=== PATIENT | male | born 1945 | race Caucasian/White ===

== ENCOUNTER 2021-06-04 03:54 | Inpatient (IN) | payer OTHER, MEDICARE, SELFPAY ==
[2021-06-04] VITALS (36 sets, daily range): BP systolic 98–167; BP diastolic 48–91; PULSE 72–100; RESP 12–38; TEMP 36.1–37.7; O2SAT 77–96; BMI 30.1
--- NOTE | 2021-06-04 04:02 | HP.PCM.HOS_ITS ---
HPI - General General Date of Admission: 06/04/21 HPI Narrative YOANDY VELÁZQUEZ, is a 76 M with a significant history of hypertension; pacemaker (reports that when he sleeps he has a flat line and required a pacemaker) and prediabetes who presented to outside hospital ED ([facility]) with shortness of breath that started about 7 days prior to presentation. Associated with his symptoms is pinkish productive cough. Also, patient reports rhinorrhea with a pinkish nasal secretions. He reports dysgeusia and decreased smell sensation. He has not been vaccinated against COVID-19 virus. Reportedly a lady friend from [place] while talking to him over the phone realized that patient was having difficulty breathing so she called 911 and patient was transferred to the hospital. Even then patient had a home covid screen that was positive before the EMS visit. At the Emergency Department at [facility] patient oxygen saturation was 92 to 94% on 50% Venturi mask. His troponin was marginally elevated. [facility] Medical History Cholecystectomy planned Pacemaker Stomach ulcer Home Medications Ultram 50 mg PO/SL QHS 06/04/21 [History Last Taken Unknown] Vitamin C 06/04/21 [History Last Taken Unknown] Vitamin D (with calcium) 06/04/21 [History Last Taken Unknown] ascorbic acid (vitamin C) 500 mg PO DAILY 06/04/21 [History Last Taken Unknown] bilberry 150 mg PO DAILY 06/04/21 [History Last Taken Unknown] cholecalciferol (vitamin D3) 06/04/21 [History Last Taken Unknown] cinnamon bark [Cinnamon] 500 mg PO DAILY 06/04/21 [History Last Taken Unknown] coenzyme Q10 [Co Q-10] 200 mg PO DAILY 06/04/21 [History Last Taken Unknown] dabigatran etexilate [Pradaxa] 150 mg PO BID 06/04/21 [History Last Taken Unknown] ginkgo biloba [Ginkgo] 60 mg PO BID 06/04/21 [History Last Taken Unknown] lisinopril 06/04/21 [History Last Taken Unknown] metoprolol succinate 50 mg PO/SL BID 06/04/21 [History Last Taken Unknown] simvastatin 80 mg PO/SL DAILY 06/04/21 [History Last Taken Unknown] zinc 50 mg PO DAILY 06/04/21 [History Last Taken Unknown] Allergy/AdvReac Type Severity Reaction Status Date / Time codeine Allergy Rash Verified 06/04/21 03:44 Family History Other Cancer Surgical History H/O prostatectomy Social History Smoking Status: Former smoker ROS ROS Narrative Constitutional: Reports fever, and chills. Denies anorexia Eyes: Denies blurry vision, change in eye color, change in vision, discharge from eye(s), double vision, erythema, eye pain, loss of vision or other HEENT: Reports pinkish nasal secretions. Denies abnormal hearing, dysphagia, ear pain, headache(s), hearing loss, sinus pressure, sore throat or other Cardiovascular: Denies chest pain or palpitations. Respiratory/Chest: Shortness of breath. Reports a productive cough. Gastrointestinal: Denies abdominal pain, coffee ground emesis, constipation, diarrhea, dyspepsia, hematemesis, hematochezia, loose stools, melena, nausea, vomiting or other Genitourinary: Denies burning urination, difficulty urinating, dysuria, hematuria, nocturia, urinary frequency, urinary hesitancy, urinary incontinence, urinary urgency or other Musculoskeletal: Denies arthralgias, back pain, joint pain, joint stiffness, joint swelling, myalgias, neck pain or other Neurologic: Denies abnormal gait, abnormal speech, confusion, disequilibrium, dizziness, focal weakness, headache(s), numbness, paresthesias, seizure-like activity, seizures, syncope, tingling, tremor(s) or other Psychiatric: Denies anxiety, depression, homicidal ideation, suicidal ideation or other Endocrinology: Denies cold intolerance, excessive sweating, heat intolerance, polydipsia, polyuria or other Hematologic/Lymphatic: Denies anemia, easy bruising, lymphadenopathy or other Integumentary: Denies rashes Allergic/Immunologic: Denies rhinitis, hives, eczema, asthma or other Vital Signs Vital Signs Vital Signs: Weight Weight: 89.811 kg Body Mass Index (BMI) 30.1 Physical Exam Narrative Physical exam: General: Well-nourished, well-developed. Head: Normocephalic, atraumatic, no tenderness Eyes: PERRLA, EOMI ENT, no trauma, moist mucous membranes, no rhinorrhea Neck: Nontender, full range of motion, no spinal tenderness, deformities, step- off CVS: Regular rate and rhythm. S1-S2 present. No murmur, gallop or rub. Respiratory : Tachypnea, chest wall nontender, rales Abdomen: Soft, nontender, nondistended, normal bowel sounds, no masses : Deferred Back: Nontender, no CVA tenderness, no midline spinal tenderness, deformities, step-offs Extremities: Nontender full range of motion, no trauma Skin: Normal color, no trauma, abrasions Neuro: Alert, oriented, cranial nerves II through XII grossly intact. Psychiatry: Normal mood. Normal affect. Not depressed. Not anxious. Results Lab / Micro Data Result Diagrams: 06/04/21 04:57 06/04/21 04:57 Assessment & Plan Assessment/Plan (1) Acute respiratory failure with hypoxemia: (2) Pneumonia due to 2019 novel coronavirus: (3) Prediabetes: PLAN: Acute hypoxemic respiratory failure secondary to SARS- COV 2 Patient with rapid Covid test at outside hospital. Impression of chest x-ray by radiology at outside hospital was multifocal pneumonia. Patient required Venturi mask 50% to maintain oxygen saturation of 90 to 25% outside hospital. He was brought to our hospital high flow oxygen at 15 L and his oxygen saturation was about 88 percent. Continue oxygen supplementation. Decadron at outside hospital ED. Decadron continued. Creatinine clearance is more than 30. We will start patient on remdesivir. Will trend CMP and CBC. Sputum and pinkish rhinorrhea that could be blood we will rule out PE with chest CTA. Of note patient is on Pradaxa that will be continued. Patient is unclear of why he is on Pradaxa. He reported that previously was on fish oil and the fish oil was switched to Pradaxa. Will admit to intensive care unit and will consult environmental remediation engineer. Tylenol for fever Mucinex ordered Procalcitonin ordered. Prediabetes Review of ED labs showed showed glucose of 166 on BMP. With steroid anticipate blood glucose requirements. Accu-Chek QA CHS with correction scale insulin ordered. DAVID on CKD stage IIIa DAVID likely secondary to COVID-19 virus. CKD likely secondary to prediabetes and hypertensive nephrosclerosis. Creatinine at outside hospital was 1.49. Per ED doctor at outside hospital creatinine baseline is around 1.2. Creatinine on presentation to the hospital is 1.89. Trend BMP. Will avoid fluids at this time. Elevated troponin. Troponin at outside Hospital ED was elevated at 0.064 (normal 0.000 to 0.056). Likely secondary to kidney disease. Will trend troponin at this time. History of HTN Blood pressures are soft. Parameters placed on metoprolol. Trend Blood pressures. DVT Prophylaxis: Home Pradaxa continued. Charges/Coding Visit Charges Inpatient E&M: 42132 Init Hosp L3
[2021-06-04 05:13] LABS: Absolute Lymphocyte Count 0.34 X10^3/uL (0.83-4.51); Absolute Neutrophil Count 8.4 X10^3/uL (2.0-7.7); Basophil# 0.02 X10^3/uL; Basophil% 0.2 % (0-1); Hematocrit 47.2 % (40-54); Hemoglobin 15.6 g/dL (13.0-16.5); Lymphocyte # 0.34 X10^3/ul (0.83-4.51); Lymphocyte % 3.8 % (19-41); Mean Corp Hgb Conc 33.1 g/dL (32-36); Mean Corpuscular Hgb 29.3 pg (27.0-32.0); Mean Corpuscular Volume 88.7 fL (80-94); Mean Platelet Vol. 9.3 fl (6.2-12.0); Monocyte% 2.2 % (0-10); NRBC Flagged by Analyzer 0 % (0-5); Neutrophil # 8.39 X10^3/uL (2.7-7.7); Neutrophil % 93.4 % (47-70); POSITIVE DIFFERENTIAL YES; Platelet Count 296 K/mm3 (150-450); RBC Distribution Width SD 45.1 fl (35.1-43.9); Red Blood Count 5.32 M/mm3 (4.6-6.2)
[2021-06-04 05:14] LABS: Differential Indicated SCAN CRITERIA MET
[2021-06-04 05:27] LABS: Differential Comment SCANNED
[2021-06-04 05:31] LABS: ALB/GLOB Ratio 0.6 RATIO (0.9-2.4); AST(SGOT) 89 U/L (15-37); Alanine Aminotransfer ALT/SGPT 38 U/L (16-61); Albumin, Serum 3.4 g/dL (3.2-5.0); Alkaline Phosphatase 105 U/L (45-117); Anion Gap 10 (5-15); BUN 33 mg/dL (7-18); BUN/Creat Ratio 17.5 RATIO (10-20); Calcium,Total 9.8 mg/dL (8.5-10.1); Chloride 99 mmol/L (98-107); Creatinine, Serum 1.89 mg/dL (0.70-1.30); EST Glomerular Filtration Rate 37 mL/min (>60); Est Glom Filt Rate - Afr Amer 45 mL/min (>60); Estimated Creatinine Clearance 32.17 ml/min; Globulin 5.8 g/dL (2.2-4.2); Glucose 178 mg/dL (74-106); Potassium 3.3 mmol/L (3.5-5.1); Protein, Total 9.2 g/dL (6.4-8.2); Sodium Level 135 mmol/L (136-145)
[2021-06-04 05:38] LABS: Procalcitonin 16.84 ng/mL (0.00-0.09)
--- NOTE | 2021-06-04 05:46 | PCS.PANDOC ---
PANDEMIC DOCUMENTATION INITIATED: Date: 03/21/2021 Time: 190
[2021-06-04] MEDS: guaiFENesin 1,200 MG Tablet 1200 MG PO ×2 (06:04→22:05)
--- NOTE | 2021-06-04 07:14 | EX.PCM.CONCC ---
Assessment & Plan Assessment/Plan (1) Acute respiratory failure with hypoxemia: (2) Pneumonia due to 2019 novel coronavirus: PLAN: RECOMMENDATIONS: 1. Continue patient on heated high flow and wean FiO2 for saturations greater than 90%. 2. If the patient continues to decompensate from a respiratory perspective, BiPAP can be initiated. 3. Continue remdesivir and Decadron as ordered. Monitor liver and renal function accordingly. 4. Obtain infectious diseases consultation. Check CRP as well. 5. Check D-dimer level. CTA chest order has been discontinued. 6. Clarify need for Pradaxa. IMPRESSIONS: 1. Acute hypoxemic respiratory failure secondary to COVID-19 pneumonia The patient presented to the hospital with progressive symptoms within 10 days of onset. He is unvaccinated at baseline. The patient has been initiated on remdesivir and Decadron. Given worsening oxygen status, the patient would likely be a candidate for baricitinib. Recommend infectious diseases consultation. The patient continues to decompensate further, empiric antimicrobials will be initiated. Need to clarify the reason that the patient is on Pradaxa at baseline. Although CTA was initially ordered, I do not feel that it is imperative that a CTA be obtained, especially in light of the patient's renal insufficiency. We will check D-dimer level though. 2. Acute on chronic kidney disease Likely prerenal in etiology and related to acute presentation. Hold on CTA chest given underlying renal insufficiency. Continue to monitor urine output for now. No current indication for renal replacement therapy. Avoid nephrotoxic medications. 3. Obesity/hypertension/hyperlipidemia Complicates care, management, recovery and prognosis. Continue home medications as indicated. CODE status: Discussed CODE status at length including difference between FULL code, DNR-CCA and DNR-CC status. Following discussions about the differences in these status, patient requested full CODE STATUS. Advanced Care Planning Face to Face Time: 12 minutes This note was generated with Pushpayation software. It may contain incorrect words, spelling, and punctuation that were not noted in checking the note before signing. HPI Consult Data Date of Consult: 06/04/21 HPI Narrative Reason for Consultation: Acute hypoxemic respiratory failure secondary to COVID-19 pneumonia HPI Narrative: The patient is a 76-year-old male, with a history as outlined below, who presented to the ICU as a transfer of care from an outside hospital with progressive dyspnea, productive cough and rhinorrhea. The patient is unvaccinated against coronavirus. Although the patient is currently on Pradaxa, he is unable to tell me why he is prescribed the medication. On presentation to the ICU, the patient was noted to be afebrile and hemodynamically stable. He was hypoxemic, requiring the initiation of heated high flow O2 to maintain saturations. Laboratory evaluation revealed a potassium of 3.3 and creatinine of 1.89. Total bili was increased to 1.2 with an AST of 89. Procalcitonin was elevated at 16.8. Outside hospital laboratory records were reviewed: BNP was elevated at 1807. Creatinine there was noted to be 1.49. Coronavirus PCR was positive on June 03. The patient was initiated on Decadron and remdesivir. [facility] Medical History Cholecystectomy planned Pacemaker Stomach ulcer Home Medications Ultram 50 mg PO/SL QHS 06/04/21 [History Last Taken Unknown] Vitamin C 06/04/21 [History Last Taken Unknown] Vitamin D (with calcium) 06/04/21 [History Last Taken Unknown] ascorbic acid (vitamin C) 500 mg PO DAILY 06/04/21 [History Last Taken Unknown] bilberry 150 mg PO DAILY 06/04/21 [History Last Taken Unknown] cholecalciferol (vitamin D3) 06/04/21 [History Last Taken Unknown] cinnamon bark [Cinnamon] 500 mg PO DAILY 06/04/21 [History Last Taken Unknown] coenzyme Q10 [Co Q-10] 200 mg PO DAILY 06/04/21 [History Last Taken Unknown] dabigatran etexilate [Pradaxa] 150 mg PO BID 06/04/21 [History Last Taken Unknown] ginkgo biloba [Ginkgo] 60 mg PO BID 06/04/21 [History Last Taken Unknown] lisinopril 06/04/21 [History Last Taken Unknown] metoprolol succinate 50 mg PO/SL BID 06/04/21 [History Last Taken Unknown] simvastatin 80 mg PO/SL DAILY 06/04/21 [History Last Taken Unknown] zinc 50 mg PO DAILY 06/04/21 [History Last Taken Unknown] Allergy/AdvReac Type Severity Reaction Status Date / Time codeine Allergy Rash Verified 06/04/21 03:44 Family History Other Cancer Surgical History H/O prostatectomy Social History Smoking Status: Former smoker ROS Constitutional Constitutional: Reports fatigue and headache(s) Eyes Eyes: Denies blurry vision or change in vision ENT HEENT: Reports loss taste/smell, nasal congestion and nasal discharge Cardiovascular Cardiovascular: Reports dyspnea; Denies chest pain Respiratory/Chest Respiratory/Chest: Reports cough and dyspnea Gastrointestinal Gastrointestinal: Denies abdominal pain, diarrhea, nausea or vomiting Genitourinary Genitourinary: Denies difficulty urinating Musculoskeletal Musculoskeletal: Denies arthralgias, back pain or joint pain Integumentary Integumentary: Denies lesions, rash or skin ulcer Neurologic Neurologic: Denies abnormal gait Psychiatric Psychiatric: Denies anxiety or depression Endocrine Endocrinology: Reports fatigue Hematologic/Lymphatic Hematologic/Lymphatic: Denies easy bleeding or easy bruising Physical Exam Const alert General Appearance: cooperative and comfortable Nutritional Appearance: obese HEENT normocephalic and head/scalp atraumatic Eyes PERRL, EOMs intact bilaterally and conjunctivae normal Neck supple General: trachea midline Chest inspection of chest normal Resp Effort and Inspection: able to speak in complete sentences and tachypneic Auscultation: rales; Negative for rhonchi or wheezes Cardio regular rate and regular rhythm GI normal to inspection, nondistended, normoactive bowel sounds Extremity no clubbing, cyanosis or edema Skin no rashes or lesions noted Neuro moves all extremities and no focal motor deficits Psych cooperative and affect normal Lab / Micro Data Result Diagrams: 06/04/21 04:57 06/04/21 04:57 Labs: Laboratory Results - last 24 hr 06/04/21 04:57: Procalcitonin 16.84 H 06/04/21 04:57: WBC 9.0, RBC 5.32, Hgb 15.6, Hct 47.2, MCV 88.7, MCH 29.3, MCHC 33.1, RDW Std Deviation 45.1 H, RDW Coeff of Miles 14.0, Plt Count 296, MPV 9.3, Immature Gran % (Auto) 0.400, Neut % (Auto) 93.4 H, Lymph % (Auto) 3.8 L, [place] % (Auto) 2.2, Eos % (Auto) 0.0, Baso % (Auto) 0.2, Absolute Neuts (auto) 8.4 H, Absolute Lymphs (auto) 0.34 L, Nucleated RBC % 0, Differential Comment SCANNED 06/04/21 04:57: Sodium 135 L, Potassium 3.3 L, Chloride 99, Carbon Dioxide 26.0, Anion Gap 10, BUN 33 H, Creatinine 1.89 H, Estim Creat Clear Calc 32.17, Est GFR (MDRD) Af Amer 45 L, Est GFR (MDRD) Non-Af 37 L, BUN/Creatinine Ratio 17.5, Glucose 178 H, Calcium 9.8, Total Bilirubin 1.20 H, AST 89 H, ALT 38, Alkaline Phosphatase 105, Total Protein 9.2 H, Albumin 3.4, Globulin 5.8 H, Albumin/Globulin Ratio 0.6 L Charges/Coding Visit Charges Inpatient E&M: 33379 Init Hosp L3 Multi Select Codes Hospitalists' Procedures Procedures: 01717 Advncd Care Plan 30 Min
--- NOTE | 2021-06-04 07:45 | RAD_ITS ---
STUDY: X-RAY CHEST REASON FOR EXAM: Male, 76 years old. Respiratory Failure, COVID+ TECHNIQUE: Single AP portable view of the chest. COMPARISON: Prior comparison studies are not available for review at this time. FINDINGS: Dual-chamber left-sided cardiac pacer device in place. Prominent interstitial markings more confluent in the left lower lung. There is no demonstrated pleural abnormality. There is borderline cardiomegaly. Normal mediastinum and seth. Normal visualized pulmonary arteries. The thoracic spine is not well-seen. No demonstrated acute osseous changes. There is no demonstrated abnormality of the visualized soft tissue structures of the upper abdomen. RAD/Chest 1 View (Portable) IMPRESSION: Bilateral interstitial infiltrates more prominent in the left lower lung. Electronically Signed: Dangelo Gonzales MD at 9:22 EDT Tel , Service support ,
[2021-06-04] MEDS: Ascorbic Acid 500 MG Tablet PO (08:22)
[2021-06-04] MEDS: Metoprolol(XL)Succ 50 MG Tablet PO ×2 (08:22→22:05)
[2021-06-04] MEDS: Dabigatran Etexilate Mesylate 150 MG Capsule PO ×2 (08:22→22:07)
[2021-06-04] MEDS: dexAMETHasone 2 MG TABLET 6 MG PO (08:23)
[2021-06-04] MEDS: Insulin Lispro 100 UNIT/ML INSULN.PEN SC ×3 (08:24→16:30)
--- NOTE | 2021-06-04 08:42 | PCM.PN.HOSP ---
Subjective Subjective Follow-up on acute hypoxic respiratory failure/COVID-19 pneumonia: Patient was seen and examined. He remains on Airvo. Denies any fever or chest pain. Objective Data Objective Data Vital Signs: Vital Signs Temp Pulse Resp BP Pulse Ox 97 F L 95 16 132/63 H 91 06/04/21 06:00 06/04/21 08:22 06/04/21 06:51 06/04/21 08:22 06/04/21 06:51 Oxygen Flow Rate (L/min) 15 Oxygen Delivery Method Nasal Cannula Weight: 89.8 kg Body Mass Index (BMI) 30.1 Intake & Output: Intake and Output for Last 24 Hours 06/02/21 06/03/21 06/04/21 23:59 23:59 23:59 Intake Total 100 / 100 Balance 100 / 100 Lab / Micro Data Result Diagrams: 06/04/21 04:57 06/04/21 04:57 Labs: Laboratory Results - last 24 hr 06/04/21 04:57: Procalcitonin 16.84 H 06/04/21 04:57: WBC 9.0, RBC 5.32, Hgb 15.6, Hct 47.2, MCV 88.7, MCH 29.3, MCHC 33.1, RDW Std Deviation 45.1 H, RDW Coeff of Miles 14.0, Plt Count 296, MPV 9.3, Immature Gran % (Auto) 0.400, Neut % (Auto) 93.4 H, Lymph % (Auto) 3.8 L, [place] % (Auto) 2.2, Eos % (Auto) 0.0, Baso % (Auto) 0.2, Absolute Neuts (auto) 8.4 H, Absolute Lymphs (auto) 0.34 L, Nucleated RBC % 0, Differential Comment SCANNED 06/04/21 04:57: Sodium 135 L, Potassium 3.3 L, Chloride 99, Carbon Dioxide 26.0, Anion Gap 10, BUN 33 H, Creatinine 1.89 H, Estim Creat Clear Calc 32.17, Est GFR (MDRD) Af Amer 45 L, Est GFR (MDRD) Non-Af 37 L, BUN/Creatinine Ratio 17.5, Glucose 178 H, Calcium 9.8, Total Bilirubin 1.20 H, AST 89 H, ALT 38, Alkaline Phosphatase 105, Total Protein 9.2 H, Albumin 3.4, Globulin 5.8 H, Albumin/Globulin Ratio 0.6 L Physical Exam Narrative Physical exam: General: Alert, Oriented x3, Cooperative, No apparent distress, on Airvo HEENT: Atraumatic Oral: Moist Mucosa Neck: Supple Lungs: Diminished to auscultation Cardiovascular: HS I+II, regular, no murmurs Abdomen: Bowel Sounds Present, Soft, Non Tender Extremities: No edema Assessment & Plan Assessment/Plan (1) Acute respiratory failure with hypoxemia: (2) Pneumonia due to 2019 novel coronavirus: (3) Prediabetes: PLAN: 1. Acute hypoxemic respiratory failure secondary to acute COVID-19 pneumonia Patient is Airvo. Admitting chest x-ray shows bilateral decisional infiltrate more prominent to the left lung Patient's D-dimer is elevated; unable to do CTA of the chest on account of kidney function, continue Would continue on IV Decadron and remdesivir; will be discontinued remdesivir if kidney functions worsens Would consult ID for consideration for Baricitinib Medical Record Retrieval Specialist following 2. DAVID on CKD stage IIIa, creatinine today is 1.89 Creatinine at outside hospital was 1.49. Continue to hold lisinopril Will trend creatinine 3. Hypokalemia, replaced 4. Indeterminant troponins, troponin has plateaued in the 70s secondary to #1 5. Hypertension, controlled, continue metoprolol Charges/Coding Visit Charges Inpatient E&M: 95907 Subs Hosp L3
[2021-06-04 09:08] LABS: Troponin-I HS 74 pg/mL (3.0-78.0)
[2021-06-04 09:24] LABS: Troponin-I HS 89 pg/mL (3.0-78.0)
--- NOTE | 2021-06-04 10:50 | RAD_ITS ---
STUDY: X-RAY CHEST REASON FOR EXAM: Male, 76 years old. PICC Insertion TECHNIQUE: Single AP portable view of the chest. COMPARISON: 06/04/2021, 7:38 AM. FINDINGS: New right-sided PICC line with its tip in the superior vena cava. Dual-chamber left-sided cardiac pacer device in stable position. Bilateral infiltrates slightly more prominent in right upper lobe. There is no demonstrated pleural abnormality. There is mild cardiac enlargement. Normal mediastinum and seth. Normal visualized pulmonary arteries. Atherosclerotic calcifications of the aortic arch. Stable osseous structures. There is no demonstrated abnormality of the visualized soft tissue structures of the upper abdomen. RAD/CXR for Line Placement IMPRESSION: Status post right-sided PICC line placement. Bilateral infiltrates may be slightly worse in the right lung than the previous exam. Electronically Signed: Dangelo Gonzales MD at 11:19 EDT Tel , Service support ,
[2021-06-04 11:45] LABS: D-Dimer Quantitative (DVT/PE) 1.47 FEU/ug/m (0.27-0.49)
[2021-06-04 11:50] LABS: Troponin-I HS 77 pg/mL (3.0-78.0)
[2021-06-04 12:01] LABS: Bedside Glucose 201 mg/dL (70-110)
[2021-06-04 15:28] LABS: M R Staph aureus DNA By PCR Negative (Negative); Probe Check PASS; Specimen Processing Control PASS
--- NOTE | 2021-06-04 16:10 | CASEMGMT ---
RN CM attempted to call patient in room to complete assessment, no answer. Patient currently on Airvo 60L. CM will attempt to complete assessment at later time.
[2021-06-04] MEDS: Potassium Chloride Oral Tablet 20 MEQ 40 MEQ PO (16:28)
[2021-06-04 16:46] LABS: Bedside Glucose 177 mg/dL (70-110)
[2021-06-04] MEDS: Atorvastatin Calcium 40 MG Tablet PO (22:05)
[2021-06-04] MEDS: traMADol 50 MG Tablet PO (22:17)
[2021-06-04] MEDS: Acetaminophen 325 MG Tablet 650 MG PO (22:18)
[2021-06-04] MEDS: Ondansetron 4 MG/2 ML Vial IV (23:44)
[2021-06-05] VITALS (44 sets, daily range): BP systolic 65–167; BP diastolic 44–100; PULSE 60–115; RESP 12–45; TEMP 36.6–39.5; O2SAT 83–97
[2021-06-05 00:01] LABS: Bedside Glucose 148 mg/dL (70-110)
[2021-06-05] MEDS: Haloperidol Lactate 5 MG/ML Vial 2 MG IV (05:23)
[2021-06-05 06:16] LABS: Absolute Neutrophil Count 12.2 X10^3/uL (2.0-7.7); Basophil# 0.03 X10^3/uL; Basophil% 0.2 % (0-1); Hematocrit 41.7 % (40-54); Hemoglobin 13.7 g/dL (13.0-16.5); Lymphocyte % 3.8 % (19-41); Mean Corp Hgb Conc 32.9 g/dL (32-36); Mean Corpuscular Volume 88.2 fL (80-94); Mean Platelet Vol. 10.3 fl (6.2-12.0); Monocyte# 0.47 X10^3/uL; Monocyte% 3.5 % (0-10); NRBC Flagged by Analyzer 0 % (0-5); Neutrophil # 12.23 X10^3/uL (2.7-7.7); Neutrophil % 91.8 % (47-70); POSITIVE DIFFERENTIAL YES; Platelet Count 315 K/mm3 (150-450); RBC Distribution Width CV 14.1 % (11.6-14.6); RBC Distribution Width SD 45.4 fl (35.1-43.9); Red Blood Count 4.73 M/mm3 (4.6-6.2); White Blood Count 13.3 K/mm3 (4.4-11.0)
[2021-06-05 06:22] LABS: Differential Indicated SCAN CRITERIA MET
--- NOTE | 2021-06-05 06:40 | PCM.PN.HOSP ---
Subjective Subjective Follow-up on acute hypoxic respiratory failure/COVID-19 pneumonia: Patient was seen and examined. His oxygen saturation is worsening. He did not tolerate BiPAP. Overnight he started having fevers. He has been started on Zosyn empirically. He will be started on Precedex with the hope of tolerating BiPAP. Objective Data Objective Data Vital Signs: Vital Signs Temp Pulse Resp BP Pulse Ox 101.4 F H 91 40 H 133/74 H 89 06/05/21 00:00 06/05/21 05:55 06/05/21 05:55 06/05/21 04:00 06/05/21 05:55 Oxygen Flow Rate (L/min) 60 Oxygen Delivery Method Airvo Weight: 93.855 kg Body Mass Index (BMI) 30.1 Intake & Output: Intake and Output for Last 24 Hours 06/03/21 06/04/21 06/05/21 23:59 23:59 23:59 Intake Total 966 / 966 262 / 262 Output Total 210 / 210 150 / 150 Balance 756 / 756 112 / 112 Lab / Micro Data Result Diagrams: 06/05/21 05:10 06/05/21 05:10 Labs: Laboratory Results - last 24 hr 06/04/21 04:57: Troponin I High Sens 89 H 06/04/21 08:30: D-Dimer Quant (PE/DVT) Cancelled 06/04/21 08:30: Troponin I High Sens 74 06/04/21 11:20: Troponin I High Sens 77, C-React Prot Ext Range 187.00 H 06/04/21 11:20: D-Dimer Quant (PE/DVT) 1.47 H* 06/04/21 11:20: MRSA (PCR) Negative 06/04/21 11:42: POC Glucose 201 H 06/04/21 16:29: POC Glucose 177 H 06/04/21 22:03: POC Glucose 148 H 06/05/21 05:10: WBC 13.3 H, RBC 4.73, Hgb 13.7, Hct 41.7, MCV 88.2, MCH 29.0, MCHC 32.9, RDW Std Deviation 45.4 H, RDW Coeff of Miles 14.1, Plt Count 315, MPV 10.3, Immature Gran % (Auto) 0.700, Neut % (Auto) 91.8 H, Lymph % (Auto) 3.8 L, [place] % (Auto) 3.5, Eos % (Auto) 0.0, Baso % (Auto) 0.2, Absolute Neuts (auto) 12.2 H, Absolute Lymphs (auto) 0.50 L, Nucleated RBC % 0 Micro: Microbiology 06/04/21 18:05 Urine, Clean Catch Legionella Antigen - Final 06/04/21 18:05 Urine, Clean Catch Streptococcus pneumoniae Antigen (M - Final 06/04/21 09:40 Interface Orders Respiratory Panel (PCR) - Final Radiography Diagnostic Testing: Radiology Impression Chest X-Ray 06/04/21 07:45 IMPRESSION: Bilateral interstitial infiltrates more prominent in the left lower lung. Electronically Signed: Dangelo Gonzales MD at 9:22 EDT Tel , Service support , Chest X-Ray 06/04/21 10:50 IMPRESSION: Status post right-sided PICC line placement. Bilateral infiltrates may be slightly worse in the right lung than the previous exam. Electronically Signed: Dangelo Gonzales MD at 11:19 EDT Tel , Service support , Physical Exam Narrative Physical exam: General: Alert, Oriented x3, Cooperative, in mild respiratory distress, on Airvo, obese HEENT: Atraumatic Oral: Moist Mucosa Neck: Supple Lungs: Diminished to auscultation Cardiovascular: HS I+II, regular, no murmurs Abdomen: Bowel Sounds Present, Soft, Non Tender Extremities: No edema Assessment & Plan Assessment/Plan (1) Acute respiratory failure with hypoxemia: (2) Pneumonia due to 2019 novel coronavirus: (3) Prediabetes: PLAN: 76-year-old male, unvaccinated against coronavirus, who was admitted with worsening shortness of breath. He was transferred from [facility]. 1. Acute hypoxemic respiratory failure secondary to acute COVID-19 pneumonia, worsening Remains on Airvo, did not tolerate BiPAP; BiPAP will be retried again with Precedex Patient is full code Admitting chest x-ray shows bilateral interstitial infiltrates more prominent to the left lung Patient's D-dimer is elevated; unable to do CTA of the chest on account of kidney function, continue Would continue on IV Decadron, remdesivir and baricitinib Infectious disease and lung gun operator consulted 2. DAVID on CKD stage IIIa, appears to have slightly improved today Creatinine today is 1.45; Creatinine at outside hospital was 1.49. Continue to hold lisinopril Will trend creatinine 3. Hypokalemia, replaced 4. Indeterminant troponins, troponin has plateaued in the 70s secondary to #1 5. Hypertension, controlled, continue metoprolol Charges/Coding Visit Charges Inpatient E&M: 31415 Subs Hosp L3
--- NOTE | 2021-06-05 06:41 | PCM.PN.INT ---
Assessment & Plan Assessment/Plan (1) Acute respiratory failure with hypoxemia: (2) Pneumonia due to 2019 novel coronavirus: PLAN: RECOMMENDATIONS: 1. Start Precedex to facilitate BiPAP adherence. Low threshold for intubation. 2. Continue BiPAP therapy and wean FiO2 to maintain oxygen saturations at or above 90%. 3. Start empiric antimicrobials. 4. Continue remdesivir, Decadron and baricitinib. Continue to monitor liver and renal function. 5. Continue DOAC per home regimen. IMPRESSIONS: 1. Acute hypoxemic respiratory failure secondary to COVID-19 pneumonia The patient presented to the hospital with progressive symptoms within 10 days of onset. He is unvaccinated at baseline. Unfortunately, the patient's oxygenation status continues to worsen. He has been reluctant to utilize BiPAP therapy. Therefore, Precedex has been started to facilitate BiPAP adherence. He will be continued on noninvasive positive pressure ventilatory support and FiO2 will be weaned as tolerated. If the patient does not tolerate BiPAP, will proceed with intubation. In the interim, the patient will be continued on remdesivir, Decadron and baricitinib. In light of his current clinical status, empiric antimicrobials have been initiated. Continue DOAC per home regimen. 2. Acute on chronic kidney disease Improving. Likely prerenal in etiology and related to acute presentation. Hold on CTA chest given underlying renal insufficiency. Continue to monitor urine output for now. No current indication for renal replacement therapy. Avoid nephrotoxic medications. 3. Obesity/hypertension/hyperlipidemia Complicates care, management, recovery and prognosis. Continue home medications as indicated. CODE status: Discussed CODE status at length including difference between FULL code, DNR-CCA and DNR-CC status. Following discussions about the differences in these status, patient requested full CODE STATUS. TIME: 34 minutes of critical care time was spent addressing the patient's acute hypoxemic respiratory failure secondary to COVID-19 pneumonia, acute on chronic kidney disease, review of all data and collaboration with care team. Subjective Subjective The patient was seen and examined at the bedside this morning. Events from the last 24 hours have been reviewed. The patient did have a fever overnight of 101.4 ?F. He is currently hemodynamically stable. Nursing staff did report worsening oxygenation overnight along with increased work of breathing. The patient has been intolerant of BiPAP due to anxiety. He is currently on maximum support from a heated high flow perspective. He is currently documented to be overall net +900 mL for the hospital admission. White count is elevated at 13,000. Creatinine has improved to 1.45. AST and ALT are mildly increased. Objective Data Objective Data The patient's most recent lab work, culture data and imaging studies have all been personally reviewed. Coronavirus PCR was positive on June 03. Respiratory viral panel was negative. Strep and urine Legionella antigens were negative. MRSA screen was negative. Vital Signs: Vital Signs Temp Pulse Resp BP Pulse Ox 101.4 F H 91 40 H 133/74 H 89 06/05/21 00:00 06/05/21 05:55 06/05/21 05:55 06/05/21 04:00 06/05/21 05:55 Oxygen Flow Rate (L/min) 60 Oxygen Delivery Method Airvo Weight: 93.855 kg Body Mass Index (BMI) 30.1 Intake & Output: Intake and Output for Last 24 Hours 06/03/21 06/04/21 06/05/21 23:59 23:59 23:59 Intake Total 966 / 966 262 / 262 Output Total 210 / 210 150 / 150 Balance 756 / 756 112 / 112 Lab / Micro Data Attestation: I reviewed the patient's lab results. Result Diagrams: 06/05/21 05:10 06/05/21 05:10 Labs: Laboratory Results - last 24 hr 06/04/21 04:57: Troponin I High Sens 89 H 06/04/21 08:30: D-Dimer Quant (PE/DVT) Cancelled 06/04/21 08:30: Troponin I High Sens 74 06/04/21 11:20: Troponin I High Sens 77, C-React Prot Ext Range 187.00 H 06/04/21 11:20: D-Dimer Quant (PE/DVT) 1.47 H* 06/04/21 11:20: MRSA (PCR) Negative 06/04/21 11:42: POC Glucose 201 H 06/04/21 16:29: POC Glucose 177 H 06/04/21 22:03: POC Glucose 148 H 06/05/21 05:10: WBC 13.3 H, RBC 4.73, Hgb 13.7, Hct 41.7, MCV 88.2, MCH 29.0, MCHC 32.9, RDW Std Deviation 45.4 H, RDW Coeff of Miles 14.1, Plt Count 315, MPV 10.3, Immature Gran % (Auto) 0.700, Neut % (Auto) 91.8 H, Lymph % (Auto) 3.8 L, [place] % (Auto) 3.5, Eos % (Auto) 0.0, Baso % (Auto) 0.2, Absolute Neuts (auto) 12.2 H, Absolute Lymphs (auto) 0.50 L, Nucleated RBC % 0 Micro: Microbiology 06/04/21 18:05 Urine, Clean Catch Legionella Antigen - Final 06/04/21 18:05 Urine, Clean Catch Streptococcus pneumoniae Antigen (M - Final 06/04/21 09:40 Interface Orders Respiratory Panel (PCR) - Final Radiography Diagnostic Testing: Radiology Impression Chest X-Ray 06/04/21 07:45 IMPRESSION: Bilateral interstitial infiltrates more prominent in the left lower lung. Electronically Signed: Dangelo Gonzales MD at 9:22 EDT Tel , Service support , Chest X-Ray 06/04/21 10:50 IMPRESSION: Status post right-sided PICC line placement. Bilateral infiltrates may be slightly worse in the right lung than the previous exam. Electronically Signed: Dangelo Gonzales MD at 11:19 EDT Tel , Service support , Physical Exam Const alert and no apparent distress General Appearance: ill appearing and on BiPAP Nutritional Appearance: obese HEENT normocephalic and head/scalp atraumatic Eyes PERRL, EOMs intact bilaterally and conjunctivae normal Neck supple General: trachea midline Chest inspection of chest normal Resp Effort and Inspection: tachypneic Auscultation: rales; Negative for rhonchi or wheezes Cardio regular rate and regular rhythm GI normal to inspection, nondistended, normoactive bowel sounds Extremity no clubbing, cyanosis or edema Skin no rashes or lesions noted Neuro moves all extremities and no focal motor deficits Psych Mood & Affect: anxious Charges/Coding Procedures Hospitalists Procedures: 22290 Critial Care 1st Hr
[2021-06-05 06:42] LABS: ALB/GLOB Ratio 0.5 RATIO (0.9-2.4); AST(SGOT) 124 U/L (15-37); Alanine Aminotransfer ALT/SGPT 64 U/L (16-61); Albumin, Serum 2.4 g/dL (3.2-5.0); Alkaline Phosphatase 97 U/L (45-117); Anion Gap 8 (5-15); BUN 44 mg/dL (7-18); BUN/Creat Ratio 30.3 RATIO (10-20); Calcium,Total 8.9 mg/dL (8.5-10.1); Chloride 102 mmol/L (98-107); Creatinine, Serum 1.45 mg/dL (0.70-1.30); EST Glomerular Filtration Rate 50 mL/min (>60); Est Glom Filt Rate - Afr Amer 61 mL/min (>60); Estimated Creatinine Clearance 41.93 ml/min; Globulin 4.8 g/dL (2.2-4.2); Glucose 124 mg/dL (74-106); Potassium 4.1 mmol/L (3.5-5.1); Protein, Total 7.2 g/dL (6.4-8.2); Sodium Level 136 mmol/L (136-145)
[2021-06-05] MEDS: Piperacil/Tazobactam 3.375 GM/50 ML ML IV ×3 (06:45→23:47)
[2021-06-05] MEDS: Acetaminophen 650 MG Suppository RC (13:20)
[2021-06-05 15:06] LABS: Bedside Glucose 105 mg/dL (70-110)
[2021-06-05] MEDS: dexAMETHasone 10 MG/ML Vial 6 MG IV (15:57)
[2021-06-05] MEDS: 0.9% Saline Lock 10 ML Syringe IV (15:59)
[2021-06-05 17:41] LABS: Bedside Glucose 101 mg/dL (70-110)
[2021-06-05] MEDS: Enoxaparin 100 MG/ML Syringe 90 MG SC (21:07)
[2021-06-06] VITALS (33 sets, daily range): BP systolic 83–127; BP diastolic 54–76; PULSE 59–90; RESP 12–32; TEMP 35.5–36.2; O2SAT 86–100
[2021-06-06 03:50] LABS: Absolute Lymphocyte Count 0.46 X10^3/uL (0.83-4.51); Absolute Neutrophil Count 5.3 X10^3/uL (2.0-7.7); Basophil# 0.01 X10^3/uL; Basophil% 0.2 % (0-1); Hematocrit 40.8 % (40-54); Lymphocyte # 0.46 X10^3/ul (0.83-4.51); Lymphocyte % 7.7 % (19-41); Mean Corp Hgb Conc 31.9 g/dL (32-36); Mean Corpuscular Hgb 28.9 pg (27.0-32.0); Mean Corpuscular Volume 90.7 fL (80-94); Mean Platelet Vol. 10.1 fl (6.2-12.0); Monocyte# 0.21 X10^3/uL; Monocyte% 3.5 % (0-10); NRBC Flagged by Analyzer 0 % (0-5); Neutrophil # 5.26 X10^3/uL (2.7-7.7); Neutrophil % 88.1 % (47-70); POSITIVE DIFFERENTIAL YES; Platelet Count 260 K/mm3 (150-450); RBC Distribution Width CV 14.5 % (11.6-14.6); RBC Distribution Width SD 48.8 fl (35.1-43.9)
[2021-06-06 03:57] LABS: Differential Indicated SCAN CRITERIA MET
[2021-06-06 04:08] LABS: ALB/GLOB Ratio 0.4 RATIO (0.9-2.4); AST(SGOT) 77 U/L (15-37); Alanine Aminotransfer ALT/SGPT 57 U/L (16-61); Albumin, Serum 2.1 g/dL (3.2-5.0); Alkaline Phosphatase 87 U/L (45-117); Anion Gap 8 (5-15); BUN 63 mg/dL (7-18); BUN/Creat Ratio 30.9 RATIO (10-20); Calcium,Total 8.6 mg/dL (8.5-10.1); Chloride 107 mmol/L (98-107); Creatinine, Serum 2.04 mg/dL (0.70-1.30); EST Glomerular Filtration Rate 34 mL/min (>60); Est Glom Filt Rate - Afr Amer 41 mL/min (>60); Globulin 4.7 g/dL (2.2-4.2); Glucose 149 mg/dL (74-106); Potassium 4.4 mmol/L (3.5-5.1); Protein, Total 6.8 g/dL (6.4-8.2); Sodium Level 140 mmol/L (136-145)
--- NOTE | 2021-06-06 06:58 | PN.CC_ITS ---
Assessment & Plan Assessment/Plan (1) Acute respiratory failure with hypoxemia: (2) Pneumonia due to 2019 novel coronavirus: PLAN: RECOMMENDATIONS: 1. Proceed with intubation. 2. Obtain arterial blood gas 1 hour post intubation. 3. Obtain and send sputum for culture. 4. Wean FiO2/PEEP to maintain oxygen saturations at or above 90%. 5. Start propofol and fentanyl for sedation. 6. Continue empiric antimicrobials. 7. Continue remdesivir, Decadron and baricitinib. Continue to monitor liver and renal function. 8. Continue Therapeutic Lovenox. 9. Start appropriate GI prophylaxis. IMPRESSIONS: 1. Acute hypoxemic respiratory failure secondary to COVID-19 pneumonia The patient presented to the hospital with progressive symptoms within 10 days of onset. He is unvaccinated at baseline. Unfortunately, the patient's oxygenation status continues to worsen. The patient failed to respond to noninvasive positive pressure ventilatory support and ultimately was intubated on June 06. He will be continued on empiric antimicrobials along with remdesivir, Decadron and baricitinib. Continue Lovenox as ordered. Diuretic therapy, as needed, can be utilized to maintain euvolemic state. Will obtain arterial blood gas 1 hour post intubation and obtain sputum and send for culture. 2. Acute on chronic kidney disease Likely prerenal in etiology and related to acute presentation. Continue to monitor urine output for now. No current indication for renal replacement therapy. Avoid nephrotoxic medications. 3. Obesity/hypertension/hyperlipidemia Complicates care, management, recovery and prognosis. Continue home medications as indicated. CODE status: Discussed CODE status at length including difference between FULL code, DNR-CCA and DNR-CC status. Following discussions about the differences in these status, patient requested full CODE STATUS. TIME: 42 minutes of critical care time, independent of procedures, was spent addressing the patient's acute hypoxemic respiratory failure secondary to COVID- 19 pneumonia, acute on chronic kidney disease, review of all data and collaboration with care team. Subjective Subjective The patient was seen and examined at the bedside this morning. Events from the last 24 hours have been reviewed. The patient is currently afebrile and hemodynamically stable. The patient remains on continuous BiPAP support with an FiO2 requirement of 90%. The patient remains on Precedex to facilitate BiPAP adherence. He is currently documented to be overall net +1 L for the hospitalization. White count has improved. However, creatinine has increased to 2.04. Liver function is stable. Over the course of the morning, the patient continued to worsen from a respiratory perspective with increased work of breathing and worsening hypoxemia. CODE STATUS was again confirmed with the patient to be full code and he did wish in fact to proceed with intubation. Intubation Indication: Progressive respiratory failure Consent was obtained from: Patient The patient was placed in the appropriate sniffing position. Preoxygenated sedation via BiPAP was provided for a minimum of 3 minutes. The patient had continuous cardiac as well as pulse oximetry monitoring during the procedure. Procedure sedation was provided by the administration of 2 mg of Versed and 20 mg of etomidate. Direct laryngoscopy was then performed using a number 4 MAC blade, which revealed a grade 1 view. A 7.5 mm endotracheal tube was visualized advancing between the cords to the level of 23 cm at the lip. The stylette was then removed and discarded. Tube placement was confirmed by fogging in the tube along with equal and bilateral breath sounds. Colorimetric change was visualized on the CO2 meter. The cuff was then inflated and the tube secured using a commercially available device. A good pulse oximetry waveform was seen on the monitor throughout the procedure. A portable chest x-ray has been ordered to confirm appropriate placement. The patient tolerated the procedure well. Objective Data Objective Data The patient's most recent lab work, culture data and imaging studies have all been personally reviewed. Coronavirus PCR was positive on June 03. Respiratory viral panel was negative. Strep and urine Legionella antigens were negative. MRSA screen was negative. Vital Signs: Vital Signs Temp Pulse Resp BP Pulse Ox 96.3 F L 60 29 H 108/58 L 92 06/06/21 04:00 06/06/21 06:00 06/06/21 06:00 06/06/21 06:00 06/06/21 06:00 Oxygen Flow Rate (L/min) 60 Oxygen Delivery Method Bi-pap Weight: 92.397 kg Body Mass Index (BMI) 30.1 Intake & Output: Intake and Output for Last 24 Hours 06/04/21 06/05/21 06/06/21 23:59 23:59 23:59 Intake Total 966 / 966 805.32 / 819.22 150.0 / 150.0 Output Total 210 / 210 465 / 465 250 / 250 Balance 756 / 756 340.32 / 354.22 -100.0 / -100.0 Lab / Micro Data Attestation: I reviewed the patient's lab results. Result Diagrams: 06/06/21 03:30 06/06/21 03:30 Labs: Laboratory Results - last 24 hr 06/05/21 13:36: POC Glucose 105 06/05/21 17:09: POC Glucose 101 06/06/21 03:30: WBC 6.0, RBC 4.50 L, Hgb 13.0, Hct 40.8, MCV 90.7, MCH 28.9, MCHC 31.9 L, RDW Std Deviation 48.8 H, RDW Coeff of Miles 14.5, Plt Count 260, MPV 10.1, Immature Gran % (Auto) 0.500, Neut % (Auto) 88.1 H, Lymph % (Auto) 7.7 L, [place] % (Auto) 3.5, Eos % (Auto) 0.0, Baso % (Auto) 0.2, Absolute Neuts (auto) 5.3, Absolute Lymphs (auto) 0.46 L, Nucleated RBC % 0 06/06/21 03:30: Sodium 140, Potassium 4.4, Chloride 107, Carbon Dioxide 25.0, Anion Gap 8, BUN 63 H, Creatinine 2.04 H, Estim Creat Clear Calc 29.80, Est GFR (MDRD) Af Amer 41 L, Est GFR (MDRD) Non-Af 34 L, BUN/Creatinine Ratio 30.9 H, Glucose 149 H, Calcium 8.6, Total Bilirubin 0.70, AST 77 H, ALT 57, Alkaline Phosphatase 87, Total Protein 6.8, Albumin 2.1 L, Globulin 4.7 H, Albumin/Globulin Ratio 0.4 L Micro: Microbiology 06/04/21 18:05 Urine, Clean Catch Legionella Antigen - Final 06/04/21 18:05 Urine, Clean Catch Streptococcus pneumoniae Antigen (M - Final 06/04/21 09:40 Interface Orders Respiratory Panel (PCR) - Final Physical Exam Const alert General Appearance: ill appearing and on BiPAP Nutritional Appearance: obese HEENT normocephalic and head/scalp atraumatic Eyes PERRL, EOMs intact bilaterally and conjunctivae normal Neck supple General: trachea midline Chest inspection of chest normal Resp Effort and Inspection: tachypneic and labored Auscultation: diminished lung sounds; Negative for rhonchi or wheezes Cardio regular rate and regular rhythm GI normal to inspection, nondistended, normoactive bowel sounds Extremity no clubbing, cyanosis or edema Skin no rashes or lesions noted Neuro moves all extremities and no focal motor deficits Psych cooperative Charges/Coding Procedures Hospitalists Procedures: [id number] Critial Care 1st Hr
[2021-06-06] MEDS: Piperacil/Tazobactam 3.375 GM/50 ML ML IV ×3 (07:32→23:06)
--- NOTE | 2021-06-06 09:34 | NURSING ---
06-06-21 decision to be intubated made per dr. de oliveira, 4811 versed given, o936 etmidate given, succ given @ 0937. .937 successfull intubation,
--- NOTE | 2021-06-06 09:39 | RAD_ITS ---
STUDY: X-RAY CHEST REASON FOR EXAM: Male, 76 years old. ET and NG placement -- portable TECHNIQUE: Single AP portable view of the chest. COMPARISON: Comparison is made with prior examination of 06/04/2021. FINDINGS: An endotracheal tube is seen with the tip at 4.1 cm proximal to the dusty. An orogastric tube is seen with the tip just distal to the gastroesophageal junction. A right-sided PICC line catheter is present with the tip in the proximal portion of the superior vena cava. EKG electrodes are seen. Residual bilateral pulmonary infiltrates although there has been improvement especially in the left lower lobe. There is no demonstrated pleural abnormality. Normal size heart. A left-sided dual-chamber pacemaker is seen. Normal mediastinum and seth. Normal visualized pulmonary arteries. There is atherosclerotic tortuosity of the aortic arch and descending thoracic aorta. There are diffuse degenerative changes of the visualized thoracic spine. Normal visualized ribs, clavicles, and shoulders. There is no demonstrated abnormality of the visualized soft tissue structures of the upper abdomen. RAD/Chest 1 View (Portable) IMPRESSION: The tip of the endotracheal tube is at 4.1 cm proximal to the dusty. The tip of the orogastric tube is just distal to the gastroesophageal junction. Persistent patchy bilateral infiltrates. There has been improvement in the left basilar infiltrate. Electronically Signed: Hesham Araiza MD at 10:16 EDT , Service support ,
[2021-06-06] MEDS: Propofol 10MG/Ml 1,000 MG/100 ML Bottle 5.5 MG CONT INF (09:40)
[2021-06-06] MEDS: Ascorbic Acid 500 MG Tablet PO (10:36)
[2021-06-06] MEDS: dexAMETHasone 10 MG/ML Vial 6 MG IV (10:36)
[2021-06-06] MEDS: Enoxaparin 100 MG/ML Syringe 90 MG SC ×2 (10:36→19:59)
[2021-06-06 10:56] LABS: Allen Test Positive; Base Excess -4 mmol/L (-2 to +2); Bicarbonate 22.1 mmol/L (22-26); Blood Gas Specimen Type ART; FI02 95; Mode AC; O2 Delivery Device Adult Vent; PEEP 15; PO2 158 mmHG (75-100); RR 16; SITE R Radial; SO2 99 % (95-99); Total Carbon Dioxide 23 mmol/L; Vt 500; pCO2 40.9 mmHg (35-45); pH 7.34 (7.35-7.45)
--- NOTE | 2021-06-06 11:07 | PCM.PN.HOSP ---
Subjective Subjective Patient is a 76-year-old gentleman unvaccinated against COVID-19 presented with progressive shortness of breath and assessment of acute hypoxic respiratory failure made admitted to the intensive care unit where patient is currently being managed Objective Data Objective Data Vital Signs: Vital Signs Temp Pulse Resp BP Pulse Ox 96.3 F L 63 20 H 107/66 100 06/06/21 10:00 06/06/21 10:00 06/06/21 10:00 06/06/21 10:00 06/06/21 10:00 Oxygen Flow Rate (L/min) 60 Oxygen Delivery Method Mechanical Ventilator Weight: 92.397 kg Body Mass Index (BMI) 30.1 Intake & Output: Intake and Output for Last 24 Hours 06/04/21 06/05/21 06/06/21 23:59 23:59 23:59 Intake Total 966 / 966 805.32 / 819.22 174.37 / 174.37 Output Total 210 / 210 465 / 465 525 / 525 Balance 756 / 756 340.32 / 354.22 -350.63 / -350.63 Lab / Micro Data Result Diagrams: 06/06/21 03:30 06/06/21 03:30 Labs: Laboratory Results - last 24 hr 06/05/21 13:36: POC Glucose 105 06/05/21 17:09: POC Glucose 101 06/06/21 03:30: WBC 6.0, RBC 4.50 L, Hgb 13.0, Hct 40.8, MCV 90.7, MCH 28.9, MCHC 31.9 L, RDW Std Deviation 48.8 H, RDW Coeff of Miles 14.5, Plt Count 260, MPV 10.1, Immature Gran % (Auto) 0.500, Neut % (Auto) 88.1 H, Lymph % (Auto) 7.7 L, [place] % (Auto) 3.5, Eos % (Auto) 0.0, Baso % (Auto) 0.2, Absolute Neuts (auto) 5.3, Absolute Lymphs (auto) 0.46 L, Nucleated RBC % 0 06/06/21 03:30: Sodium 140, Potassium 4.4, Chloride 107, Carbon Dioxide 25.0, Anion Gap 8, BUN 63 H, Creatinine 2.04 H, Estim Creat Clear Calc 29.80, Est GFR (MDRD) Af Amer 41 L, Est GFR (MDRD) Non-Af 34 L, BUN/Creatinine Ratio 30.9 H, Glucose 149 H, Calcium 8.6, Total Bilirubin 0.70, AST 77 H, ALT 57, Alkaline Phosphatase 87, Total Protein 6.8, Albumin 2.1 L, Globulin 4.7 H, Albumin/Globulin Ratio 0.4 L Micro: Microbiology 06/04/21 18:05 Urine, Clean Catch Legionella Antigen - Final 06/04/21 18:05 Urine, Clean Catch Streptococcus pneumoniae Antigen (M - Final 06/04/21 09:40 Interface Orders Respiratory Panel (PCR) - Final ABG Data ABG results: ABG 06/06/21 10:51 Specimen Type ART Sample Site R Radial pH 7.34 L Bicarbonate Actual 22.1 Total CO2 23 Base Excess -4 L O2 Saturation 99 O2 % 95 ABG pCO2 40.9 ABG pO2 158 H Alvino Test Positive Respiration Rate 16 O2 Delivery Device Adult Vent Vent Mode AC Tidal Volume 500 POC PEEP 15 Radiography Diagnostic Testing: Radiology Impression Chest X-Ray 06/06/21 09:39 IMPRESSION: The tip of the endotracheal tube is at 4.1 cm proximal to the dusty. The tip of the orogastric tube is just distal to the gastroesophageal junction. Persistent patchy bilateral infiltrates. There has been improvement in the left basilar infiltrate. Electronically Signed: Hesham Araiza MD at 10:16 EDT , Service support , Physical Exam Narrative GENERAL: Patient on BiPAP HEENT: Atraumatic; EYES; Anicteric, Normal Conjunctiva NECK; supple, normal thyroid, RESPIRATORY: Diminished to auscultation CARDIOVASCULAR: Regular S1 S2, GI: soft, normoactive bowel sounds, : No Renal angle tenderness; EXTREMITIES: No edema, no clubbing, MUSCULOSKELETAL: no muscle waisting NEURO: Awake; no lateralizing signs. SKIN: No Rash PSYCH; Flat affect Assessment & Plan Assessment/Plan (1) Acute respiratory failure with hypoxemia: (2) Pneumonia due to 2019 novel coronavirus: (3) Prediabetes: PLAN: Patient is a 76-year-old gentleman unvaccinated against COVID-19 presented with progressive shortness of breath and assessment of acute hypoxic respiratory failure made admitted to the intensive care unit where patient is currently being managed 1. Acute hypoxic respiratory failure ?Secondary to SARS-CoV-2 pneumonia. Patient was placed on noninvasive ventilation BiPAP due to worsening respiratory status. Treatment initiated with Decadron remdesivir as well as baricitinib 2. Acute kidney injury ?Superimposed on chronic kidney disease stage IIIa. Baseline creatinine 1.49. Patient kidney function is worsening with BUN of 63 and creatinine of 2.04. Consult placed to nephrology 3. Hypokalemia corrected per protocol 4. Elevated troponin ?Secondary to NSTEMI type II as a result of demand ischemia as a result of 1 5. Hypertension - Blood pressure controlled, home medications continued with dose adjustment as needed 6. Dyslipidemia -Patient is on statin therapy, continued at home dose 7. 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 History of paroxysmal A. fib ?Rate controlled on beta-blockers on systemic anticoagulation with dabigatran 9. DVT prophylaxis ?Patient is on dabigatran did continue Charges/Coding Visit Charges Inpatient E&M: 36935 Subs Hosp L3
[2021-06-06 13:28] LABS: Bedside Glucose 146 mg/dL (70-110)
[2021-06-06 13:35] LABS: Bedside Glucose 127 mg/dL (70-110)
--- NOTE | 2021-06-06 13:53 | CASEMGMT ---
RN CM attempted to complete assessment, assessment deferred at this time as patient is currently on vent. CM will attempt again at later time.
[2021-06-06] MEDS: Vital AF 1.2 Cal Liquid 1,000 ML 20 ML GT (14:57)
--- NOTE | 2021-06-06 16:02 | CON.PCM.ID_ITS ---
Assessment & Plan Assessment/Plan (1) Pneumonia due to 2019 novel coronavirus: PLAN: Sx started around 05/28. Unvaccinated. On vent. Isolate for 20 days from start of sx. Vaccine once out of iso. On dex, remdesivir, baricitinib, zosyn. Cxs neg here so far. Sputum pending. Will follow, thank you (2) Acute respiratory failure with hypoxemia: HPI Consult Data Date of Consult: 06/06/21 HPI Narrative HPI Narrative: YOANDY VELÁZQUEZ, is a 76 M who presented to ED here 06/04 as transfer from [place]. C/o one week dyspnea, cough, congestion, change in taste/smell. Unvaccinated for covid. Sent here, admitted on dex and remdesivir, baricitinib and zosyn added. Now on vent. Fever to 103.1. Unable to provide history or ROS due to intubation/sedation. [facility] Medical History Cholecystectomy planned Pacemaker Stomach ulcer Home Medications Ultram 50 mg PO/SL QHS 06/04/21 [History Last Taken Unknown] Vitamin C 06/04/21 [History Last Taken Unknown] Vitamin D (with calcium) 06/04/21 [History Last Taken Unknown] ascorbic acid (vitamin C) 500 mg PO DAILY 06/04/21 [History Last Taken Unknown] bilberry 150 mg PO DAILY 06/04/21 [History Last Taken Unknown] cholecalciferol (vitamin D3) 06/04/21 [History Last Taken Unknown] cinnamon bark [Cinnamon] 500 mg PO DAILY 06/04/21 [History Last Taken Unknown] coenzyme Q10 [Co Q-10] 200 mg PO DAILY 06/04/21 [History Last Taken Unknown] dabigatran etexilate [Pradaxa] 150 mg PO BID 06/04/21 [History Last Taken Unknown] ginkgo biloba [Ginkgo] 60 mg PO BID 06/04/21 [History Last Taken Unknown] lisinopril 06/04/21 [History Last Taken Unknown] metoprolol succinate 50 mg PO/SL BID 06/04/21 [History Last Taken Unknown] simvastatin 80 mg PO/SL DAILY 06/04/21 [History Last Taken Unknown] zinc 50 mg PO DAILY 06/04/21 [History Last Taken Unknown] Allergy/AdvReac Type Severity Reaction Status Date / Time codeine Allergy Rash Verified 06/04/21 03:44 Family History Other Cancer Surgical History H/O prostatectomy Social History Smoking Status: Former smoker Physical Exam Const Constitutional Narrative: ill appearing, intubated, sedated Eyes PERRL Neck supple and No nodes Resp Effort and Inspection: mechanically ventilated Auscultation: diminished lung sounds Cardio regular rate and regular rhythm GI normal to inspection, nondistended, normoactive bowel sounds Skin no rashes or lesions noted Neuro CN's II-XII intact bilaterally Lab / Micro Data Result Diagrams: 06/06/21 03:30 06/06/21 03:30 Labs: Laboratory Results - last 24 hr 06/05/21 17:09: POC Glucose 101 06/05/21 23:31: POC Glucose 146 H 06/06/21 03:30: WBC 6.0, RBC 4.50 L, Hgb 13.0, Hct 40.8, MCV 90.7, MCH 28.9, MCHC 31.9 L, RDW Std Deviation 48.8 H, RDW Coeff of Miles 14.5, Plt Count 260, MPV 10.1, Immature Gran % (Auto) 0.500, Neut % (Auto) 88.1 H, Lymph % (Auto) 7.7 L, [place] % (Auto) 3.5, Eos % (Auto) 0.0, Baso % (Auto) 0.2, Absolute Neuts (auto) 5.3, Absolute Lymphs (auto) 0.46 L, Nucleated RBC % 0 06/06/21 03:30: Sodium 140, Potassium 4.4, Chloride 107, Carbon Dioxide 25.0, Anion Gap 8, BUN 63 H, Creatinine 2.04 H, Estim Creat Clear Calc 29.80, Est GFR (MDRD) Af Amer 41 L, Est GFR (MDRD) Non-Af 34 L, BUN/Creatinine Ratio 30.9 H, Glucose 149 H, Calcium 8.6, Total Bilirubin 0.70, AST 77 H, ALT 57, Alkaline Phosphatase 87, Total Protein 6.8, Albumin 2.1 L, Globulin 4.7 H, Albumin/Globulin Ratio 0.4 L 06/06/21 13:29: POC Glucose 127 H Micro: Microbiology 06/06/21 09:40 Sputum, Induced/[place]uk[place] Gram Stain - Final ABG Data ABG results: ABG 06/06/21 10:51 Specimen Type ART Sample Site R Radial pH 7.34 L Bicarbonate Actual 22.1 Total CO2 23 Base Excess -4 L O2 Saturation 99 O2 % 95 ABG pCO2 40.9 ABG pO2 158 H Alvino Test Positive Respiration Rate 16 O2 Delivery Device Adult Vent Vent Mode AC Tidal Volume 500 POC PEEP 15 Radiology Impression Chest X-Ray 06/06/21 09:39 IMPRESSION: The tip of the endotracheal tube is at 4.1 cm proximal to the dusty. The tip of the orogastric tube is just distal to the gastroesophageal junction. Persistent patchy bilateral infiltrates. There has been improvement in the left basilar infiltrate. Electronically Signed: Hesham Araiza MD at 10:16 EDT , Service support ,
[2021-06-06] MEDS: Propofol 10MG/Ml 1,000 MG/100 ML Bottle 16.6 MG CONT INF ×2 (16:33→22:13)
[2021-06-06 17:21] LABS: Bedside Glucose 137 mg/dL (70-110)
[2021-06-06] MEDS: Atorvastatin Calcium 40 MG Tablet PO (19:59)
[2021-06-07] VITALS (35 sets, daily range): BP systolic 93–140; BP diastolic 46–70; PULSE 59–75; RESP 16–20; TEMP 35.7–36.6; O2SAT 91–97
[2021-06-07 01:56] LABS: Bedside Glucose 142 mg/dL (70-110)
[2021-06-07] MEDS: Propofol 10MG/Ml 1,000 MG/100 ML Bottle 22.2 MG CONT INF (02:43)
[2021-06-07 04:26] LABS: Absolute Lymphocyte Count 0.56 X10^3/uL (0.83-4.51); Absolute Neutrophil Count 7.5 X10^3/uL (2.0-7.7); Eosinophil# 0.01 X10^3/uL; Eosinophils% 0.1 % (0-5); Hematocrit 37.6 % (40-54); Hemoglobin 12.7 g/dL (13.0-16.5); Lymphocyte # 0.56 X10^3/ul (0.83-4.51); Lymphocyte % 6.6 % (19-41); Mean Corp Hgb Conc 33.8 g/dL (32-36); Mean Corpuscular Volume 91.7 fL (80-94); Mean Platelet Vol. 10.6 fl (6.2-12.0); Monocyte# 0.38 X10^3/uL; Monocyte% 4.5 % (0-10); NRBC Flagged by Analyzer 0 % (0-5); Neutrophil % 88.3 % (47-70); POSITIVE DIFFERENTIAL YES; Platelet Count 298 K/mm3 (150-450); RBC Distribution Width CV 14.8 % (11.6-14.6); RBC Distribution Width SD 49.5 fl (35.1-43.9); White Blood Count 8.5 K/mm3 (4.4-11.0)
[2021-06-07 04:27] LABS: Differential Indicated SCAN CRITERIA MET
[2021-06-07] MEDS: Piperacil/Tazobactam 3.375 GM/50 ML ML IV ×2 (05:32→13:58)
[2021-06-07] MEDS: TITRATION PARAMETER CHANGE 1 EACH IV (06:18)
[2021-06-07 06:19] LABS: ALB/GLOB Ratio 0.4 RATIO (0.9-2.4); AST(SGOT) 60 U/L (15-37); Alanine Aminotransfer ALT/SGPT 46 U/L (16-61); Albumin, Serum 1.9 g/dL (3.2-5.0); Alkaline Phosphatase 75 U/L (45-117); Anion Gap 11 (5-15); BUN 76 mg/dL (7-18); Chloride 105 mmol/L (98-107); EST Glomerular Filtration Rate 37 mL/min (>60); Est Glom Filt Rate - Afr Amer 45 mL/min (>60); Globulin 4.4 g/dL (2.2-4.2); Glucose 143 mg/dL (74-106); Magnesium 2.7 mg/dL (1.6-2.6); Potassium 4.5 mmol/L (3.5-5.1); Protein, Total 6.3 g/dL (6.4-8.2); Sodium Level 137 mmol/L (136-145)
[2021-06-07 06:30] LABS: Bedside Glucose 138 mg/dL (70-110)
--- NOTE | 2021-06-07 06:49 | PCM.PN.INT ---
Assessment & Plan Assessment/Plan (1) Acute respiratory failure with hypoxemia: (2) Pneumonia due to 2019 novel coronavirus: PLAN: RECOMMENDATIONS: 1. Continue patient on assist control mode of mechanical ventilation. Wean FiO2/PEEP to maintain saturations at or above 90%. 2. Continue remdesivir as ordered. Continue to monitor liver and renal function. 3. Continue empiric antimicrobials as ordered. 4. Continue Decadron and baricitinib. 5. Continue tube feeds as tolerated. 6. Continue appropriate prophylaxis. IMPRESSIONS: 1. Acute hypoxemic respiratory failure secondary to COVID-19 pneumonia The patient presented to the hospital with progressive symptoms within 10 days of onset. He is unvaccinated at baseline. Unfortunately, the patient's oxygenation status continues to worsen. The patient failed to respond to noninvasive positive pressure ventilatory support and ultimately was intubated on June 06. He will be continued on empiric antimicrobials along with remdesivir, Decadron and baricitinib. Continue Lovenox as ordered. Diuretic therapy, as needed, can be utilized to maintain euvolemic state. Continue tube feeds as tolerated. 2. Acute on chronic kidney disease Likely prerenal in etiology and related to acute presentation. Continue to monitor urine output for now. No current indication for renal replacement therapy. Avoid nephrotoxic medications. 3. Obesity/hypertension/hyperlipidemia Complicates care, management, recovery and prognosis. Continue home medications as indicated. CODE status: Discussed CODE status at length including difference between FULL code, DNR-CCA and DNR-CC status. Following discussions about the differences in these status, patient requested full CODE STATUS. TIME: 33 minutes of critical care time, independent of procedures, was spent addressing the patient's acute hypoxemic respiratory failure secondary to COVID-19 pneumonia, acute on chronic kidney disease, review of all data and collaboration with care team. Subjective Subjective The patient was seen and examined at the bedside this morning. Events from the last 24 hours have been reviewed. The patient is currently afebrile, hemodynamically stable and maintaining appropriate oxygen saturations on assist control mode of mechanical ventilation with an FiO2 requirement of 55% and PEEP of 15. The patient is currently tolerating tube feeds. He remains sedated on propofol and fentanyl. He is currently documented to be overall net +1.5 L for the hospitalization. Creatinine has improved somewhat this morning to 1.9. Objective Data Objective Data The patient's most recent lab work, culture data and imaging studies have all been personally reviewed. Coronavirus PCR was positive on June 03. Respiratory viral panel was negative. Strep and urine Legionella antigens were negative. MRSA screen was negative. Vital Signs: Vital Signs Temp Pulse Resp BP Pulse Ox 97.5 F L 65 16 123/51 H 93 06/07/21 06:00 06/07/21 06:00 06/07/21 06:00 06/07/21 06:00 06/07/21 06:00 Oxygen Flow Rate (L/min) 60 Oxygen Delivery Method Mechanical Ventilator Weight: 91.399 kg Body Mass Index (BMI) 30.1 Intake & Output: Intake and Output for Last 24 Hours 06/05/21 06/06/21 06/07/21 23:59 23:59 23:59 Intake Total 805.32 / 819.22 1409.79 / 1429.49 550.47 / 550.47 Output Total 465 / 465 1225 / 1225 315 / 315 Balance 340.32 / 354.22 184.79 / 204.49 235.47 / 235.47 Lab / Micro Data Attestation: I reviewed the patient's lab results. Result Diagrams: 06/07/21 04:00 06/07/21 04:00 Labs: Laboratory Results - last 24 hr 06/05/21 23:31: POC Glucose 146 H 06/06/21 13:29: POC Glucose 127 H 06/06/21 17:10: POC Glucose 137 H 06/06/21 23:13: POC Glucose 142 H 06/07/21 04:00: WBC 8.5, RBC 4.10 L, Hgb 12.7 L, Hct 37.6 L, MCV 91.7, MCH 31.0, MCHC 33.8 D, RDW Std Deviation 49.5 H, RDW Coeff of Miles 14.8 H, Plt Count 298, MPV 10.6, Immature Gran % (Auto) 0.500, Neut % (Auto) 88.3 H, Lymph % (Auto) 6.6 L, Emanuel % (Auto) 4.5, Eos % (Auto) 0.1, Baso % (Auto) 0.0, Absolute Neuts (auto) 7.5, Absolute Lymphs (auto) 0.56 L, Nucleated RBC % 0 06/07/21 04:00: Sodium 137, Potassium 4.5, Chloride 105, Carbon Dioxide 21.0, Anion Gap 11, BUN 76 H, Creatinine 1.90 H, Estim Creat Clear Calc 32.00, Est GFR (MDRD) Af Amer 45 L, Est GFR (MDRD) Non-Af 37 L, BUN/Creatinine Ratio 40.0 H, Glucose 143 H, Calcium 8.0 L, Magnesium 2.7 H, Total Bilirubin 0.80, AST 60 H, ALT 46, Alkaline Phosphatase 75, Total Protein 6.3 L, Albumin 1.9 L, Globulin 4.4 H, Albumin/Globulin Ratio 0.4 L 06/07/21 05:37: POC Glucose 138 H Micro: Microbiology 06/06/21 09:40 Sputum, Induced/Lukens Gram Stain - Final 06/04/21 18:05 Urine, Clean Catch Legionella Antigen - Final 06/04/21 18:05 Urine, Clean Catch Streptococcus pneumoniae Antigen (M - Final 06/04/21 09:40 Interface Orders Respiratory Panel (PCR) - Final ABG Data ABG results: ABG 06/06/21 10:51 Specimen Type ART Sample Site R Radial pH 7.34 L Bicarbonate Actual 22.1 Total CO2 23 Base Excess -4 L O2 Saturation 99 O2 % 95 ABG pCO2 40.9 ABG pO2 158 H Alvino Test Positive Respiration Rate 16 O2 Delivery Device Adult Vent Vent Mode AC Tidal Volume 500 POC PEEP 15 Radiography Diagnostic Testing: Radiology Impression Chest X-Ray 06/06/21 09:39 IMPRESSION: The tip of the endotracheal tube is at 4.1 cm proximal to the dusty. The tip of the orogastric tube is just distal to the gastroesophageal junction. Persistent patchy bilateral infiltrates. There has been improvement in the left basilar infiltrate. Electronically Signed: Hesham Araiza MD at 10:16 EDT , Service support , Physical Exam Const alert and no apparent distress General Appearance: intubated and patient mechanically ventilated Nutritional Appearance: obese HEENT normocephalic and head/scalp atraumatic Mouth: endotracheal tube in place and OG tube in place Eyes PERRL, EOMs intact bilaterally and conjunctivae normal Neck supple General: trachea midline Chest inspection of chest normal Resp Auscultation: diminished lung sounds; Negative for rales, rhonchi or wheezes Cardio regular rate and regular rhythm GI normal to inspection, nondistended, normoactive bowel sounds Extremity no clubbing, cyanosis or edema Skin no rashes or lesions noted Neuro moves all extremities and no focal motor deficits Psych cooperative Charges/Coding Procedures Hospitalists Procedures: 88706 Critial Care 1st Hr
--- NOTE | 2021-06-07 07:04 | PCM.PN.HOSP ---
Subjective Subjective Patient was intubated in view of progressive respiratory failure the day prior. Objective Data Objective Data Vital Signs: Vital Signs Temp Pulse Resp BP Pulse Ox 97.5 F L 65 16 123/51 H 93 06/07/21 06:00 06/07/21 06:00 06/07/21 06:00 06/07/21 06:00 06/07/21 06:00 Oxygen Flow Rate (L/min) 60 Oxygen Delivery Method Mechanical Ventilator Weight: 91.399 kg Body Mass Index (BMI) 30.1 Intake & Output: Intake and Output for Last 24 Hours 06/05/21 06/06/21 06/07/21 23:59 23:59 23:59 Intake Total 805.32 / 819.22 1409.79 / 1429.49 550.47 / 550.47 Output Total 465 / 465 1225 / 1225 315 / 315 Balance 340.32 / 354.22 184.79 / 204.49 235.47 / 235.47 Lab / Micro Data Result Diagrams: 06/07/21 04:00 06/07/21 04:00 Labs: Laboratory Results - last 24 hr 06/05/21 23:31: POC Glucose 146 H 06/06/21 13:29: POC Glucose 127 H 06/06/21 17:10: POC Glucose 137 H 06/06/21 23:13: POC Glucose 142 H 06/07/21 04:00: WBC 8.5, RBC 4.10 L, Hgb 12.7 L, Hct 37.6 L, MCV 91.7, MCH 31.0, MCHC 33.8 D, RDW Std Deviation 49.5 H, RDW Coeff of Miles 14.8 H, Plt Count 298, MPV 10.6, Immature Gran % (Auto) 0.500, Neut % (Auto) 88.3 H, Lymph % (Auto) 6.6 L, [place] % (Auto) 4.5, Eos % (Auto) 0.1, Baso % (Auto) 0.0, Absolute Neuts (auto) 7.5, Absolute Lymphs (auto) 0.56 L, Nucleated RBC % 0 06/07/21 04:00: Sodium 137, Potassium 4.5, Chloride 105, Carbon Dioxide 21.0, Anion Gap 11, BUN 76 H, Creatinine 1.90 H, Estim Creat Clear Calc 32.00, Est GFR (MDRD) Af Amer 45 L, Est GFR (MDRD) Non-Af 37 L, BUN/Creatinine Ratio 40.0 H, Glucose 143 H, Calcium 8.0 L, Magnesium 2.7 H, Total Bilirubin 0.80, AST 60 H, ALT 46, Alkaline Phosphatase 75, Total Protein 6.3 L, Albumin 1.9 L, Globulin 4.4 H, Albumin/Globulin Ratio 0.4 L 06/07/21 05:37: POC Glucose 138 H Micro: Microbiology 06/06/21 09:40 Sputum, Induced/Lukens Gram Stain - Final 06/04/21 18:05 Urine, Clean Catch Legionella Antigen - Final 06/04/21 18:05 Urine, Clean Catch Streptococcus pneumoniae Antigen (M - Final 06/04/21 09:40 Interface Orders Respiratory Panel (PCR) - Final ABG Data ABG results: ABG 06/06/21 10:51 Specimen Type ART Sample Site R Radial pH 7.34 L Bicarbonate Actual 22.1 Total CO2 23 Base Excess -4 L O2 Saturation 99 O2 % 95 ABG pCO2 40.9 ABG pO2 158 H Alvino Test Positive Respiration Rate 16 O2 Delivery Device Adult Vent Vent Mode AC Tidal Volume 500 POC PEEP 15 Radiography Diagnostic Testing: Radiology Impression Chest X-Ray 06/06/21 09:39 IMPRESSION: The tip of the endotracheal tube is at 4.1 cm proximal to the dusty. The tip of the orogastric tube is just distal to the gastroesophageal junction. Persistent patchy bilateral infiltrates. There has been improvement in the left basilar infiltrate. Electronically Signed: Hesham Araiza MD at 10:16 EDT , Service support , Physical Exam Narrative GENERAL: Patient on the vent HEENT: Atraumatic; EYES; Anicteric, Normal Conjunctiva NECK; supple, normal thyroid, RESPIRATORY: Diminished to auscultation CARDIOVASCULAR: Regular S1 S2, GI: soft, normoactive bowel sounds, : No Renal angle tenderness; EXTREMITIES: No edema, no clubbing, MUSCULOSKELETAL: no muscle waisting NEURO: Patient on the vent SKIN: No Rash PSYCH; on the vent Assessment & Plan Assessment/Plan (1) Acute respiratory failure with hypoxemia: (2) Pneumonia due to 2019 novel coronavirus: (3) Prediabetes: PLAN: Patient is a 76-year-old gentleman unvaccinated against COVID-19 presented with progressive shortness of breath and assessment of acute hypoxic respiratory failure made admitted to the intensive care unit where patient is currently being managed 1. Acute hypoxic respiratory failure ?Secondary to SARS-CoV-2 pneumonia. Patient was placed on noninvasive ventilation BiPAP due to worsening respiratory status. Treatment initiated with Decadron remdesivir as well as baricitinib -06/07/2022; was intubated in view of progressive respiratory failure the day prior. 2. Acute kidney injury ?Superimposed on chronic kidney disease stage IIIa. Baseline creatinine 1.49. Patient kidney function is worsening with BUN of 63 and creatinine of 2.04. Consult placed to nephrology 3. Hypokalemia corrected per protocol 4. Elevated troponin ?Secondary to NSTEMI type II as a result of demand ischemia as a result of 1 5. Hypertension - Blood pressure controlled, home medications continued with dose adjustment as needed 6. Dyslipidemia -Patient is on statin therapy, continued at home dose 7. 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 History of paroxysmal A. fib ?Rate controlled on beta-blockers on systemic anticoagulation with dabigatran 9. DVT prophylaxis ?Patient is on dabigatran did continue Charges/Coding Visit Charges Inpatient E&M: 94376 [facility] H[facility] L3
[2021-06-07] MEDS: dexAMETHasone 10 MG/ML Vial 6 MG IV (08:20)
[2021-06-07] MEDS: Ascorbic Acid 500 MG Tablet PO (08:20)
[2021-06-07] MEDS: Enoxaparin 100 MG/ML Syringe 90 MG SC ×2 (08:20→22:14)
[2021-06-07] MEDS: Propofol 10MG/Ml 1,000 MG/100 ML Bottle 21.9 MG CONT INF ×4 (08:21→21:50)
[2021-06-07] MEDS: CHLORHEXIDINE GLUC 2% CLOTH 1 EACH TOWELETTE TOPICAL (09:24)
[2021-06-07] MEDS: Chlorhexidine 15 ML PO ×2 (09:24→22:14)
--- NOTE | 2021-06-07 11:37 | CON.PCM.RE_ITS ---
Assessment & Plan Assessment/Plan (1) DAVID (acute kidney injury): (2) Acute respiratory failure with hypoxemia: (3) Pneumonia due to 2019 novel coronavirus: PLAN: Patient was admitted for acute respiratory failure with hypoxemia and pneumonia secondary to COVID-19 infection. Unfortunately respiratory status worsened and patient was intubated. We were consulted for renal insufficiency. Upon presentation to the hospital, creatinine was elevated at 1.89 mg/dL, improved to 1.45 and today is 1.90 mg/dL. This could be acute kidney injury however patient may have CKD, baseline Creatinine unknown. We have no past Creat inine trends to review. Fortunately patient is nonoliguric, no peripheral edema and CXR reviewed which showed bilateral interstitial infiltrates. Potassium and acid-base acceptable. At this time there is no acute indication for [employer]. Blood pressures are acceptable/marginal, fortunately patient is not requiring IV pressors at this time. He is not on any antihypertensives. Reviewed patient's home medication list, lisinopril and metoprolol are on hold Recommend avoiding nephrotoxic agents. Blood cultures so far no growth to date. He is on antibiotic, Zosyn. Patient is receiving enteral feedings with goal at 60 mL/h. Admission weight ~90kg. Last weight ~91kg. Further orders forthcoming as hospitalization evolves, thank you for allowing us to dissipate in the care of Mr. Preston. HPI Consult Data Date of Consult: 06/07/21 HPI Narrative HPI Narrative: YOANDY PRESTON, is a 76 M with past medical history significant for hypertension, PPM placement, who was taken to the emergency room via EMS as patient was having difficult time breathing. He was subsequently transferred to [facility], he is ICU. Patient was initially on BiPAP, unfortunately respiratory status worsened and he was intubated 06/06. Patient was admitted for acute respiratory failure with hypoxemia, pneumonia secondary to COVID-19 infection. We were consulted for acute kidney injury. Information is gathered from the chart. It is not known if the patient has a history of CKD. The only lab work to review is from this hospitalization: on 06/04/2021 creatinine 1.89 mg/dL, creatinine improved to 1.45 on 06/05. On 06/06/2021 creatinine 2.04 and today his creatinine is 1.90 mg/dL. Patient had 1.2 L urine output yesterday. [facility] Medical History Cholecystectomy planned Pacemaker Stomach ulcer Home Medications Ultram 50 mg PO/SL QHS 06/04/21 [History Last Taken Unknown] Vitamin C 06/04/21 [History Last Taken Unknown] Vitamin D (with calcium) 06/04/21 [History Last Taken Unknown] ascorbic acid (vitamin C) 500 mg PO DAILY 06/04/21 [History Last Taken Unknown] bilberry 150 mg PO DAILY 06/04/21 [History Last Taken Unknown] cholecalciferol (vitamin D3) 06/04/21 [History Last Taken Unknown] cinnamon bark [Cinnamon] 500 mg PO DAILY 06/04/21 [History Last Taken Unknown] coenzyme Q10 [Co Q-10] 200 mg PO DAILY 06/04/21 [History Last Taken Unknown] dabigatran etexilate [Pradaxa] 150 mg PO BID 06/04/21 [History Last Taken Unknown] ginkgo biloba [Ginkgo] 60 mg PO BID 06/04/21 [History Last Taken Unknown] lisinopril 06/04/21 [History Last Taken Unknown] metoprolol succinate 50 mg PO/SL BID 06/04/21 [History Last Taken Unknown] simvastatin 80 mg PO/SL DAILY 06/04/21 [History Last Taken Unknown] zinc 50 mg PO DAILY 06/04/21 [History Last Taken Unknown] Allergy/AdvReac Type Severity Reaction Status Date / Time codeine Allergy Rash Verified 06/04/21 03:44 Family History Other Cancer Surgical History H/O prostatectomy Social History Smoking Status: Former smoker ROS ROS Narrative Unable to obtain Physical Exam Narrative Constitutional: no acute distress. Intubated, on vent support Respiratory: Diminished breath sounds Cardio: S1, S2, rhythm and rate regular Extremities: No pitting edema Genitourinary: Indwelling Chan, straw-colored urine noted in bag Lab / Micro Data Result Diagrams: 06/07/21 04:00 06/07/21 04:00 Labs: Laboratory Results - last 24 hr 06/05/21 23:31: POC Glucose 146 H 06/06/21 13:29: POC Glucose 127 H 06/06/21 17:10: POC Glucose 137 H 06/06/21 23:13: POC Glucose 142 H 06/07/21 04:00: WBC 8.5, RBC 4.10 L, Hgb 12.7 L, Hct 37.6 L, MCV 91.7, MCH 31.0, MCHC 33.8 D, RDW Std Deviation 49.5 H, RDW Coeff of Miles 14.8 H, Plt Count 298, MPV 10.6, Immature Gran % (Auto) 0.500, Neut % (Auto) 88.3 H, Lymph % (Auto) 6.6 L, [place] % (Auto) 4.5, Eos % (Auto) 0.1, Baso % (Auto) 0.0, Absolute Neuts (auto) 7.5, Absolute Lymphs (auto) 0.56 L, Nucleated RBC % 0 06/07/21 04:00: Sodium 137, Potassium 4.5, Chloride 105, Carbon Dioxide 21.0, Anion Gap 11, BUN 76 H, Creatinine 1.90 H, Estim Creat Clear Calc 32.00, Est GFR (MDRD) Af Amer 45 L, Est GFR (MDRD) Non-Af 37 L, BUN/Creatinine Ratio 40.0 H, Glucose 143 H, Calcium 8.0 L, Magnesium 2.7 H, Total Bilirubin 0.80, AST 60 H, ALT 46, Alkaline Phosphatase 75, Total Protein 6.3 L, Albumin 1.9 L, Globulin 4.4 H, Albumin/Globulin Ratio 0.4 L 06/07/21 05:37: POC Glucose 138 H Micro: Microbiology 06/06/21 09:40 Sputum, Induced/Lukens Gram Stain - Final 06/06/21 09:40 Sputum, Induced/Lukens Respiratory Culture - Preliminary Appears to be normal respiratory chaya. Further studies to follow. 06/05/21 13:15 Blood Culture (Wb) - Anticubital Left Blood Culture - Preliminary No growth in 48 hours.
--- NOTE | 2021-06-07 13:57 | CASEMGMT ---
SW participated in ICU rounds this morning. SW called daughter Susie to offer support. SW remains available for support to family as needed. STEWART Solares
[2021-06-07] MEDS: Senna/Docusate Sodium 1 Tablet 2 TABLET PO (15:09)
[2021-06-07 15:20] LABS: Bacteria 0 SEEN /hpf (None Seen); Mucous, Urine 0 SEEN /hpf (<or=2+)
[2021-06-07 15:25] LABS: Color, Urine Yellow (Yellow); Glucose, Dipstick Normal (Normal); Ketone-Dipstick Negative (Negative); Leukocyte Esterase-Dipstick 25 /ul (Negative); Nitrite-Dipstick Negative (Negative); Occult Blood-Urine 250 /ul (Negative); Protein-Dipstick 30 mg/dl (Negative); Specific Gravity, Urine 1.015 (1.002-1.030); Urine Bilirubin Dipstick Negative (Negative); Urine Clarity Cloudy (Clear); Urine Urobilinogen Normal (Normal)
[2021-06-07 15:43] LABS: Red Blood Cells-Urine > 100 SEEN /hpf (0-5); White Blood Cells 0-5 SEEN /hpf (0-5)
[2021-06-07 15:48] LABS: Squamous Epithelial Cells - UA 0-5 SEEN /hpf (0-5); Uric Acid Crystals Ur 1+ /hpf (<or=1+)
[2021-06-07 17:35] LABS: Bedside Glucose 138 mg/dL (70-110)
[2021-06-07] MEDS: Insulin Lispro 100 UNIT/ML INSULN.PEN SC ×2 (17:37→22:14)
[2021-06-07] MEDS: Atorvastatin Calcium 40 MG Tablet PO (22:14)
[2021-06-07] MEDS: Vital AF 1.2 Cal Liquid 1,000 ML 60 ML GT (22:15)
[2021-06-07 23:21] LABS: Bedside Glucose 172 mg/dL (70-110)
[2021-06-07] MEDS: Propofol 10MG/Ml 1,000 MG/100 ML Bottle 27.4 MG CONT INF (23:46)
[2021-06-08] VITALS (36 sets, daily range): BP systolic 96–131; BP diastolic 48–63; PULSE 60–68; RESP 16–19; TEMP 36.1–36.6; O2SAT 87–96
[2021-06-08] MEDS: Piperacil/Tazobactam 3.375 GM/50 ML ML IV ×4 (01:19→20:12)
[2021-06-08 02:21] LABS: Bedside Glucose 172 mg/dL (70-110)
[2021-06-08] MEDS: Propofol 10MG/Ml 1,000 MG/100 ML Bottle 27.4 MG CONT INF ×2 (03:33→07:12)
[2021-06-08 04:25] LABS: Absolute Lymphocyte Count 0.67 X10^3/uL (0.83-4.51); Absolute Neutrophil Count 6.9 X10^3/uL (2.0-7.7); Basophil# 0.01 X10^3/uL; Basophil% 0.1 % (0-1); Eosinophil# 0.05 X10^3/uL; Eosinophils% 0.6 % (0-5); Hematocrit 38.1 % (40-54); Hemoglobin 11.8 g/dL (13.0-16.5); Lymphocyte # 0.67 X10^3/ul (0.83-4.51); Lymphocyte % 8.2 % (19-41); Mean Corpuscular Hgb 28.9 pg (27.0-32.0); Mean Corpuscular Volume 93.2 fL (80-94); Mean Platelet Vol. 10.6 fl (6.2-12.0); Monocyte# 0.48 X10^3/uL; Monocyte% 5.9 % (0-10); NRBC Flagged by Analyzer 0 % (0-5); Neutrophil # 6.92 X10^3/uL (2.7-7.7); Neutrophil % 84.7 % (47-70); Platelet Count 297 K/mm3 (150-450); RBC Distribution Width CV 14.8 % (11.6-14.6); RBC Distribution Width SD 51.1 fl (35.1-43.9); Red Blood Count 4.09 M/mm3 (4.6-6.2); White Blood Count 8.2 K/mm3 (4.4-11.0)
[2021-06-08 04:43] LABS: ALB/GLOB Ratio 0.5 RATIO (0.9-2.4); AST(SGOT) 32 U/L (15-37); Alanine Aminotransfer ALT/SGPT 37 U/L (16-61); Albumin, Serum 2.1 g/dL (3.2-5.0); Alkaline Phosphatase 71 U/L (45-117); Anion Gap 6 (5-15); BUN 67 mg/dL (7-18); BUN/Creat Ratio 46.9 RATIO (10-20); Calcium,Total 8.5 mg/dL (8.5-10.1); Chloride 109 mmol/L (98-107); Creatinine, Serum 1.43 mg/dL (0.70-1.30); EST Glomerular Filtration Rate 51 mL/min (>60); Est Glom Filt Rate - Afr Amer 62 mL/min (>60); Estimated Creatinine Clearance 42.52 ml/min; Globulin 4.3 g/dL (2.2-4.2); Glucose 152 mg/dL (74-106); Potassium 4.2 mmol/L (3.5-5.1); Protein, Total 6.4 g/dL (6.4-8.2); Sodium Level 142 mmol/L (136-145)
[2021-06-08 05:26] LABS: CPK Total, Creatine Kinase 54 U/L (39-308); Triglycerides 358 mg/dL
--- NOTE | 2021-06-08 06:40 | PN.CC_ITS ---
Assessment & Plan Assessment/Plan (1) Acute respiratory failure with hypoxemia: (2) Pneumonia due to 2019 novel coronavirus: PLAN: RECOMMENDATIONS: 1. Continue patient on assist control mode of mechanical ventilation. Wean FiO2/PEEP to maintain saturations at or above 90%. 2. Continue empiric antimicrobials as ordered. 3. Continue Decadron and baricitinib. 4. Continue tube feeds as tolerated. 5. Continue appropriate prophylaxis. IMPRESSIONS: 1. Acute hypoxemic respiratory failure secondary to COVID-19 pneumonia The patient presented to the hospital with progressive symptoms within 10 days of onset. He is unvaccinated at baseline. Unfortunately, the patient's oxygenation status continues to worsen. The patient failed to respond to noninvasive positive pressure ventilatory support and ultimately was intubated on June 06. He will be continued on empiric antimicrobials along with Decadron and baricitinib. The patient has completed a treatment course of remdesivir. Continue Lovenox as ordered. Diuretic therapy, as needed, can be utilized to maintain euvolemic state. Continue tube feeds as tolerated. 2. Acute on chronic kidney disease Likely prerenal in etiology and related to acute presentation. Continue to monitor urine output for now. No current indication for renal replacement therapy. Avoid nephrotoxic medications. 3. Obesity/hypertension/hyperlipidemia Complicates care, management, recovery and prognosis. Continue home medications as indicated. CODE status: Discussed CODE status at length including difference between FULL code, DNR-CCA and DNR-CC status. Following discussions about the differences in these status, patient requested full CODE STATUS. TIME: 31 minutes of critical care time, independent of procedures, was spent addressing the patient's acute hypoxemic respiratory failure secondary to COVID- 19 pneumonia, acute on chronic kidney disease, review of all data and collaboration with care team. Subjective Subjective The patient was seen and examined at the bedside this morning. Events from the last 24 hours have been reviewed. The patient is currently afebrile, hemodynamically stable and maintaining appropriate oxygen saturations on assist control mode of mechanical ventilation with an FiO2 requirement of 50% and PEEP of 10. The patient's respiratory status is slowly improving. He is currently tolerating tube feeds. Nursing staff did report sick secretions from his endotracheal tube. He remains sedated on propofol and fentanyl. He is currently documented to be overall net +4.5 L for the hospitalization. Creatinine has improved to 1.43. Triglycerides are elevated at 358. The patient remains on empiric antimicrobials, Decadron, Lovenox and baricitinib. Objective Data Objective Data The patient's most recent lab work, culture data and imaging studies have all been personally reviewed. Coronavirus PCR was positive on June 03. Respiratory viral panel was negative. Strep and urine Legionella antigens were negative. MRSA screen was negative. Vital Signs: Vital Signs Temp Pulse Resp BP Pulse Ox 97.5 F L 60 16 114/51 L 90 06/08/21 06:00 06/08/21 06:00 06/08/21 06:00 06/08/21 06:00 06/08/21 06:00 Oxygen Flow Rate (L/min) 60 Oxygen Delivery Method Mechanical Ventilator Weight: 91.399 kg Body Mass Index (BMI) 30.1 Intake & Output: Intake and Output for Last 24 Hours 06/06/21 06/07/21 06/08/21 23:59 23:59 23:59 Intake Total 1409.79 / 1429.49 2746.23 / 2865.12 1006.63 / 1006.63 Output Total 1225 / 1225 485 / 485 5 / 5 Balance 184.79 / 204.49 2261.23 / 2380.12 1001.63 / 1001.63 Lab / Micro Data Attestation: I reviewed the patient's lab results. Result Diagrams: 06/08/21 03:55 06/08/21 03:55 Labs: Laboratory Results - last 24 hr 06/07/21 11:36: POC Glucose 138 H 06/07/21 15:00: Urine Color Yellow, Urine Clarity Cloudy, Urine pH 6.0, Ur Specific [place] 1.015, Urine Protein 30 H, Urine Glucose (UA) Normal, Urine Ketones Negative, Urine Occult Blood 250 H, Urine Nitrite Negative, Urine Bilirubin Negative, Urine Urobilinogen Normal, Ur Leukocyte Esterase 25 H, Urine RBC > 100 SEEN, Urine WBC 0-5 SEEN, Ur Squamous Epith Cells 0-5 SEEN, Uric Acid Crystals 1+, Urine Bacteria 0 SEEN, Urine Mucus 0 SEEN 06/07/21 17:36: POC Glucose 172 H 06/07/21 22:13: POC Glucose 172 H 06/08/21 03:55: WBC 8.2, RBC 4.09 L, Hgb 11.8 L, Hct 38.1 L, MCV 93.2, MCH 28.9, MCHC 31.0 L D, RDW Std Deviation 51.1 H, RDW Coeff of Miles 14.8 H, Plt Count 297, MPV 10.6, Immature Gran % (Auto) 0.500, Neut % (Auto) 84.7 H, Lymph % (Auto) 8.2 L, [place] % (Auto) 5.9, Eos % (Auto) 0.6, Baso % (Auto) 0.1, Absolute Neuts (auto) 6.9, Absolute Lymphs (auto) 0.67 L, Nucleated RBC % 0 06/08/21 03:55: Sodium 142, Potassium 4.2, Chloride 109 H, Carbon Dioxide 27.0, Anion Gap 6, BUN 67 H, Creatinine 1.43 H, Estim Creat Clear Calc 42.52, Est GFR (MDRD) Af Amer 62, Est GFR (MDRD) Non-Af 51 L, BUN/Creatinine Ratio 46.9 H, Glucose 152 H, Calcium 8.5, Total Bilirubin 0.50, AST 32, ALT 37, Alkaline Phosphatase 71, Total Protein 6.4, Albumin 2.1 L, Globulin 4.3 H, Albumin/Globulin Ratio 0.5 L 06/08/21 04:30: Total Creatine Kinase 54, Triglycerides 358 H Micro: Microbiology 06/06/21 09:40 Sputum, Induced/Lukens Gram Stain - Final 06/06/21 09:40 Sputum, Induced/Lukens Respiratory Culture - Preliminary Appears to be normal respiratory chaya. Further studies to follow. 06/04/21 18:05 Urine, Clean Catch Legionella Antigen - Final 06/04/21 18:05 Urine, Clean Catch Streptococcus pneumoniae Antigen (M - Final 06/04/21 09:40 Interface Orders Respiratory Panel (PCR) - Final Physical Exam Const alert and no apparent distress General Appearance: intubated and patient mechanically ventilated Nutritional Appearance: obese HEENT normocephalic and head/scalp atraumatic Mouth: endotracheal tube in place and OG tube in place Eyes PERRL, EOMs intact bilaterally and conjunctivae normal Neck supple General: trachea midline Chest inspection of chest normal Resp Auscultation: diminished lung sounds; Negative for rales, rhonchi or wheezes Cardio regular rate and regular rhythm GI normal to inspection, nondistended, normoactive bowel sounds Extremity no clubbing, cyanosis or edema Skin no rashes or lesions noted Neuro moves all extremities and no focal motor deficits Psych cooperative Charges/Coding Procedures Hospitalists Procedures: [id number] Critial Care 1st Hr
--- NOTE | 2021-06-08 07:21 | PCM.PN.HOSP ---
Subjective Subjective Patient seen remains in ICU on the vent. He apparently desaturated this a.m. and had to be suctioned aggressively with copious amount of secretions found. Sputum cultures obtained on 06/06/2021 so far negative to date Objective Data Objective Data Vital Signs: Vital Signs Temp Pulse Resp BP Pulse Ox 97.4 F L 60 16 121/48 H 90 06/08/21 07:00 06/08/21 07:05 06/08/21 07:05 06/08/21 07:00 06/08/21 07:05 Oxygen Flow Rate (L/min) 60 Oxygen Delivery Method Mechanical Ventilator Weight: 91.399 kg Body Mass Index (BMI) 30.1 Intake & Output: Intake and Output for Last 24 Hours 06/06/21 06/07/21 06/08/21 23:59 23:59 23:59 Intake Total 1409.79 / 1429.49 2746.23 / 2865.12 1052.00 / 1052.00 Output Total 1225 / 1225 485 / 485 5 / 5 Balance 184.79 / 204.49 2261.23 / 2380.12 1047.00 / 1047.00 Lab / Micro Data Result Diagrams: 06/08/21 03:55 06/08/21 03:55 Labs: Laboratory Results - last 24 hr 06/07/21 11:36: POC Glucose 138 H 06/07/21 15:00: Urine Color Yellow, Urine Clarity Cloudy, Urine pH 6.0, Ur Specific [place] 1.015, Urine Protein 30 H, Urine Glucose (UA) Normal, Urine Ketones Negative, Urine Occult Blood 250 H, Urine Nitrite Negative, Urine Bilirubin Negative, Urine Urobilinogen Normal, Ur Leukocyte Esterase 25 H, Urine RBC > 100 SEEN, Urine WBC 0-5 SEEN, Ur Squamous Epith Cells 0-5 SEEN, Uric Acid Crystals 1+, Urine Bacteria 0 SEEN, Urine Mucus 0 SEEN 06/07/21 17:36: POC Glucose 172 H 06/07/21 22:13: POC Glucose 172 H 06/08/21 03:55: WBC 8.2, RBC 4.09 L, Hgb 11.8 L, Hct 38.1 L, MCV 93.2, MCH 28.9, MCHC 31.0 L D, RDW Std Deviation 51.1 H, RDW Coeff of Miles 14.8 H, Plt Count 297, MPV 10.6, Immature Gran % (Auto) 0.500, Neut % (Auto) 84.7 H, Lymph % (Auto) 8.2 L, [place] % (Auto) 5.9, Eos % (Auto) 0.6, Baso % (Auto) 0.1, Absolute Neuts (auto) 6.9, Absolute Lymphs (auto) 0.67 L, Nucleated RBC % 0 06/08/21 03:55: Sodium 142, Potassium 4.2, Chloride 109 H, Carbon Dioxide 27.0, Anion Gap 6, BUN 67 H, Creatinine 1.43 H, Estim Creat Clear Calc 42.52, Est GFR (MDRD) Af Amer 62, Est GFR (MDRD) Non-Af 51 L, BUN/Creatinine Ratio 46.9 H, Glucose 152 H, Calcium 8.5, Total Bilirubin 0.50, AST 32, ALT 37, Alkaline Phosphatase 71, Total Protein 6.4, Albumin 2.1 L, Globulin 4.3 H, Albumin/Globulin Ratio 0.5 L 06/08/21 04:30: Total Creatine Kinase 54, Triglycerides 358 H Micro: Microbiology 06/06/21 09:40 Sputum, Induced/Lukens Gram Stain - Final 06/06/21 09:40 Sputum, Induced/Lukens Respiratory Culture - Preliminary Appears to be normal respiratory chaya. Further studies to follow. 06/04/21 18:05 Urine, Clean Catch Legionella Antigen - Final 06/04/21 18:05 Urine, Clean Catch Streptococcus pneumoniae Antigen (M - Final 06/04/21 09:40 Interface Orders Respiratory Panel (PCR) - Final Physical Exam Narrative GENERAL: Patient on the vent HEENT: Atraumatic; EYES; Anicteric, Normal Conjunctiva NECK; supple, normal thyroid, RESPIRATORY: Diminished to auscultation CARDIOVASCULAR: Regular S1 S2, GI: soft, normoactive bowel sounds, : No Renal angle tenderness; EXTREMITIES: No edema, no clubbing, MUSCULOSKELETAL: no muscle waisting NEURO: Patient on the vent SKIN: No Rash PSYCH; on the vent Assessment & Plan Assessment/Plan (1) Acute respiratory failure with hypoxemia: (2) Pneumonia due to 2019 novel coronavirus: (3) Prediabetes: PLAN: Patient is a 76-year-old gentleman unvaccinated against COVID-19 presented with progressive shortness of breath and assessment of acute hypoxic respiratory failure made admitted to the intensive care unit where patient is currently being managed 1. Acute hypoxic respiratory failure ?Secondary to SARS-CoV-2 pneumonia. Patient was placed on noninvasive ventilation BiPAP due to worsening respiratory status. Treatment initiated with Decadron remdesivir as well as baricitinib -06/07/2021; was intubated in view of progressive respiratory failure the day prior. ?06/08/2021;Patient seen remains in ICU on the vent. He apparently desaturated this a.m. and had to be suctioned aggressively with copious amount of secretions found. Sputum cultures obtained on 06/06/2021 so far negative to date 2. Acute kidney injury ?Superimposed on chronic kidney disease stage IIIa. Baseline creatinine 1.49. Patient kidney function is worsening with BUN of 63 and creatinine of 2.04. Consult placed to nephrology 3. Hypokalemia corrected per protocol 4. Elevated troponin ?Secondary to NSTEMI type II as a result of demand ischemia as a result of 1 5. Hypertension - Blood pressure controlled, home medications continued with dose adjustment as needed 6. Dyslipidemia -Patient is on statin therapy, continued at home dose 7. 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 History of paroxysmal A. fib ?Rate controlled on beta-blockers on systemic anticoagulation with dabigatran 9. DVT prophylaxis ?Patient is on dabigatran did continue 10. Hematuria patient has a Chan catheter in place we will continue to observe and if this persists we will hold patient's dabigatran Charges/Coding Visit Charges Inpatient E&M: 02031 [facility] Hosp L3
[2021-06-08 07:50] LABS: Bedside Glucose 125 mg/dL (70-110)
[2021-06-08] MEDS: Chlorhexidine 15 ML PO ×2 (08:12→20:37)
[2021-06-08] MEDS: Enoxaparin 100 MG/ML Syringe 90 MG SC ×2 (08:12→20:37)
[2021-06-08] MEDS: CHLORHEXIDINE GLUC 2% CLOTH 1 EACH TOWELETTE TOPICAL (08:12)
[2021-06-08] MEDS: dexAMETHasone 10 MG/ML Vial 6 MG IV (08:12)
[2021-06-08] MEDS: Ascorbic Acid 500 MG Tablet PO (08:13)
[2021-06-08] MEDS: Senna/Docusate Sodium 1 Tablet 2 TABLET PO (08:13)
--- NOTE | 2021-06-08 09:07 | NURSING ---
Temperature vincent catheter leaking, bed saturated throughout nightshift and this AM, irrigated vincent with no results, vnicent removed with large amt of sediment coated on the catheter tip, patient urinated small amount at this time. New catheter placed with bright red urine in return.
[2021-06-08] MEDS: TITRATION PARAMETER CHANGE 1 EACH IV (09:32)
[2021-06-08] MEDS: Propofol 10MG/Ml 1,000 MG/100 ML Bottle 27.3 MG CONT INF ×4 (10:59→22:11)
[2021-06-08] MEDS: Insulin Lispro 100 UNIT/ML INSULN.PEN SC ×2 (11:11→16:16)
[2021-06-08] MEDS: Polyethylene Glycol 3350 17 GM PACKET GT (11:11)
--- NOTE | 2021-06-08 11:36 | PCM.PN.REN ---
Subjective Subjective Intubated. BUN and creatinine slightly better. Objective Data Objective Data Vital Signs: Vital Signs Temp Pulse Resp BP Pulse Ox 97.6 F L 60 16 108/56 L 92 06/08/21 11:00 06/08/21 11:00 06/08/21 11:00 06/08/21 11:00 06/08/21 11:00 Oxygen Flow Rate (L/min) 60 Oxygen Delivery Method Mechanical Ventilator Weight: 91.081 kg Body Mass Index (BMI) 30.1 Intake & Output: Intake and Output for Last 24 Hours 06/06/21 06/07/21 06/08/21 23:59 23:59 23:59 Intake Total 1409.79 / 1429.49 2746.23 / 2865.12 1761.21 / 1761.21 Output Total 1225 / 1225 485 / 485 45 / 45 Balance 184.79 / 204.49 2261.23 / 2380.12 1716.21 / 1716.21 Lab / Micro Data Result Diagrams: 06/08/21 03:55 06/08/21 03:55 Labs: Laboratory Results - last 24 hr 06/07/21 11:36: POC Glucose 138 H 06/07/21 15:00: Urine Color Yellow, Urine Clarity Cloudy, Urine pH 6.0, Ur Specific [place] 1.015, Urine Protein 30 H, Urine Glucose (UA) Normal, Urine Ketones Negative, Urine Occult Blood 250 H, Urine Nitrite Negative, Urine Bilirubin Negative, Urine Urobilinogen Normal, Ur Leukocyte Esterase 25 H, Urine RBC > 100 SEEN, Urine WBC 0-5 SEEN, Ur Squamous Epith Cells 0-5 SEEN, Uric Acid Crystals 1+, Urine Bacteria 0 SEEN, Urine Mucus 0 SEEN 06/07/21 17:36: POC Glucose 172 H 06/07/21 22:13: POC Glucose 172 H 06/08/21 03:55: WBC 8.2, RBC 4.09 L, Hgb 11.8 L, Hct 38.1 L, MCV 93.2, MCH 28.9, MCHC 31.0 L D, RDW Std Deviation 51.1 H, RDW Coeff of Miles 14.8 H, Plt Count 297, MPV 10.6, Immature Gran % (Auto) 0.500, Neut % (Auto) 84.7 H, Lymph % (Auto) 8.2 L, [place] % (Auto) 5.9, Eos % (Auto) 0.6, Baso % (Auto) 0.1, Absolute Neuts (auto) 6.9, Absolute Lymphs (auto) 0.67 L, Nucleated RBC % 0 06/08/21 03:55: Sodium 142, Potassium 4.2, Chloride 109 H, Carbon Dioxide 27.0, Anion Gap 6, BUN 67 H, Creatinine 1.43 H, Estim Creat Clear Calc 42.52, Est GFR (MDRD) Af Amer 62, Est GFR (MDRD) Non-Af 51 L, BUN/Creatinine Ratio 46.9 H, Glucose 152 H, Calcium 8.5, Total Bilirubin 0.50, AST 32, ALT 37, Alkaline Phosphatase 71, Total Protein 6.4, Albumin 2.1 L, Globulin 4.3 H, Albumin/Globulin Ratio 0.5 L 06/08/21 04:30: Total Creatine Kinase 54, Triglycerides 358 H 06/08/21 05:48: POC Glucose 125 H Micro: Microbiology 06/05/21 13:15 Blood Culture (Wb) - Anticubital Left Blood Culture - Preliminary No growth in 48 hours. 06/06/21 09:40 Sputum, Induced/Lukens Gram Stain - Final 06/06/21 09:40 Sputum, Induced/Lukens Respiratory Culture - Final 06/04/21 18:05 Urine, Clean Catch Legionella Antigen - Final 06/04/21 18:05 Urine, Clean Catch Streptococcus pneumoniae Antigen (M - Final 06/04/21 09:40 Interface Orders Respiratory Panel (PCR) - Final Physical Exam Narrative Exam minimized due to Covid Assessment & Plan Assessment/Plan (1) DAVID (acute kidney injury): PLAN: Acute renal failure, in the setting of Covid pneumonia. BUN and creatinine are better today. Electrolytes are acceptable. ? Urine output. No acute indications for dialysis. Chart reviewed
--- NOTE | 2021-06-08 15:27 | CASEMGMT ---
RN CM Assessment Patient on vent with Covid. Called patient listed dtr Susie Velásquez and introduced role of RN CM.?Agrees to complete RNCM IA via phone.?Care providers, pharmacy, and demographics verified verified to the best of her knowledge. Susie is not patient blood dtr. Susie's mother was with patient for over 13years before she from cancer and patient is known father to Susie and grandfather to her children. Susie lives less than 5 minutes away from patient. Per Susie, patient has two brothers and one sister. NOK and HPOA would be patient brother Ge Preston that lives in [place] and [facility] does not have his number off hand. [facility] patient's niece Kathi would most likely have it. This copywriter s/w primary nurse whom s/w niece Kathi and states per Kathi she would have to look for it and nurse notified Kathi that either RNCM or SW would contact her. This copywriter attempted to contact Kathi and directly went to . RNCM will have to F/u for number of brothdomonique [place] and follow for DC Goal/DC planning. Patient was supposed to be in [place] as he lives there in the winter and in [place] in the summer. [facility] patient is private about his health care. Was Covid tested with rapid testing at home x2 weeks ago and at [facility] on Sunday. Admit Dx: Severe Acute Respiratory Syndrome s/t Covid. Re-Admit: No Barriers/Issues: Patient lives alone, per Dtr Susie patient is kind of a hoarder and patient home would have to be revamped by family prior to patient returning home if that was the DC plan. PCP: Has two PCP (one in [place] and One in [place]) but does not know name. Specialists: Onc- thinks through [place]- has h/o Pancreatic [place]. Preferred Pharmacy: [facility] Insurance: [facility], [facility] A/B Rx Benefit:?[place]. Does not believe patient has Mcr part D or supplement for medications. LNOK: Brother Ge Preston in [place]. Need to f/u on his number. LW/HPOA: None on file. Living Arrangements:?Lives alone in a 2SH, bedroom on 2nd fl with approx 12 steps. Can set up on first fl if needed. 2 curved slab steps to enter home. ADL?s: Independent with ambulation and ADLs Transportation: Patient drives DME: None HHC: None SNF: None Goal: TBD DC PLAN: TBD. Chuy Boone RNCM
[2021-06-08] MEDS: Vital AF 1.2 Cal Liquid 1,000 ML 60 ML GT (16:15)
[2021-06-08] MEDS: Atorvastatin Calcium 40 MG Tablet PO (20:37)
[2021-06-08] MEDS: Senna/Docusate Sodium 1 Tablet 2 TABLET GT (20:37)
[2021-06-09] VITALS (34 sets, daily range): BP systolic 98–133; BP diastolic 51–82; PULSE 60–72; RESP 15–20; TEMP 36.3–36.9; O2SAT 88–97
[2021-06-09 00:05] LABS: Bedside Glucose 155 mg/dL (70-110)
[2021-06-09] MEDS: Propofol 10MG/Ml 1,000 MG/100 ML Bottle 27.3 MG CONT INF ×3 (02:08→09:02)
[2021-06-09 02:26] LABS: Bedside Glucose 140 mg/dL (70-110)
[2021-06-09 02:31] LABS: Bedside Glucose 167 mg/dL (70-110)
[2021-06-09 04:19] LABS: Absolute Lymphocyte Count 0.55 X10^3/uL (0.83-4.51); Absolute Neutrophil Count 4.8 X10^3/uL (2.0-7.7); Eosinophil# 0.17 X10^3/uL; Eosinophils% 2.9 % (0-5); Hemoglobin 11.2 g/dL (13.0-16.5); Lymphocyte # 0.55 X10^3/ul (0.83-4.51); Lymphocyte % 9.3 % (19-41); Mean Corp Hgb Conc 31.1 g/dL (32-36); Mean Corpuscular Hgb 29.3 pg (27.0-32.0); Mean Corpuscular Volume 94.2 fL (80-94); Mean Platelet Vol. 10.6 fl (6.2-12.0); Monocyte# 0.32 X10^3/uL; Monocyte% 5.4 % (0-10); NRBC Flagged by Analyzer 0 % (0-5); Neutrophil % 81.4 % (47-70); POSITIVE DIFFERENTIAL YES; Platelet Count 281 K/mm3 (150-450); RBC Distribution Width CV 14.7 % (11.6-14.6); RBC Distribution Width SD 51.5 fl (35.1-43.9); Red Blood Count 3.82 M/mm3 (4.6-6.2); White Blood Count 5.9 K/mm3 (4.4-11.0)
[2021-06-09 04:31] LABS: ALB/GLOB Ratio 0.5 RATIO (0.9-2.4); AST(SGOT) 29 U/L (15-37); Alanine Aminotransfer ALT/SGPT 36 U/L (16-61); Albumin, Serum 1.9 g/dL (3.2-5.0); Alkaline Phosphatase 64 U/L (45-117); Anion Gap 5 (5-15); BUN 48 mg/dL (7-18); BUN/Creat Ratio 43.6 RATIO (10-20); Chloride 108 mmol/L (98-107); Differential Indicated SCAN CRITERIA MET; EST Glomerular Filtration Rate 69 mL/min (>60); Est Glom Filt Rate - Afr Amer 84 mL/min (>60); Estimated Creatinine Clearance 55.27 ml/min; Globulin 4.1 g/dL (2.2-4.2); Glucose 152 mg/dL (74-106); Potassium 4.1 mmol/L (3.5-5.1); Sodium Level 140 mmol/L (136-145)
[2021-06-09 04:40] LABS: Anisocytosis 1+
[2021-06-09] MEDS: Insulin Lispro 100 UNIT/ML INSULN.PEN SC ×3 (05:28→16:53)
[2021-06-09] MEDS: Piperacil/Tazobactam 3.375 GM/50 ML ML IV (05:36)
--- NOTE | 2021-06-09 06:10 | NURSING ---
0456: Pt desat to 64% while turned to side during bath. Pt slow to recover to mid-high 80's O2 sats, large amt thick white secretions suctioned from ETT, FiO2 increased to 80%. Pt appears uncomfortable, biting ETT, restless, grimacing; sedation increased, see MAR.
--- NOTE | 2021-06-09 06:36 | PN.CC_ITS ---
Assessment & Plan Assessment/Plan (1) Acute respiratory failure with hypoxemia: (2) Pneumonia due to 2019 novel coronavirus: PLAN: RECOMMENDATIONS: 1. Continue patient on assist control mode of mechanical ventilation. Wean FiO2/PEEP to maintain saturations at or above 90%. 2. Continue empiric antimicrobials as ordered. 3. Continue Decadron and baricitinib. 4. Continue tube feeds as tolerated. 5. Continue appropriate prophylaxis. 6. Start scheduled IV Lasix. IMPRESSIONS: 1. Acute hypoxemic respiratory failure secondary to COVID-19 pneumonia The patient presented to the hospital with progressive symptoms within 10 days of onset. He is unvaccinated at baseline. Unfortunately, the patient's oxygenation status continues to worsen. The patient failed to respond to noninvasive positive pressure ventilatory support and ultimately was intubated on June 06. He will be continued on empiric antimicrobials along with Decad alondra and baricitinib. The patient has completed a treatment course of remdesivir. Continue Lovenox as ordered. Diuretic therapy, as needed, can be utilized to maintain euvolemic state. Continue tube feeds as tolerated. 2. Acute on chronic kidney disease Likely prerenal in etiology and related to acute presentation. Continue to monitor urine output for now. No current indication for renal replacement therapy. Avoid nephrotoxic medications. 3. Obesity/hypertension/hyperlipidemia Complicates care, management, recovery and prognosis. Continue home medications as indicated. CODE status: Discussed CODE status at length including difference between FULL code, DNR-CCA and DNR-CC status. Following discussions about the differences in these status, patient requested full CODE STATUS. TIME: 31 minutes of critical care time, independent of procedures, was spent addressing the patient's acute hypoxemic respiratory failure secondary to COVID- 19 pneumonia, acute on chronic kidney disease, review of all data and collaboration with care team. Subjective Subjective The patient was seen and examined at the bedside this morning. Events from the last 24 hours have been reviewed. The patient is currently afebrile, hemodynamically stable and maintaining appropriate oxygen saturations on assist control mode of mechanical ventilation with an FiO2 requirement of 80% and PEEP of 10. He is currently tolerating tube feeds. The patient continues to desaturate with any form of movement. He continues to have thick endotracheal tube secretions. He is currently documented to be overall net +5.7 L for the hospitalization. Liver and renal function are stable. The patient remains on empiric antimicrobials, Decadron, Lovenox and baricitinib. Objective Data Objective Data The patient's most recent lab work, culture data and imaging studies have all been personally reviewed. Coronavirus PCR was positive on June 03. Respiratory viral panel was negative. Strep and urine Legionella antigens were negative. MRSA screen was negative. Vital Signs: Vital Signs Temp Pulse Resp BP Pulse Ox 98 F 60 18 116/53 L 92 06/09/21 04:00 06/09/21 06:00 06/09/21 06:00 06/09/21 06:00 06/09/21 06:00 Oxygen Flow Rate (L/min) 60 Oxygen Delivery Method Mechanical Ventilator Weight: 91.58 kg Body Mass Index (BMI) 30.1 Intake & Output: Intake and Output for Last 24 Hours 06/07/21 06/08/21 06/09/21 23:59 23:59 23:59 Intake Total 2746.23 / 2865.12 3131.26 / 3276.06 558.23 / 558.23 Output Total 485 / 485 685 / 1210 775 / 775 Balance 2261.23 / 2380.12 2446.26 / 2066.06 -216.77 / -216.77 Lab / Micro Data Attestation: I reviewed the patient's lab results. Result Diagrams: 06/09/21 04:00 06/09/21 04:00 Labs: Laboratory Results - last 24 hr 06/08/21 05:48: POC Glucose 125 H 06/08/21 11:10: POC Glucose 155 H 06/08/21 16:13: POC Glucose 167 H 06/09/21 00:06: POC Glucose 140 H 06/09/21 04:00: WBC 5.9, RBC 3.82 L, Hgb 11.2 L, Hct 36.0 L, MCV 94.2 H, MCH 29.3, MCHC 31.1 L, RDW Std Deviation 51.5 H, RDW Coeff of [place] 14.7 H, Plt Count 281, MPV 10.6, Immature Gran % (Auto) 1.000 H, Neut % (Auto) 81.4 H, Lymph % (Auto) 9.3 L, [place] % (Auto) 5.4, Eos % (Auto) 2.9, Baso % (Auto) 0.0, Absolute Neuts (auto) 4.8, Absolute Lymphs (auto) 0.55 L, Nucleated RBC % 0, Anisocytosis 1+ 06/09/21 04:00: Sodium 140, Potassium 4.1, Chloride 108 H, Carbon Dioxide 27.0, Anion Gap 5, BUN 48 H, Creatinine 1.10, Estim Creat Clear Calc 55.27, Est GFR (MDRD) Af Amer 84, Est GFR (MDRD) Non-Af 69, BUN/Creatinine Ratio 43.6 H, Glucose 152 H, Calcium 8.0 L, Total Bilirubin 0.50, AST 29, ALT 36, Alkaline Phosphatase 64, Total Protein 6.0 L, Albumin 1.9 L, Globulin 4.1, Albumin/Globulin Ratio 0.5 L Micro: Microbiology 06/08/21 10:05 Sputum, Induced/Lukens Gram Stain - Final 06/05/21 13:15 Blood Culture (Wb) - Anticubital Left Blood Culture - Preliminary No growth in 48 hours. 06/06/21 09:40 Sputum, Induced/Lukens Gram Stain - Final 06/06/21 09:40 Sputum, Induced/Lukens Respiratory Culture - Final 06/04/21 18:05 Urine, Clean Catch Legionella Antigen - Final 06/04/21 18:05 Urine, Clean Catch Streptococcus pneumoniae Antigen (M - Final 06/04/21 09:40 Interface Orders Respiratory Panel (PCR) - Final Physical Exam Const no apparent distress General Appearance: intubated and patient mechanically ventilated Nutritional Appearance: obese HEENT normocephalic and head/scalp atraumatic Mouth: endotracheal tube in place and OG tube in place Eyes PERRL, EOMs intact bilaterally and conjunctivae normal Neck supple General: trachea midline Chest inspection of chest normal Resp Auscultation: rhonchi and diminished lung sounds; Negative for rales or wheezes Cardio regular rate and regular rhythm GI normal to inspection, nondistended, normoactive bowel sounds Extremity no clubbing, cyanosis or edema Skin no rashes or lesions noted Neuro Sensorium / Orientation: sedated on vent Charges/Coding Procedures Hospitalists Procedures: 42135 Critial Care 1st Hr
[2021-06-09] MEDS: CHLORHEXIDINE GLUC 2% CLOTH 1 EACH TOWELETTE TOPICAL (07:49)
[2021-06-09] MEDS: Chlorhexidine 15 ML PO ×2 (07:49→20:13)
[2021-06-09] MEDS: Ascorbic Acid 500 MG Tablet PO (07:50)
[2021-06-09] MEDS: dexAMETHasone 10 MG/ML Vial 6 MG IV (07:50)
[2021-06-09] MEDS: Furosemide 40 MG/4 ML Vial IV ×2 (07:50→16:51)
[2021-06-09] MEDS: Enoxaparin 100 MG/ML Syringe 90 MG SC ×2 (07:50→20:13)
[2021-06-09] MEDS: 0.9% Saline Lock 10 ML Syringe IV (07:51)
--- NOTE | 2021-06-09 08:12 | PN.HOSP_ITS ---
Subjective Subjective Patient seen remains on the vent with copious thick secretions being suctioned out of the ET tube. His kidney function appears to be back to baseline Objective Data Objective Data Vital Signs: Vital Signs Temp Pulse Resp BP Pulse Ox 98.4 F 60 16 113/55 L 95 06/09/21 08:00 06/09/21 08:00 06/09/21 08:00 06/09/21 08:00 06/09/21 08:00 Oxygen Flow Rate (L/min) 60 Oxygen Delivery Method Mechanical Ventilator Weight: 91.58 kg Body Mass Index (BMI) 30.1 Intake & Output: Intake and Output for Last 24 Hours 06/07/21 06/08/21 06/09/21 23:59 23:59 23:59 Intake Total 2746.23 / 2865.12 3131.26 / 3276.06 1587.74 / 1587.74 Output Total 485 / 485 685 / 1210 925 / 925 Balance 2261.23 / 2380.12 2446.26 / 2066.06 662.74 / 662.74 Lab / Micro Data Result Diagrams: 06/09/21 04:00 06/09/21 04:00 Labs: Laboratory Results - last 24 hr 06/08/21 11:10: POC Glucose 155 H 06/08/21 16:13: POC Glucose 167 H 06/09/21 00:06: POC Glucose 140 H 06/09/21 04:00: WBC 5.9, RBC 3.82 L, Hgb 11.2 L, Hct 36.0 L, MCV 94.2 H, MCH 29.3, MCHC 31.1 L, RDW Std Deviation 51.5 H, RDW Coeff of [place] 14.7 H, Plt Count 281, MPV 10.6, Immature Gran % (Auto) 1.000 H, Neut % (Auto) 81.4 H, Lymph % (Auto) 9.3 L, [place] % (Auto) 5.4, Eos % (Auto) 2.9, Baso % (Auto) 0.0, Absolute Neuts (auto) 4.8, Absolute Lymphs (auto) 0.55 L, Nucleated RBC % 0, Anisocytosis 1+ 06/09/21 04:00: Sodium 140, Potassium 4.1, Chloride 108 H, Carbon Dioxide 27.0, Anion Gap 5, BUN 48 H, Creatinine 1.10, Estim Creat Clear Calc 55.27, Est GFR (MDRD) Af Amer 84, Est GFR (MDRD) Non-Af 69, BUN/Creatinine Ratio 43.6 H, Glucose 152 H, Calcium 8.0 L, Total Bilirubin 0.50, AST 29, ALT 36, Alkaline Phosphatase 64, Total Protein 6.0 L, Albumin 1.9 L, Globulin 4.1, Albumin/Globulin Ratio 0.5 L Micro: Microbiology 06/08/21 10:05 Sputum, Induced/Lukens Gram Stain - Final 06/05/21 13:15 Blood Culture (Wb) - Anticubital Left Blood Culture - Preliminary No growth in 48 hours. 06/06/21 09:40 Sputum, Induced/Lukens Gram Stain - Final 06/06/21 09:40 Sputum, Induced/Lukens Respiratory Culture - Final 06/04/21 18:05 Urine, Clean Catch Legionella Antigen - Final 06/04/21 18:05 Urine, Clean Catch Streptococcus pneumoniae Antigen (M - Final 06/04/21 09:40 Interface Orders Respiratory Panel (PCR) - Final Physical Exam Narrative GENERAL: Patient on the vent HEENT: Atraumatic; EYES; Anicteric, Normal Conjunctiva NECK; supple, normal thyroid, RESPIRATORY: Diminished to auscultation CARDIOVASCULAR: Regular S1 S2, GI: soft, normoactive bowel sounds, : No Renal angle tenderness; EXTREMITIES: No edema, no clubbing, MUSCULOSKELETAL: no muscle waisting NEURO: Patient on the vent SKIN: No Rash PSYCH; on the vent Assessment & Plan Assessment/Plan (1) Acute respiratory failure with hypoxemia: (2) Pneumonia due to 2019 novel coronavirus: (3) Prediabetes: PLAN: Patient is a 76-year-old gentleman unvaccinated against COVID-19 presented with progressive shortness of breath and assessment of acute hypoxic respiratory failure made admitted to the intensive care unit where patient is currently being managed 1. Acute hypoxic respiratory failure ?Secondary to SARS-CoV-2 pneumonia. Patient was placed on noninvasive ventilation BiPAP due to worsening respiratory status. Treatment initiated with Decadron remdesivir as well as baricitinib -06/07/2021; was intubated in view of progressive respiratory failure the day prior. ?06/08/2021;Patient seen remains in ICU on the vent. He apparently desaturated this a.m. and had to be suctioned aggressively with copious amount of secretions found. Sputum cultures obtained on 06/06/2021 so far negative to date -06/19/2021; Patient seen remains on the vent with copious thick secretions being suctioned out of the ET tube. His kidney function appears to be back to baseline 2. Acute kidney injury ?Superimposed on chronic kidney disease stage IIIa. Baseline creatinine 1.49. Patient kidney function is worsening with BUN of 63 and creatinine of 2.04. Consult placed to nephrology -06/09/2021; kidney function back to baseline with creatinine of 1.10 3. Hypokalemia corrected per protocol 4. Elevated troponin ?Secondary to NSTEMI type II as a result of demand ischemia as a result of 1 5. Hypertension - Blood pressure controlled, home medications continued with dose adjustment as needed 6. Dyslipidemia -Patient is on statin therapy, continued at home dose 7. 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 History of paroxysmal A. fib ?Rate controlled on beta-blockers on systemic anticoagulation with dabigatran 9. DVT prophylaxis ?Patient is on dabigatran did continue 10. Hematuria patient has a Chan catheter in place we will continue to observe and if this persists we will hold patient's dabigatran -06/09/2021. No more hematuria via Chan catheter Charges/Coding Visit Charges Inpatient E&M: 74274 [facility] [place] [facility] L3
[2021-06-09] MEDS: TITRATION PARAMETER CHANGE 1 EACH IV (09:23)
[2021-06-09 12:41] LABS: Bedside Glucose 193 mg/dL (70-110)
[2021-06-09] MEDS: Propofol 10MG/Ml 1,000 MG/100 ML Bottle 27.5 MG CONT INF ×4 (12:46→23:31)
--- NOTE | 2021-06-09 14:16 | PN.RENAL_ITS ---
Subjective Subjective no new events Objective Data Objective Data Vital Signs: Vital Signs Temp Pulse Resp BP Pulse Ox 97.6 F L 60 16 99/52 L 95 06/09/21 14:00 06/09/21 14:00 06/09/21 14:00 06/09/21 14:00 06/09/21 14:00 Oxygen Flow Rate (L/min) 60 Oxygen Delivery Method Mechanical Ventilator Weight: 91.58 kg Body Mass Index (BMI) 30.1 Intake & Output: Intake and Output for Last 24 Hours 06/07/21 06/08/21 06/09/21 23:59 23:59 23:59 Intake Total 2746.23 / 2865.12 3131.26 / 3276.06 2070.46 / 2070.46 Output Total 485 / 485 685 / 1210 2625 / 2625 Balance 2261.23 / 2380.12 2446.26 / 2066.06 -554.54 / -554.54 Lab / Micro Data Result Diagrams: 06/09/21 04:00 06/09/21 04:00 Labs: Laboratory Results - last 24 hr 06/08/21 11:10: POC Glucose 155 H 06/08/21 16:13: POC Glucose 167 H 06/09/21 00:06: POC Glucose 140 H 06/09/21 04:00: WBC 5.9, RBC 3.82 L, Hgb 11.2 L, Hct 36.0 L, MCV 94.2 H, MCH 29. 3, MCHC 31.1 L, RDW Std Deviation 51.5 H, RDW Coeff of Miles 14.7 H, Plt Count 281, MPV 10.6, Immature Gran % (Auto) 1.000 H, Neut % (Auto) 81.4 H, Lymph % (Auto) 9.3 L, [place] % (Auto) 5.4, Eos % (Auto) 2.9, Baso % (Auto) 0.0, Absolute Neuts (auto) 4.8, Absolute Lymphs (auto) 0.55 L, Nucleated RBC % 0, Anisocytosis 1+ 06/09/21 04:00: Sodium 140, Potassium 4.1, Chloride 108 H, Carbon Dioxide 27.0, Anion Gap 5, BUN 48 H, Creatinine 1.10, Estim Creat Clear Calc 55.27, Est GFR (MDRD) Af Amer 84, Est GFR (MDRD) Non-Af 69, BUN/Creatinine Ratio 43.6 H, Glucose 152 H, Calcium 8.0 L, Total Bilirubin 0.50, AST 29, ALT 36, Alkaline Phosphatase 64, Total Protein 6.0 L, Albumin 1.9 L, Globulin 4.1, Albumin/Globulin Ratio 0.5 L 06/09/21 10:58: POC Glucose 193 H Micro: Microbiology 06/08/21 10:05 Sputum, Induced/Lukens Gram Stain - Final 06/08/21 10:05 Sputum, Induced/Lukens Respiratory Culture - Preliminary Culture exhibits no growth. 06/05/21 13:15 Blood Culture (Wb) - Anticubital Left Blood Culture - Preliminary No growth in 48 hours. 06/06/21 09:40 Sputum, Induced/Lukens Gram Stain - Final 06/06/21 09:40 Sputum, Induced/Lukens Respiratory Culture - Final 06/04/21 18:05 Urine, Clean Catch Legionella Antigen - Final 06/04/21 18:05 Urine, Clean Catch Streptococcus pneumoniae Antigen (M - Final 06/04/21 09:40 Interface Orders Respiratory Panel (PCR) - Final Physical Exam Narrative Exam minimized due to Covid Assessment & Plan Assessment/Plan (1) DAVID (acute kidney injury): PLAN: Acute renal failure, in the setting of Covid pneumonia. BUN and creatinine are better today. Electrolytes are acceptable. ok Urine output.
--- NOTE | 2021-06-09 15:26 | PCM.PN.ID ---
Physical Exam Narrative On vent, no fever Const no apparent distress Resp Effort and Inspection: mechanically ventilated Auscultation: diminished lung sounds Cardio regular rate and regular rhythm GI normal to inspection, nondistended, normoactive bowel sounds Skin no rashes or lesions noted ID ID: Route of nutrition/ use of supplements: [] Nutritional Intake: [] IV Site: [] Chan Catheter: [] Assessment & Plan Assessment/Plan (1) Pneumonia due to 2019 novel coronavirus: PLAN: Sx started around 05/28. Unvaccinated. On vent. Isolate for 20 days from start of sx. Vaccine once out of iso. On dex, remdesivir, baricitinib, zosyn. Cxs neg here so far. Sputum neg. Will stop zosyn today. Will follow (2) Acute respiratory failure with hypoxemia:
--- NOTE | 2021-06-09 15:30 | CASEMGMT ---
Social Work SW spoke with pt niece Kathi Ng. She states she is pt's honorary Niece and Susie Velásquez is pt's honorary Daughter. Pt does not have a Healthcare POA. Pt does not have a or children. He does have a brother Ge Preston [phone] home, cell. Kathi states she has spoke with him and kept him updated on pt care and he is aware he is the Next of Kin and decision maker. EARNEST inquired if there were other siblings and she states there are, although she does not know where they are. Kathi states that if pt is able to return home after hospitalization, he will be going to her house and she will be able to provide 24 hour care. EARNEST offered emotional support to Kathi. EARNEST will continue to follow. BALAJI Oconnell
[2021-06-09 17:56] LABS: Bedside Glucose 168 mg/dL (70-110)
[2021-06-09] MEDS: Atorvastatin Calcium 40 MG Tablet PO (20:13)
[2021-06-09] MEDS: Nystatin Powder 15gm Bottle 1 APPLIC TOPICAL (23:09)
[2021-06-10] VITALS (31 sets, daily range): BP systolic 101–143; BP diastolic 51–68; PULSE 60–87; RESP 16–19; TEMP 36.2–38.4; O2SAT 81–97
[2021-06-10 00:05] LABS: Bedside Glucose 104 mg/dL (70-110)
[2021-06-10] MEDS: Propofol 10MG/Ml 1,000 MG/100 ML Bottle 27.5 MG CONT INF ×7 (03:22→21:00)
[2021-06-10 04:01] LABS: Absolute Lymphocyte Count 0.71 X10^3/uL (0.83-4.51); Absolute Neutrophil Count 5.1 X10^3/uL (2.0-7.7); Basophil# 0.01 X10^3/uL; Basophil% 0.2 % (0-1); Eosinophil# 0.24 X10^3/uL; Eosinophils% 3.7 % (0-5); Hematocrit 35.9 % (40-54); Hemoglobin 11.9 g/dL (13.0-16.5); Lymphocyte # 0.71 X10^3/ul (0.83-4.51); Lymphocyte % 10.9 % (19-41); Mean Corp Hgb Conc 33.1 g/dL (32-36); Mean Corpuscular Hgb 30.7 pg (27.0-32.0); Mean Corpuscular Volume 92.8 fL (80-94); Mean Platelet Vol. 10.6 fl (6.2-12.0); Monocyte# 0.35 X10^3/uL; Monocyte% 5.4 % (0-10); NRBC Flagged by Analyzer 0 % (0-5); Neutrophil # 5.07 X10^3/uL (2.7-7.7); Neutrophil % 77.5 % (47-70); Platelet Count 307 K/mm3 (150-450); RBC Distribution Width CV 14.6 % (11.6-14.6); RBC Distribution Width SD 49.3 fl (35.1-43.9); Red Blood Count 3.87 M/mm3 (4.6-6.2); White Blood Count 6.5 K/mm3 (4.4-11.0)
[2021-06-10 04:59] LABS: ALB/GLOB Ratio 0.5 RATIO (0.9-2.4); AST(SGOT) 47 U/L (15-37); Alanine Aminotransfer ALT/SGPT 39 U/L (16-61); Alkaline Phosphatase 65 U/L (45-117); Anion Gap 7 (5-15); BUN 41 mg/dL (7-18); BUN/Creat Ratio 42.1 RATIO (10-20); Calcium,Total 8.5 mg/dL (8.5-10.1); Chloride 105 mmol/L (98-107); Creatinine, Serum 0.98 mg/dL (0.70-1.30); EST Glomerular Filtration Rate 80 mL/min (>60); Est Glom Filt Rate - Afr Amer 96 mL/min (>60); Estimated Creatinine Clearance 62.04 ml/min; Globulin 4.4 g/dL (2.2-4.2); Glucose 96 mg/dL (74-106); Protein, Total 6.4 g/dL (6.4-8.2); Sodium Level 141 mmol/L (136-145)
[2021-06-10] MEDS: Nystatin Powder 15gm Bottle 1 APPLIC TOPICAL ×3 (05:17→20:41)
--- NOTE | 2021-06-10 06:57 | PCM.PN.HOSP ---
Subjective Subjective Patient remains on the vent with difficulty with sedation. Continues to have significant amount of secretions by ET tube Objective Data Objective Data Vital Signs: Vital Signs Temp Pulse Resp BP Pulse Ox 97.6 F L 60 16 110/55 L 90 06/10/21 04:00 06/10/21 06:00 06/10/21 06:00 06/10/21 06:00 06/10/21 05:00 Oxygen Flow Rate (L/min) 60 Oxygen Delivery Method Mechanical Ventilator Weight: 89.584 kg Body Mass Index (BMI) 30.1 Intake & Output: Intake and Output for Last 24 Hours 06/08/21 06/09/21 06/10/21 23:59 23:59 23:59 Intake Total 3131.26 / 3276.06 2623.33 / 2686.62 385.01 / 385.01 Output Total 685 / 1210 5075 / 5075 350 / 350 Balance 2446.26 / 2066.06 -2451.67 / -2388.38 35.01 / 35.01 Lab / Micro Data Result Diagrams: 06/10/21 03:00 06/10/21 03:00 Labs: Laboratory Results - last 24 hr 06/09/21 10:58: POC Glucose 193 H 06/09/21 16:49: POC Glucose 168 H 06/09/21 23:48: POC Glucose 104 06/10/21 03:00: WBC 6.5, RBC 3.87 L, Hgb 11.9 L, Hct 35.9 L, MCV 92.8, MCH 30.7, MCHC 33.1 D, RDW Std Deviation 49.3 H, RDW Coeff of Miles 14.6, Plt Count 307, MPV 10.6, Immature Gran % (Auto) 2.300 H, Neut % (Auto) 77.5 H, Lymph % (Auto) 10.9 L, [place] % (Auto) 5.4, Eos % (Auto) 3.7, Baso % (Auto) 0.2, Absolute Neuts (auto) 5.1, Absolute Lymphs (auto) 0.71 L, Nucleated RBC % 0 06/10/21 03:00: Sodium 141, Potassium 4.0, Chloride 105, Carbon Dioxide 29.0, Anion Gap 7, BUN 41 H, Creatinine 0.98, Estim Creat Clear Calc 62.04, Est GFR (MDRD) Af Amer 96, Est GFR (MDRD) Non-Af 80, BUN/Creatinine Ratio 42.1 H, Glucose 96, Calcium 8.5, Total Bilirubin 0.50, AST 47 H, ALT 39, Alkaline Phosphatase 65, Total Protein 6.4, Albumin 2.0 L, Globulin 4.4 H, Albumin/Globulin Ratio 0.5 L Micro: Microbiology 06/08/21 10:05 Sputum, Induced/Lukens Gram Stain - Final 06/08/21 10:05 Sputum, Induced/Lukens Respiratory Culture - Preliminary Culture exhibits no growth. 06/05/21 13:15 Blood Culture (Wb) - Anticubital Left Blood Culture - Preliminary No growth in 48 hours. 06/06/21 09:40 Sputum, Induced/Lukens Gram Stain - Final 06/06/21 09:40 Sputum, Induced/Lukens Respiratory Culture - Final 06/04/21 18:05 Urine, Clean Catch Legionella Antigen - Final 06/04/21 18:05 Urine, Clean Catch Streptococcus pneumoniae Antigen (M - Final 06/04/21 09:40 Interface Orders Respiratory Panel (PCR) - Final Physical Exam Narrative GENERAL: Patient on the vent HEENT: Atraumatic; EYES; Anicteric, Normal Conjunctiva NECK; supple, normal thyroid, RESPIRATORY: Diminished to auscultation CARDIOVASCULAR: Regular S1 S2, GI: soft, normoactive bowel sounds, : No Renal angle tenderness; EXTREMITIES: No edema, no clubbing, MUSCULOSKELETAL: no muscle waisting NEURO: Patient on the vent SKIN: No Rash PSYCH; on the vent Assessment & Plan Assessment/Plan (1) Acute respiratory failure with hypoxemia: (2) Pneumonia due to 2019 novel coronavirus: (3) Prediabetes: PLAN: Patient is a 76-year-old gentleman unvaccinated against COVID-19 presented with progressive shortness of breath and assessment of acute hypoxic respiratory failure made admitted to the intensive care unit where patient is currently being managed 1. Acute hypoxic respiratory failure ?Secondary to SARS-CoV-2 pneumonia. Patient was placed on noninvasive ventilation BiPAP due to worsening respiratory status. Treatment initiated with Decadron remdesivir as well as baricitinib -06/07/2021; was intubated in view of progressive respiratory failure the day prior. ?06/08/2021;Patient seen remains in ICU on the vent. He apparently desaturated this a.m. and had to be suctioned aggressively with copious amount of secretions found. Sputum cultures obtained on 06/06/2021 so far negative to date -06/19/2021; Patient seen remains on the vent with copious thick secretions being suctioned out of the ET tube. His kidney function appears to be back to baseline ?06/10/2021; Patient remains on the vent with difficulty with sedation. Continues to have significant amount of secretions by ET tube. Subsequent vent management and adjustment deferred to pulmonary medicine 2. Acute kidney injury ?Superimposed on chronic kidney disease stage IIIa. Baseline creatinine 1.49. Patient kidney function is worsening with BUN of 63 and creatinine of 2.04. Consult placed to nephrology -06/09/2021; kidney function back to baseline with creatinine of 1.10 3. Hypokalemia -corrected per protocol 4. Elevated troponin ?Secondary to NSTEMI type II as a result of demand ischemia as a result of 1 5. Hypertension - Blood pressure controlled, home medications continued with dose adjustment as needed 6. Dyslipidemia -Patient is on statin therapy, continued at home dose 7. 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 History of paroxysmal A. fib ?Rate controlled on beta-blockers on systemic anticoagulation with dabigatran 9. DVT prophylaxis ?Patient is on dabigatran did continue 10. Hematuria patient has a Chan catheter in place we will continue to observe and if this persists we will hold patient's dabigatran -06/09/2021. No more hematuria via Chan catheter Charges/Coding Visit Charges Inpatient E&M: [id number] [facility] L3
--- NOTE | 2021-06-10 07:14 | PN.CC_ITS ---
Assessment & Plan Assessment/Plan (1) Acute respiratory failure with hypoxemia: (2) Pneumonia due to 2019 novel coronavirus: PLAN: RECOMMENDATIONS: 1. Continue patient on assist control mode of mechanical ventilation. Wean FiO2/PEEP to maintain saturations at or above 90%. 2. Continue Decadron and baricitinib. 3. Continue tube feeds as tolerated. 4. Continue appropriate prophylaxis. 5. Continue scheduled Lasix as tolerated by hemodynamics and renal function. 6. Start Precedex today. 7. Obtain repeat chest x-ray. 8. Continue appropriate GI prophylaxis. IMPRESSIONS: 1. Acute hypoxemic respiratory failure secondary to COVID-19 pneumonia The patient presented to the hospital with progressive symptoms within 10 days of onset. He is unvaccinated at baseline. Unfortunately, the patient's oxygenation status continues to worsen. The patient failed to respond to noninvasive positive pressure ventilatory support and ultimately was intubated on June 06. The patient has completed a treatment course of antimicrobials and remdesivir. He will be continued on Decadron and baricitinib. Continue Lovenox as ordered. Diuretic therapy, as needed, can be utilized to maintain euvolemic state. Continue tube feeds as tolerated. 2. Acute on chronic kidney disease Resolved. Likely prerenal in etiology and related to acute presentation. Continue to monitor urine output for now. No current indication for renal replacement therapy. Avoid nephrotoxic medications. 3. Obesity/hypertension/hyperlipidemia Complicates care, management, recovery and prognosis. Continue home medications as indicated. TIME: 34 minutes of critical care time, independent of procedures, was spent addressing the patient's acute hypoxemic respiratory failure secondary to COVID- 19 pneumonia, acute on chronic kidney disease, review of all data and collaboration with care team. Subjective Subjective The patient was seen and examined at the bedside this morning. Events from the last 24 hours have been reviewed. The patient is currently afebrile, hemodynamically stable and maintaining appropriate oxygen saturations on assist control mode of mechanical ventilation with an FiO2 requirement of 55% and PEEP of 10. Tube feeds are currently on hold due to high residuals. The patient r emains appropriately sedated on propofol and fentanyl. He is currently documented to be overall net +3.5 L for the hospitalization. Liver and renal function are stable. The patient has completed a treatment course of antimicrobials and remains on Decadron, baricitinib, Lovenox and Lasix. Of note, the patient has been intermittently dyssynchronous with the ventilator over the course of the morning, despite being on high doses of propofol and fentanyl. A chest x-ray will be obtained and the patient will be initiated on Precedex as well. Objective Data Objective Data The patient's most recent lab work, culture data and imaging studies have all been personally reviewed. Coronavirus PCR was positive on June 03. Respiratory viral panel was negative. Strep and urine Legionella antigens were negative. MRSA screen was negative. Vital Signs: Vital Signs Temp Pulse Resp BP Pulse Ox 97.6 F L 60 16 126/57 H 88 06/10/21 04:00 06/10/21 07:00 06/10/21 07:00 06/10/21 07:00 06/10/21 07:00 Oxygen Flow Rate (L/min) 60 Oxygen Delivery Method Mechanical Ventilator Weight: 89.584 kg Body Mass Index (BMI) 30.1 Intake & Output: Intake and Output for Last 24 Hours 06/08/21 06/09/21 06/10/21 23:59 23:59 23:59 Intake Total 3131.26 / 3276.06 2623.33 / 2686.62 406.92 / 406.92 Output Total 685 / 1210 5075 / 5075 350 / 350 Balance 2446.26 / 2066.06 -2451.67 / -2388.38 56.92 / 56.92 Lab / Micro Data Attestation: I reviewed the patient's lab results. Result Diagrams: 06/10/21 03:00 06/10/21 03:00 Labs: Laboratory Results - last 24 hr 06/09/21 10:58: POC Glucose 193 H 06/09/21 16:49: POC Glucose 168 H 06/09/21 23:48: POC Glucose 104 06/10/21 03:00: WBC 6.5, RBC 3.87 L, Hgb 11.9 L, Hct 35.9 L, MCV 92.8, MCH 30.7, MCHC 33.1 D, RDW Std Deviation 49.3 H, RDW Coeff of Miles 14.6, Plt Count 307, MPV 10.6, Immature Gran % (Auto) 2.300 H, Neut % (Auto) 77.5 H, Lymph % (Auto) 10.9 L, [place] % (Auto) 5.4, Eos % (Auto) 3.7, Baso % (Auto) 0.2, Absolute Neuts (auto) 5.1, Absolute Lymphs (auto) 0.71 L, Nucleated RBC % 0 06/10/21 03:00: Sodium 141, Potassium 4.0, Chloride 105, Carbon Dioxide 29.0, Anion Gap 7, BUN 41 H, Creatinine 0.98, Estim Creat Clear Calc 62.04, Est GFR (MDRD) Af Amer 96, Est GFR (MDRD) Non-Af 80, BUN/Creatinine Ratio 42.1 H, G lucose 96, Calcium 8.5, Total Bilirubin 0.50, AST 47 H, ALT 39, Alkaline Phos phatase 65, Total Protein 6.4, Albumin 2.0 L, Globulin 4.4 H, Albumin/Globulin Ratio 0.5 L Micro: Microbiology 06/08/21 10:05 Sputum, Induced/Lukens Gram Stain - Final 06/08/21 10:05 Sputum, Induced/Lukens Respiratory Culture - Preliminary Culture exhibits no growth. 06/05/21 13:15 Blood Culture (Wb) - Anticubital Left Blood Culture - Preliminary No growth in 48 hours. 06/06/21 09:40 Sputum, Induced/Lukens Gram Stain - Final 06/06/21 09:40 Sputum, Induced/Lukens Respiratory Culture - Final 06/04/21 18:05 Urine, Clean Catch Legionella Antigen - Final 06/04/21 18:05 Urine, Clean Catch Streptococcus pneumoniae Antigen (M - Final 06/04/21 09:40 Interface Orders Respiratory Panel (PCR) - Final Physical Exam Const no apparent distress General Appearance: intubated and patient mechanically ventilated Nutritional Appearance: obese HEENT normocephalic and head/scalp atraumatic Mouth: endotracheal tube in place and OG tube in place Eyes PERRL, EOMs intact bilaterally and conjunctivae normal Neck supple General: trachea midline Chest inspection of chest normal Resp Auscultation: rhonchi and diminished lung sounds; Negative for rales or wheezes Cardio regular rate and regular rhythm GI normal to inspection, nondistended, normoactive bowel sounds Extremity no clubbing, cyanosis or edema Skin no rashes or lesions noted Neuro Sensorium / Orientation: sedated on vent Charges/Coding Procedures Hospitalists Procedures: [id number] Critial Care 1st Hr
[2021-06-10] MEDS: 0.9% Saline Lock 10 ML Syringe IV (07:58)
--- NOTE | 2021-06-10 07:58 | RAD_ITS ---
STUDY: X-RAY CHEST REASON FOR EXAM: Male, 76 years old. Respiratory Failure TECHNIQUE: Single AP portable view of the chest. COMPARISON: Comparison is made with prior study dated 06/06/2021. FINDINGS: An endotracheal tube is seen. The tip is at 3.3 cm proximal to the dusty. An orogastric tube is seen with the tip in the fundal portion of the stomach. A right-sided PICC line catheter is seen with the tip at the junction of the superior vena cava and right atrium. EKG electrodes are seen. Since prior study, there is evidence of progressive bilateral pulmonary infiltrates. There is blunting of the left costophrenic angle. Normal size heart. A left-sided dual-chamber pacemaker is seen. Normal mediastinum and seth. Normal visualized pulmonary arteries. Normal visualized aortic arch and descending thoracic aorta. Normal visualized thoracic spine. Normal visualized ribs, clavicles, and shoulders. There is no demonstrated abnormality of the visualized soft tissue structures of the upper abdomen. RAD/Chest 1 View (Portable) IMPRESSION: There is been progressive bilateral pulmonary infiltrates as compared to prior study. All the support tubes are in good position. Electronically Signed: Hesham Araiza MD at 13:31 EDT , Service support ,
[2021-06-10] MEDS: Enoxaparin 100 MG/ML Syringe 90 MG SC ×2 (07:59→20:43)
[2021-06-10] MEDS: Ascorbic Acid 500 MG Tablet PO (07:59)
[2021-06-10] MEDS: Furosemide 40 MG/4 ML Vial IV ×2 (08:00→16:51)
[2021-06-10] MEDS: CHLORHEXIDINE GLUC 2% CLOTH 1 EACH TOWELETTE TOPICAL (08:00)
[2021-06-10] MEDS: dexAMETHasone 10 MG/ML Vial 6 MG IV (08:00)
[2021-06-10] MEDS: Chlorhexidine 15 ML PO ×2 (08:04→20:06)
[2021-06-10] MEDS: Acetaminophen 650 MG/20 ML UDC GT (09:04)
[2021-06-10] MEDS: Insulin Lispro 100 UNIT/ML INSULN.PEN SC ×2 (11:44→16:50)
[2021-06-10] MEDS: Vital AF 1.2 Cal Liquid 1,000 ML 60 ML GT (11:45)
[2021-06-10 13:11] LABS: Bedside Glucose 172 mg/dL (70-110)
--- NOTE | 2021-06-10 13:27 | CASEMGMT ---
Social Work SW spoke with pt brother Ge Preston. Discussed that pt has no HCPOA and that he is next of kin and pt decision maker. Ge is understanding but does state Kathi Ng and Susie Velásquez can receive any medical information on pt and that Ge will consult with Kathi prior to any decisions being made. Ge does state that pt received services from [facility] and thinks they may have a HCPOA on file. EARNEST placed call to [facility] [phone] and left VM inquiring about possibility of HCPOA for pt and requested it faxed. BALAJI Oconnell
--- NOTE | 2021-06-10 14:03 | PN.RENAL_ITS ---
Subjective Subjective Resting in bed. On vent. No overnight events. No acute distress noted. Objective Data Objective Data Vital Signs: Vital Signs Temp Pulse Resp BP Pulse Ox 99.7 F H 60 16 102/51 L 97 06/10/21 12:00 06/10/21 13:00 06/10/21 13:00 06/10/21 13:00 06/10/21 13:00 Oxygen Flow Rate (L/min) 60 Oxygen Delivery Method Mechanical Ventilator Weight: 89.584 kg Body Mass Index (BMI) 30.1 Intake & Output: Intake and Output for Last 24 Hours 06/08/21 06/09/21 06/10/21 23:59 23:59 23:59 Intake Total 3131.26 / 3276.06 2623.33 / 2686.62 1190.29 / 1190.29 Output Total 685 / 1210 5075 / 5075 700 / 700 Balance 2446.26 / 2066.06 -2451.67 / -2388.38 490.29 / 490.29 Lab / Micro Data Result Diagrams: 06/10/21 03:00 06/10/21 03:00 Labs: Laboratory Results - last 24 hr 06/09/21 16:49: POC Glucose 168 H 06/09/21 23:48: POC Glucose 104 06/10/21 03:00: WBC 6.5, RBC 3.87 L, Hgb 11.9 L, Hct 35.9 L, MCV 92.8, MCH 30.7, MCHC 33.1 D, RDW Std Deviation 49.3 H, RDW Coeff of Miles 14.6, Plt Count 307, MPV 10.6, Immature Gran % (Auto) 2.300 H, Neut % (Auto) 77.5 H, Lymph % (Auto) 10.9 L, [place] % (Auto) 5.4, Eos % (Auto) 3.7, Baso % (Auto) 0.2, Absolute Neuts (auto) 5.1, Absolute Lymphs (auto) 0.71 L, Nucleated RBC % 0 06/10/21 03:00: Sodium 141, Potassium 4.0, Chloride 105, Carbon Dioxide 29.0, Anion Gap 7, BUN 41 H, Creatinine 0.98, Estim Creat Clear Calc 62.04, Est GFR (MDRD) Af Amer 96, Est GFR (MDRD) Non-Af 80, BUN/Creatinine Ratio 42.1 H, Glucose 96, Calcium 8.5, Total Bilirubin 0.50, AST 47 H, ALT 39, Alkaline Phosphatase 65, Total Protein 6.4, Albumin 2.0 L, Globulin 4.4 H, Albumin/Vira bulin Ratio 0.5 L 06/10/21 11:41: POC Glucose 172 H Micro: Microbiology 06/08/21 10:05 Sputum, Induced/Lukens Gram Stain - Final 06/08/21 10:05 Sputum, Induced/Lukens Respiratory Culture - Final Culture exhibits no growth. 06/05/21 13:15 Blood Culture (Wb) - Anticubital Left Blood Culture - Preliminary No growth in 48 hours. 06/06/21 09:40 Sputum, Induced/Lukens Gram Stain - Final 06/06/21 09:40 Sputum, Induced/Lukens Respiratory Culture - Final 06/04/21 18:05 Urine, Clean Catch Legionella Antigen - Final 06/04/21 18:05 Urine, Clean Catch Streptococcus pneumoniae Antigen (M - Final 06/04/21 09:40 Interface Orders Respiratory Panel (PCR) - Final Radiography Diagnostic Testing: Radiology Impression Chest X-Ray 06/10/21 07:58 IMPRESSION: There is been progressive bilateral pulmonary infiltrates as compared to prior study. All the support tubes are in good position. Electronically Signed: Hesham Araiza MD at 13:31 EDT , Service support , Physical Exam Narrative Exam minimized due to Covid isolation vincent with clear urine in bag Assessment & Plan Assessment/Plan (1) DAVID (acute kidney injury): PLAN: Acute renal failure, nonoliguric, in the setting of Covid pneumonia. Creatinine 1.89 on admission, peaked 2.0 on 06/06 and today creatinine is 0.98 mg/dL. Electrolytes are acceptable. ok Urine output. Lasix 40mg IV bid. Weight 89kg.
[2021-06-10 17:10] LABS: Bedside Glucose 154 mg/dL (70-110)
[2021-06-10] MEDS: Atorvastatin Calcium 40 MG Tablet PO (20:42)
[2021-06-10] MEDS: Propofol 10MG/Ml 1,000 MG/100 ML Bottle 24.7 MG CONT INF (23:19)
[2021-06-11] VITALS (34 sets, daily range): BP systolic 109–140; BP diastolic 58–72; PULSE 60–62; RESP 16; TEMP 36.4–37.5; O2SAT 88–94
[2021-06-11 02:01] LABS: Bedside Glucose 107 mg/dL (70-110)
[2021-06-11] MEDS: Propofol 10MG/Ml 1,000 MG/100 ML Bottle 22 MG CONT INF (03:53)
[2021-06-11 04:44] LABS: Absolute Neutrophil Count 6.7 X10^3/uL (2.0-7.7); Basophil# 0.01 X10^3/uL; Basophil% 0.1 % (0-1); Eosinophils% 4.6 % (0-5); Hemoglobin 9.2 g/dL (13.0-16.5); Lymphocyte % 11.4 % (19-41); Mean Corp Hgb Conc 30.7 g/dL (32-36); Mean Corpuscular Hgb 28.9 pg (27.0-32.0); Mean Corpuscular Volume 94.3 fL (80-94); Mean Platelet Vol. 9.9 fl (6.2-12.0); Monocyte# 0.42 X10^3/uL; Monocyte% 4.8 % (0-10); NRBC Flagged by Analyzer 0 % (0-5); Neutrophil # 6.71 X10^3/uL (2.7-7.7); Neutrophil % 76.5 % (47-70); Platelet Count 405 K/mm3 (150-450); RBC Distribution Width CV 14.3 % (11.6-14.6); RBC Distribution Width SD 49.3 fl (35.1-43.9); Red Blood Count 3.18 M/mm3 (4.6-6.2); White Blood Count 8.8 K/mm3 (4.4-11.0)
[2021-06-11 05:00] LABS: ALB/GLOB Ratio 0.4 RATIO (0.9-2.4); AST(SGOT) 50 U/L (15-37); Alanine Aminotransfer ALT/SGPT 52 U/L (16-61); Albumin, Serum 2.1 g/dL (3.2-5.0); Alkaline Phosphatase 71 U/L (45-117); Anion Gap 4 (5-15); BUN 39 mg/dL (7-18); BUN/Creat Ratio 37.1 RATIO (10-20); Chloride 106 mmol/L (98-107); Creatinine, Serum 1.05 mg/dL (0.70-1.30); EST Glomerular Filtration Rate 73 mL/min (>60); Est Glom Filt Rate - Afr Amer 88 mL/min (>60); Glucose 106 mg/dL (74-106); Protein, Total 7.1 g/dL (6.4-8.2); Sodium Level 144 mmol/L (136-145)
--- NOTE | 2021-06-11 05:48 | PN.CC_ITS ---
Assessment & Plan Assessment/Plan (1) Acute respiratory failure with hypoxemia: (2) Pneumonia due to 2019 novel coronavirus: PLAN: RECOMMENDATIONS: 1. Continue patient on assist control mode of mechanical ventilation. Wean FiO2/PEEP to maintain saturations at or above 90%. 2. Continue Decadron and baricitinib. 3. Continue tube feeds as tolerated. 4. Continue appropriate prophylaxis. 5. Continue scheduled Lasix as tolerated by hemodynamics and renal function. Decrease IV Lasix to once daily. 6. Send type and screen. Continue to monitor H&H. 7. Continue appropriate GI prophylaxis. IMPRESSIONS: 1. Acute hypoxemic respiratory failure secondary to COVID-19 pneumonia The patient presented to the hospital with progressive symptoms within 10 days of onset. He is unvaccinated at baseline. Unfortunately, the patient's [place] status continues to worsen. The patient failed to respond to noninvasive positive pressure ventilatory support and ultimately was intubated on June 06. The patient has completed a treatment course of antimicrobials and remdesivir. He will be continued on Decadron and baricitinib. Continue Lovenox as ordered. Diuretic therapy, as needed, can be utilized to maintain euvolemic state. Continue tube feeds as tolerated. 2. Acute on chronic kidney disease Resolved. Likely prerenal in etiology and related to acute presentation. Continue to monitor urine output for now. No current indication for renal replacement therapy. Avoid nephrotoxic medications. 3. Anemia The patient's hemoglobin fell to 9.2 g/dL this morning. There are no overt signs of blood loss. Continue to monitor H&H daily. Transfuse if hemoglobin is less than 7 g/dL. Will send type and screen today. Therapeutic Lovenox may need to be discontinued or dose deescalated if anemia worsens. Continue appropriate GI prophylaxis. 4. Obesity/hypertension/hyperlipidemia Complicates care, management, recovery and prognosis. Continue home medications as indicated. TIME: 32 minutes of critical care time, independent of procedures, was spent addressing the patient's acute hypoxemic respiratory failure secondary to COVID- 19 pneumonia, acute on chronic kidney disease, anemia, review of all data and collaboration with care team. Subjective Subjective The patient was seen and examined at the bedside this morning. Events from the last 24 hours have been reviewed. The patient is currently afebrile, hemodynamically stable and maintaining appropriate oxygen saturations on assist control mode of mechanical ventilation with an FiO2 requirement of 70% and PEEP of 10. The patient remains appropriately sedated on propofol, Precedex and fentanyl. He is currently documented to be overall net +3.6 L for the hospitalization. Liver and renal function are stable. Hemoglobin did drop from 11.9 g/dL yesterday to 9.2 g/dL this morning. The patient has completed a treatment course of antimicrobials and remains on Decadron, baricitinib, Lovenox and Lasix. Today is day #6. Objective Data Objective Data The patient's most recent lab work, culture data and imaging studies have all been personally reviewed. Coronavirus PCR was positive on June 03. Respiratory viral panel was negative. Strep and urine Legionella antigens were negative. MRSA screen was negative. Vital Signs: Vital Signs Temp Pulse Resp BP Pulse Ox 98.3 F 60 16 115/65 90 06/11/21 05:00 06/11/21 05:00 06/11/21 05:00 06/11/21 05:00 06/11/21 05:00 Oxygen Flow Rate (L/min) 60 Oxygen Delivery Method Mechanical Ventilator Weight: 89.584 kg Body Mass Index (BMI) 30.1 Intake & Output: Intake and Output for Last 24 Hours 06/09/21 06/10/21 06/11/21 23:59 23:59 23:59 Intake Total 2623.33 / 2686.62 2313.64 / 2361.72 554.99 / 554.99 Output Total 5075 / 5075 2575 / 2575 215 / 215 Balance -2451.67 / -2388.38 -261.36 / -213.28 339.99 / 339.99 Lab / Micro Data Attestation: I reviewed the patient's lab results. Result Diagrams: 06/11/21 04:25 06/11/21 04:25 Labs: Laboratory Results - last 24 hr 06/10/21 11:41: POC Glucose 172 H 06/10/21 16:50: POC Glucose 154 H 06/10/21 23:41: POC Glucose 107 06/11/21 04:25: WBC 8.8, RBC 3.18 L, Hgb 9.2 L, Hct 30.0 L, MCV 94.3 H, MCH 28.9, MCHC 30.7 L D, RDW Std Deviation 49.3 H, RDW Coeff of Miles 14.3, Plt Count 405, MPV 9.9, Immature Gran % (Auto) 2.600 H, Neut % (Auto) 76.5 H, Lymph % (Auto) 11.4 L, [place] % (Auto) 4.8, Eos % (Auto) 4.6, Baso % (Auto) 0.1, Absolute Neuts (auto) 6.7, Absolute Lymphs (auto) 1.00, Nucleated RBC % 0 06/11/21 04:25: Sodium 144, Potassium 4.0, Chloride 106, Carbon Dioxide 34.0 H, Anion Gap 4 L, BUN 39 H, Creatinine 1.05, Estim Creat Clear Calc 57.90, Est GFR (MDRD) Af Amer 88, Est GFR (MDRD) Non-Af 73, BUN/Creatinine Ratio 37.1 H, Glucose 106, Calcium 9.0, Total Bilirubin 0.60, AST 50 H, ALT 52, Alkaline Phosphatase 71, Total Protein 7.1, Albumin 2.1 L, Globulin 5.0 H, Albumin/Globulin Ratio 0.4 L Micro: Microbiology 06/05/21 13:15 Blood Culture (Wb) - Anticubital Left Blood Culture - Final No growth in 5 days. 06/08/21 10:05 Sputum, Induced/Lukens Gram Stain - Final 06/08/21 10:05 Sputum, Induced/Lukens Respiratory Culture - Final Culture exhibits no growth. 06/06/21 09:40 Sputum, Induced/Lukens Gram Stain - Final 06/06/21 09:40 Sputum, Induced/Lukens Respiratory Culture - Final 06/04/21 18:05 Urine, Clean Catch Legionella Antigen - Final 06/04/21 18:05 Urine, Clean Catch Streptococcus pneumoniae Antigen (M - Final 06/04/21 09:40 Interface Orders Respiratory Panel (PCR) - Final Radiography Diagnostic Testing: Radiology Impression Chest X-Ray 06/10/21 07:58 IMPRESSION: There is been progressive bilateral pulmonary infiltrates as compared to prior study. All the support tubes are in good position. Electronically Signed: Hesham Araiza MD at 13:31 EDT , Service support , Physical Exam Const no apparent distress General Appearance: intubated and patient mechanically ventilated Nutritional Appearance: obese HEENT normocephalic and head/scalp atraumatic Mouth: endotracheal tube in place and OG tube in place Eyes PERRL, EOMs intact bilaterally and conjunctivae normal Neck supple General: trachea midline Chest inspection of chest normal Resp Auscultation: rhonchi and diminished lung sounds; Negative for rales or wheezes Cardio regular rate and regular rhythm GI normal to inspection, nondistended, normoactive bowel sounds Extremity no clubbing, cyanosis or edema Skin no rashes or lesions noted Neuro Sensorium / Orientation: sedated on vent Charges/Coding Procedures Hospitalists Procedures: 10642 [facility] 1st Hr
[2021-06-11] MEDS: CHLORHEXIDINE GLUC 2% CLOTH 1 EACH TOWELETTE TOPICAL (06:11)
[2021-06-11] MEDS: Nystatin Powder 15gm Bottle 1 APPLIC TOPICAL ×3 (06:11→21:06)
[2021-06-11 06:40] LABS: Bedside Glucose 131 mg/dL (70-110)
--- NOTE | 2021-06-11 07:12 | PCM.PN.HOSP ---
Subjective Subjective Patient seen remains on the vent with FiO2 of 70% and PEEP of 10. Precedex was added to his sedation the day prior. Patient appears stable on the vent Objective Data Objective Data Vital Signs: Vital Signs Temp Pulse Resp BP Pulse Ox 98.6 F 60 15 115/60 91 06/11/21 07:00 06/11/21 07:04 06/11/21 07:04 06/11/21 07:00 06/11/21 07:04 Oxygen Flow Rate (L/min) 60 Oxygen Delivery Method Mechanical Ventilator Weight: 88.536 kg Body Mass Index (BMI) 30.1 Intake & Output: Intake and Output for Last 24 Hours 06/09/21 06/10/21 06/11/21 23:59 23:59 23:59 Intake Total 2623.33 / 2686.62 2313.64 / 2361.72 656.83 / 656.83 Output Total 5075 / 5075 2575 / 2575 295 / 295 Balance -2451.67 / -2388.38 -261.36 / -213.28 361.83 / 361.83 Lab / Micro Data Result Diagrams: 06/11/21 04:25 06/11/21 04:25 Labs: Laboratory Results - last 24 hr 06/10/21 11:41: POC Glucose 172 H 06/10/21 16:50: POC Glucose 154 H 06/10/21 23:41: POC Glucose 107 06/11/21 04:25: WBC 8.8, RBC 3.18 L, Hgb 9.2 L, Hct 30.0 L, MCV 94.3 H, MCH 28.9, MCHC 30.7 L D, RDW Std Deviation 49.3 H, RDW Coeff of Miles 14.3, Plt Count 405, MPV 9.9, Immature Gran % (Auto) 2.600 H, Neut % (Auto) 76.5 H, Lymph % (Auto) 11.4 L, [place] % (Auto) 4.8, Eos % (Auto) 4.6, Baso % (Auto) 0.1, Absolute Neuts (auto) 6.7, Absolute Lymphs (auto) 1.00, Nucleated RBC % 0 06/11/21 04:25: Sodium 144, Potassium 4.0, Chloride 106, Carbon Dioxide 34.0 H, Anion Gap 4 L, BUN 39 H, Creatinine 1.05, Estim Creat Clear Calc 57.90, Est GFR (MDRD) Af Amer 88, Est GFR (MDRD) Non-Af 73, BUN/Creatinine Ratio 37.1 H, Glucose 106, Calcium 9.0, Total Bilirubin 0.60, AST 50 H, ALT 52, Alkaline Phosphatase 71, Total Protein 7.1, Albumin 2.1 L, Globulin 5.0 H, Albumin/Globulin Ratio 0.4 L 06/11/21 06:09: POC Glucose 131 H Micro: Microbiology 06/05/21 13:15 Blood Culture (Wb) - Anticubital Left Blood Culture - Final No growth in 5 days. 06/08/21 10:05 Sputum, Induced/Lukens Gram Stain - Final 06/08/21 10:05 Sputum, Induced/Lukens Respiratory Culture - Final Culture exhibits no growth. 06/06/21 09:40 Sputum, Induced/Lukens Gram Stain - Final 06/06/21 09:40 Sputum, Induced/Lukens Respiratory Culture - Final 06/04/21 18:05 Urine, Clean Catch Legionella Antigen - Final 06/04/21 18:05 Urine, Clean Catch Streptococcus pneumoniae Antigen (M - Final 06/04/21 09:40 Interface Orders Respiratory Panel (PCR) - Final Radiography Diagnostic Testing: Radiology Impression Chest X-Ray 06/10/21 07:58 IMPRESSION: There is been progressive bilateral pulmonary infiltrates as compared to prior study. All the support tubes are in good position. Electronically Signed: Hesham Araiza MD at 13:31 EDT , Service support , Physical Exam Narrative GENERAL: Patient on the vent HEENT: Atraumatic; EYES; Anicteric, Normal Conjunctiva NECK; supple, normal thyroid, RESPIRATORY: Diminished to auscultation CARDIOVASCULAR: Regular S1 S2, GI: soft, normoactive bowel sounds, : No Renal angle tenderness; EXTREMITIES: No edema, no clubbing, MUSCULOSKELETAL: no muscle waisting NEURO: Patient on the vent SKIN: No Rash PSYCH; on the vent Assessment & Plan Assessment/Plan (1) Acute respiratory failure with hypoxemia: (2) Pneumonia due to 2019 novel coronavirus: (3) Prediabetes: PLAN: Patient is a 76-year-old gentleman unvaccinated against COVID-19 presented with progressive shortness of breath and assessment of acute hypoxic respiratory failure made admitted to the intensive care unit where patient is currently being managed 1. Acute hypoxic respiratory failure ?Secondary to SARS-CoV-2 pneumonia. Patient was placed on noninvasive ventilation BiPAP due to worsening respiratory status. Treatment initiated with Decadron remdesivir as well as baricitinib -06/07/2021; was intubated in view of progressive respiratory failure the day prior. ?06/08/2021;Patient seen remains in ICU on the vent. He apparently desaturated this a.m. and had to be suctioned aggressively with copious amount of secretions found. Sputum cultures obtained on 06/06/2021 so far negative to date -06/19/2021; Patient seen remains on the vent with copious thick secretions being suctioned out of the ET tube. His kidney function appears to be back to baseline ?06/10/2021; Patient remains on the vent with difficulty with sedation. Continues to have significant amount of secretions by ET tube. Subsequent vent management and adjustment deferred to pulmonary medicine ?06/11/2021; Patient seen remains on the vent with FiO2 of 70% and PEEP of 10. Precedex was added to his sedation the day prior. Patient appears stable on the vent 2. Acute kidney injury ?Superimposed on chronic kidney disease stage IIIa. Baseline creatinine 1.49. Patient kidney function is worsening with BUN of 63 and creatinine of 2.04. Consult placed to nephrology -06/09/2021; kidney function back to baseline with creatinine of 1.10 3. Hypokalemia -corrected per protocol 4. Elevated troponin ?Secondary to NSTEMI type II as a result of demand ischemia as a result of 1 5. Hypertension - Blood pressure controlled, home medications continued with dose adjustment as needed 6. Dyslipidemia -Patient is on statin therapy, continued at home dose 7. 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 History of paroxysmal A. fib ?Rate controlled on beta-blockers on systemic anticoagulation with dabigatran 9. DVT prophylaxis ?Patient is on dabigatran did continue 10. Hematuria patient has a Chan catheter in place we will continue to observe and if this persists we will hold patient's dabigatran -06/09/2021. No more hematuria via Chan catheter Charges/Coding Visit Charges Inpatient E&M: 73307 Subs Hosp L3
[2021-06-11] MEDS: Propofol 10MG/Ml 1,000 MG/100 ML Bottle 27.5 MG CONT INF ×5 (08:18→23:49)
[2021-06-11] MEDS: Enoxaparin 100 MG/ML Syringe 90 MG SC ×2 (08:26→21:00)
[2021-06-11] MEDS: Chlorhexidine 15 ML PO ×2 (08:26→21:00)
[2021-06-11] MEDS: Furosemide 40 MG/4 ML Vial IV (08:27)
[2021-06-11] MEDS: dexAMETHasone 10 MG/ML Vial 6 MG IV (08:29)
[2021-06-11] MEDS: Ascorbic Acid 500 MG Tablet PO (08:30)
[2021-06-11] MEDS: Insulin Lispro 100 UNIT/ML INSULN.PEN SC (10:50)
[2021-06-11 11:16] LABS: Bedside Glucose 152 mg/dL (70-110)
[2021-06-11] MEDS: Atorvastatin Calcium 40 MG Tablet PO (21:00)
[2021-06-11 21:36] LABS: Bedside Glucose 147 mg/dL (70-110)
[2021-06-12] VITALS (31 sets, daily range): BP systolic 92–141; BP diastolic 54–71; PULSE 60–65; RESP 16–17; TEMP 36.8–38.2; O2SAT 86–94
[2021-06-12] MEDS: CHLORHEXIDINE GLUC 2% CLOTH 1 EACH TOWELETTE TOPICAL (01:04)
[2021-06-12] MEDS: Propofol 10MG/Ml 1,000 MG/100 ML Bottle 27.5 MG CONT INF (02:21)
[2021-06-12 04:13] LABS: Absolute Lymphocyte Count 0.72 X10^3/uL (0.83-4.51); Absolute Neutrophil Count 5.9 X10^3/uL (2.0-7.7); Basophil# 0.02 X10^3/uL; Basophil% 0.3 % (0-1); Eosinophil# 0.31 X10^3/uL; Eosinophils% 4.1 % (0-5); Hemoglobin 12.2 g/dL (13.0-16.5); Lymphocyte # 0.72 X10^3/ul (0.83-4.51); Lymphocyte % 9.5 % (19-41); Mean Corp Hgb Conc 32.1 g/dL (32-36); Mean Corpuscular Hgb 30.1 pg (27.0-32.0); Mean Corpuscular Volume 93.8 fL (80-94); Mean Platelet Vol. 10.3 fl (6.2-12.0); Monocyte# 0.43 X10^3/uL; Monocyte% 5.7 % (0-10); NRBC Flagged by Analyzer 0 % (0-5); Neutrophil # 5.88 X10^3/uL (2.7-7.7); Neutrophil % 77.5 % (47-70); Platelet Count 323 K/mm3 (150-450); RBC Distribution Width CV 14.1 % (11.6-14.6); RBC Distribution Width SD 48.7 fl (35.1-43.9); Red Blood Count 4.05 M/mm3 (4.6-6.2); White Blood Count 7.6 K/mm3 (4.4-11.0)
[2021-06-12] MEDS: TITRATION PARAMETER CHANGE 1 EACH IV (04:20)
[2021-06-12 04:31] LABS: Bedside Glucose 101 mg/dL (70-110)
[2021-06-12 05:06] LABS: ALB/GLOB Ratio 0.4 RATIO (0.9-2.4); AST(SGOT) 37 U/L (15-37); Alanine Aminotransfer ALT/SGPT 42 U/L (16-61); Alkaline Phosphatase 65 U/L (45-117); Anion Gap 5 (5-15); BUN 34 mg/dL (7-18); BUN/Creat Ratio 37.3 RATIO (10-20); Calcium,Total 8.6 mg/dL (8.5-10.1); Chloride 104 mmol/L (98-107); Creatinine, Serum 0.91 mg/dL (0.70-1.30); EST Glomerular Filtration Rate 86 mL/min (>60); Est Glom Filt Rate - Afr Amer 104 mL/min (>60); Estimated Creatinine Clearance 66.81 ml/min; Globulin 4.8 g/dL (2.2-4.2); Glucose 98 mg/dL (74-106); Potassium 4.1 mmol/L (3.5-5.1); Protein, Total 6.8 g/dL (6.4-8.2); Sodium Level 140 mmol/L (136-145)
--- NOTE | 2021-06-12 05:34 | PN.CC_ITS ---
Assessment & Plan Assessment/Plan (1) Acute respiratory failure with hypoxemia: (2) Pneumonia due to 2019 novel coronavirus: PLAN: RECOMMENDATIONS: 1. Continue patient on assist control mode of mechanical ventilation. Wean FiO2/PEEP to maintain saturations at or above 90%. 2. Continue Decadron, baricitinib and Lovenox. 3. Continue tube feeds as tolerated. 4. Continue scheduled Lasix as tolerated by hemodynamics and renal function. 5. Continue appropriate GI prophylaxis. IMPRESSIONS: 1. Acute hypoxemic respiratory failure secondary to COVID-19 pneumonia The patient presented to the hospital with progressive symptoms within 10 days of onset. He is unvaccinated at baseline. Unfortunately, the patient's oxygenation worsened and he failed to respond to noninvasive positive pressure ventilatory support, ultimately requiring intubation on June 06. The patient has completed a treatment course of antimicrobials and remdesivir. He will be continued on Decadron and baricitinib. Continue Lovenox as ordered. Diuretic t herapy, as needed, can be utilized to maintain euvolemic state. Continue tube feeds as tolerated. 2. Acute on chronic kidney disease Resolved. Likely prerenal in etiology and related to acute presentation. Continue to monitor urine output for now. No current indication for renal replacement therapy. Avoid nephrotoxic medications. 3. Anemia There are no overt signs of blood loss. Continue to monitor H&H daily. Transfuse if hemoglobin is less than 7 g/dL. Continue appropriate GI prophylaxis. 4. Obesity/hypertension/hyperlipidemia Complicates care, management, recovery and prognosis. Continue home medications as indicated. TIME: 33 minutes of critical care time, independent of procedures, was spent addressing the patient's acute hypoxemic respiratory failure secondary to COVID- 19 pneumonia, acute on chronic kidney disease, anemia, review of all data and collaboration with care team. ([id number]) Subjective Subjective The patient was seen and examined at the bedside this morning. Events from the last 24 hours have been reviewed. The patient currently has a low-grade fever, but remains otherwise hemodynamically stable. He remains on assist control mode mechanical ventilation with an FiO2 requirement of 70% and PEEP of 10. The patient remains appropriately sedated on propofol, Precedex and fentanyl. He is currently documented to be overall net +3.1 L for the hospitalization. Liver and renal function are stable. The patient has completed a treatment course of antimicrobials and remains on Decadron, baricitinib, Lovenox and Lasix. Today is day #7. Objective Data Objective Data The patient's most recent lab work, culture data and imaging studies have all been personally reviewed. Coronavirus PCR was positive on June 03. Respiratory viral panel was negative. Strep and urine Legionella antigens were negative. MRSA screen was negative. Vital Signs: Vital Signs Temp Pulse Resp BP Pulse Ox 100.4 F H 60 16 115/57 L 93 06/12/21 05:00 06/12/21 05:04 06/12/21 05:04 06/12/21 05:00 06/12/21 05:04 Oxygen Flow Rate (L/min) 60 Oxygen Delivery Method Mechanical Ventilator Weight: 91.217 kg Body Mass Index (BMI) 30.1 Intake & Output: Intake and Output for Last 24 Hours 06/10/21 06/11/21 06/12/21 23:59 23:59 22:59 Intake Total 2313.64 / 2361.72 2015.85 / 2050.41 376.85 / 376.85 Output Total 2575 / 2575 2320 / 2320 275 / 275 Balance -261.36 / -213.28 -304.15 / -269.59 101.85 / 101.85 Lab / Micro Data Attestation: I reviewed the patient's lab results. Result Diagrams: 06/12/21 04:00 06/12/21 04:00 Labs: Laboratory Results - last 24 hr 06/11/21 06:09: POC Glucose 131 H 06/11/21 07:45: Blood Type A POSITIVE, Antibody Screen NEGATIVE 06/11/21 10:49: POC Glucose 152 H 06/11/21 17:18: POC Glucose 147 H 06/11/21 23:59: POC Glucose 101 06/12/21 04:00: WBC 7.6, RBC 4.05 L, Hgb 12.2 L, Hct 38.0 L, MCV 93.8, MCH 30.1, MCHC 32.1, RDW Std Deviation 48.7 H, RDW Coeff of Miles 14.1, Plt Count 323, MPV 10.3, Immature Gran % (Auto) 2.900 H, Neut % (Auto) 77.5 H, Lymph % (Auto) 9.5 L , [place] % (Auto) 5.7, Eos % (Auto) 4.1, Baso % (Auto) 0.3, Absolute Neuts (auto) 5.9, Absolute Lymphs (auto) 0.72 L, Nucleated RBC % 0 06/12/21 04:00: Sodium 140, Potassium 4.1, Chloride 104, Carbon Dioxide 31.0, Anion Gap 5, BUN 34 H, Creatinine 0.91, Estim Creat Clear Calc 66.81, Est GFR (MDRD) Af Amer 104, Est GFR (MDRD) Non-Af 86, BUN/Creatinine Ratio 37.3 H, Glucose 98, Calcium 8.6, Total Bilirubin 0.60, AST 37, ALT 42, Alkaline Phosphatase 65, Total Protein 6.8, Albumin 2.0 L, Globulin 4.8 H, Albumin/Globulin Ratio 0.4 L Micro: Microbiology 06/05/21 13:15 Blood Culture (Wb) - Anticubital Left Blood Culture - Final No growth in 5 days. 06/08/21 10:05 Sputum, Induced/Lukens Gram Stain - Final 06/08/21 10:05 Sputum, Induced/Lukens Respiratory Culture - Final Culture exhibits no growth. 06/06/21 09:40 Sputum, Induced/Lukens Gram Stain - Final 06/06/21 09:40 Sputum, Induced/Lukens Respiratory Culture - Final 06/04/21 18:05 Urine, Clean Catch Legionella Antigen - Final 06/04/21 18:05 Urine, Clean Catch Streptococcus pneumoniae Antigen (M - Final 06/04/21 09:40 Interface Orders Respiratory Panel (PCR) - Final Physical Exam Const no apparent distress Constitutional Narrative: No ventilator dyssynchrony. Plateau pressures are appropriate. General Appearance: intubated and patient mechanically ventilated Nutritional Appearance: obese HEENT normocephalic and head/scalp atraumatic Mouth: endotracheal tube in place and OG tube in place Eyes PERRL, EOMs intact bilaterally and conjunctivae normal Neck supple General: trachea midline Chest inspection of chest normal Resp Auscultation: diminished lung sounds; Negative for rales, rhonchi or wheezes Cardio regular rate, regular rhythm, S1 normal heart sound and S2 normal heart sound GI normal to inspection, nondistended, normoactive bowel sounds Extremity no clubbing, cyanosis or edema Skin no rashes or lesions noted Neuro Sensorium / Orientation: sedated on vent Charges/Coding Procedures Hospitalists Procedures: [id number] [facility] 1st Hr
[2021-06-12] MEDS: Propofol 10MG/Ml 1,000 MG/100 ML Bottle 27.4 MG CONT INF ×4 (05:43→17:15)
[2021-06-12] MEDS: Nystatin Powder 15gm Bottle 1 APPLIC TOPICAL ×3 (05:48→21:30)
--- NOTE | 2021-06-12 07:24 | PN.HOSP_ITS ---
Subjective Subjective Patient seen remains on the vent with no change current vent settings FiO2 70% PEEP of 10. Objective Data Objective Data Vital Signs: Vital Signs Temp Pulse Resp BP Pulse Ox 100.5 F H 60 16 112/54 L 90 06/12/21 06:00 06/12/21 07:17 06/12/21 07:17 06/12/21 06:00 06/12/21 07:17 Oxygen Flow Rate (L/min) 60 Oxygen Delivery Method Mechanical Ventilator Weight: 91.217 kg Body Mass Index (BMI) 30.1 Intake & Output: Intake and Output for Last 24 Hours 06/10/21 06/11/21 06/12/21 23:59 23:59 22:59 Intake Total 2313.64 / 2361.72 2015.85 / 2050.41 432.37 / 432.37 Output Total 2575 / 2575 2320 / 2320 275 / 275 Balance -261.36 / -213.28 -304.15 / -269.59 157.37 / 157.37 Lab / Micro Data Result Diagrams: 06/12/21 04:00 06/12/21 04:00 Labs: Laboratory Results - last 24 hr 06/11/21 07:45: Blood Type A POSITIVE, Antibody Screen NEGATIVE 06/11/21 10:49: POC Glucose 152 H 06/11/21 17:18: POC Glucose 147 H 06/11/21 23:59: POC Glucose 101 06/12/21 04:00: WBC 7.6, RBC 4.05 L, Hgb 12.2 L, Hct 38.0 L, MCV 93.8, MCH 30.1, MCHC 32.1, RDW Std Deviation 48.7 H, RDW Coeff of Miles 14.1, Plt Count 323, MPV 10.3, Immature Gran % (Auto) 2.900 H, Neut % (Auto) 77.5 H, Lymph % (Auto) 9.5 L , [place] % (Auto) 5.7, Eos % (Auto) 4.1, Baso % (Auto) 0.3, Absolute Neuts (auto) 5.9, Absolute Lymphs (auto) 0.72 L, Nucleated RBC % 0 06/12/21 04:00: Sodium 140, Potassium 4.1, Chloride 104, Carbon Dioxide 31.0, Anion Gap 5, BUN 34 H, Creatinine 0.91, Estim Creat Clear Calc 66.81, Est GFR (MDRD) Af Amer 104, Est GFR (MDRD) Non-Af 86, BUN/Creatinine Ratio 37.3 H, Glucose 98, Calcium 8.6, Total Bilirubin 0.60, AST 37, ALT 42, Alkaline Phos phatase 65, Total Protein 6.8, Albumin 2.0 L, Globulin 4.8 H, Albumin/Globulin Ratio 0.4 L Micro: Microbiology 06/05/21 13:15 Blood Culture (Wb) - Anticubital Left Blood Culture - Final No growth in 5 days. 06/08/21 10:05 Sputum, Induced/Lukens Gram Stain - Final 06/08/21 10:05 Sputum, Induced/Lukens Respiratory Culture - Final Culture exhibits no growth. 06/06/21 09:40 Sputum, Induced/Lukens Gram Stain - Final 06/06/21 09:40 Sputum, Induced/Lukens Respiratory Culture - Final 06/04/21 18:05 Urine, Clean Catch Legionella Antigen - Final 06/04/21 18:05 Urine, Clean Catch Streptococcus pneumoniae Antigen (M - Final 06/04/21 09:40 Interface Orders Respiratory Panel (PCR) - Final Physical Exam Narrative GENERAL: Patient on the vent HEENT: Atraumatic; EYES; Anicteric, Normal Conjunctiva NECK; supple, normal thyroid, RESPIRATORY: Diminished to auscultation CARDIOVASCULAR: Regular S1 S2, GI: soft, normoactive bowel sounds, : No Renal angle tenderness; EXTREMITIES: No edema, no clubbing, MUSCULOSKELETAL: no muscle waisting NEURO: Patient on the vent SKIN: No Rash PSYCH; on the vent Assessment & Plan Assessment/Plan (1) Acute respiratory failure with hypoxemia: (2) Pneumonia due to 2019 novel coronavirus: (3) Prediabetes: PLAN: Patient is a 76-year-old gentleman unvaccinated against COVID-19 presented with progressive shortness of breath and assessment of acute hypoxic respiratory failure made admitted to the intensive care unit where patient is currently being managed 1. Acute hypoxic respiratory failure ?Secondary to SARS-CoV-2 pneumonia. Patient was placed on noninvasive v entilation BiPAP due to worsening respiratory status. Treatment initiated with Decadron remdesivir as well as baricitinib -06/07/2021; was intubated in view of progressive respiratory failure the day prior. ?06/08/2021;Patient seen remains in ICU on the vent. He apparently desaturated this a.m. and had to be suctioned aggressively with copious amount of secretions found. Sputum cultures obtained on 06/06/2021 so far negative to date -06/19/2021; Patient seen remains on the vent with copious thick secretions being suctioned out of the ET tube. His kidney function appears to be back to baseline ?06/10/2021; Patient remains on the vent with difficulty with sedation. Continues to have significant amount of secretions by ET tube. Subsequent vent management and adjustment deferred to pulmonary medicine ?06/11/2021; Patient seen remains on the vent with FiO2 of 70% and PEEP of 10. Precedex was added to his sedation the day prior. Patient appears stable on the vent ?06/12/2021; Patient seen remains on the vent with no change current vent settings FiO2 70% PEEP of 10. 2. Acute kidney injury ?Superimposed on chronic kidney disease stage IIIa. Baseline creatinine 1.49. Patient kidney function is worsening with BUN of 63 and creatinine of 2.04. Consult placed to nephrology -06/09/2021; kidney function back to baseline with creatinine of 1.10 3. Hypokalemia -corrected per protocol 4. Elevated troponin ?Secondary to NSTEMI type II as a result of demand ischemia as a result of 1 5. Hypertension - Blood pressure controlled, home medications continued with dose adjustment as needed 6. Dyslipidemia -Patient is on statin therapy, continued at home dose 7. 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 History of paroxysmal A. fib ?Rate controlled on beta-blockers on systemic anticoagulation with dabigatran 9. DVT prophylaxis ?Patient is on dabigatran did continue 10. Hematuria patient has a Chan catheter in place we will continue to observe and if this persists we will hold patient's dabigatran -06/09/2021. No more hematuria via Chan catheter Charges/Coding Visit Charges Inpatient E&M: 43116 [facility] L3
[2021-06-12] MEDS: Chlorhexidine 15 ML PO ×2 (08:29→21:29)
[2021-06-12] MEDS: Enoxaparin 100 MG/ML Syringe 90 MG SC ×2 (08:30→21:30)
[2021-06-12] MEDS: Ascorbic Acid 500 MG Tablet PO (08:30)
[2021-06-12] MEDS: dexAMETHasone 10 MG/ML Vial 6 MG IV (08:32)
[2021-06-12] MEDS: Furosemide 40 MG/4 ML Vial IV (08:34)
[2021-06-12] MEDS: Vital AF 1.2 Cal Liquid 1,000 ML 30 ML GT (08:36)
[2021-06-12 08:51] LABS: Bedside Glucose 96 mg/dL (70-110)
[2021-06-12] MEDS: Insulin Lispro 100 UNIT/ML INSULN.PEN SC ×2 (11:30→15:49)
[2021-06-12 16:25] LABS: Bedside Glucose 152 mg/dL (70-110)
[2021-06-12 16:31] LABS: Bedside Glucose 167 mg/dL (70-110)
[2021-06-12] MEDS: Propofol 10MG/Ml 1,000 MG/100 ML Bottle 21.9 MG CONT INF (21:00)
[2021-06-12] MEDS: 0.9% Saline Lock 10 ML Syringe IV (21:30)
[2021-06-12] MEDS: Atorvastatin Calcium 40 MG Tablet PO (21:31)
[2021-06-13] VITALS (36 sets, daily range): BP systolic 102–160; BP diastolic 53–87; PULSE 60–110; RESP 16–28; TEMP 36.6–37.7; O2SAT 90–98
[2021-06-13 00:36] LABS: Bedside Glucose 119 mg/dL (70-110)
[2021-06-13] MEDS: Propofol 10MG/Ml 1,000 MG/100 ML Bottle 16.4 MG CONT INF (01:30)
[2021-06-13] MEDS: CHLORHEXIDINE GLUC 2% CLOTH 1 EACH TOWELETTE TOPICAL (03:45)
[2021-06-13 04:34] LABS: Absolute Lymphocyte Count 0.75 X10^3/uL (0.83-4.51); Absolute Neutrophil Count 5.6 X10^3/uL (2.0-7.7); Basophil# 0.02 X10^3/uL; Basophil% 0.3 % (0-1); Eosinophil# 0.38 X10^3/uL; Eosinophils% 5.2 % (0-5); Hemoglobin 11.8 g/dL (13.0-16.5); Lymphocyte # 0.75 X10^3/ul (0.83-4.51); Lymphocyte % 10.3 % (19-41); Mean Corp Hgb Conc 31.1 g/dL (32-36); Mean Corpuscular Hgb 29.4 pg (27.0-32.0); Mean Corpuscular Volume 94.8 fL (80-94); Mean Platelet Vol. 10.1 fl (6.2-12.0); Monocyte# 0.39 X10^3/uL; Monocyte% 5.4 % (0-10); NRBC Flagged by Analyzer 0 % (0-5); Neutrophil # 5.55 X10^3/uL (2.7-7.7); Neutrophil % 76.2 % (47-70); Platelet Count 338 K/mm3 (150-450); RBC Distribution Width CV 13.8 % (11.6-14.6); RBC Distribution Width SD 48.6 fl (35.1-43.9); Red Blood Count 4.01 M/mm3 (4.6-6.2); White Blood Count 7.3 K/mm3 (4.4-11.0)
[2021-06-13] MEDS: Propofol 10MG/Ml 1,000 MG/100 ML Bottle 13.7 MG CONT INF ×4 (05:00→23:00)
[2021-06-13 05:30] LABS: ALB/GLOB Ratio 0.4 RATIO (0.9-2.4); AST(SGOT) 35 U/L (15-37); Alanine Aminotransfer ALT/SGPT 37 U/L (16-61); Albumin, Serum 1.8 g/dL (3.2-5.0); Alkaline Phosphatase 67 U/L (45-117); Anion Gap 6 (5-15); BUN 35 mg/dL (7-18); BUN/Creat Ratio 41.7 RATIO (10-20); Calcium,Total 8.2 mg/dL (8.5-10.1); Chloride 103 mmol/L (98-107); Creatinine, Serum 0.84 mg/dL (0.70-1.30); EST Glomerular Filtration Rate 94 mL/min (>60); Est Glom Filt Rate - Afr Amer 114 mL/min (>60); Estimated Creatinine Clearance 72.38 ml/min; Globulin 4.6 g/dL (2.2-4.2); Glucose 106 mg/dL (74-106); Potassium 3.9 mmol/L (3.5-5.1); Protein, Total 6.4 g/dL (6.4-8.2); Sodium Level 139 mmol/L (136-145)
[2021-06-13] MEDS: Nystatin Powder 15gm Bottle 1 APPLIC TOPICAL ×3 (05:40→20:34)
--- NOTE | 2021-06-13 08:07 | PN.CC_ITS ---
Assessment & Plan Assessment/Plan (1) Acute respiratory failure with hypoxemia: (2) Pneumonia due to 2019 novel coronavirus: PLAN: RECOMMENDATIONS: 1. Continue patient on assist control mode of mechanical ventilation. Wean FiO2/PEEP to maintain saturations at or above 90%. 2. Continue Decadron (06/13/2021), baricitinib (06/17/2021) and Lovenox (therapeutic). 3. Continue tube feeds as tolerated. 4. Continue scheduled Lasix as tolerated by hemodynamics and renal function. 5. Continue appropriate GI prophylaxis. IMPRESSIONS: 1. Acute hypoxemic respiratory failure secondary to COVID-19 pneumonia The patient presented to the hospital with progressive symptoms within 10 days of onset. He is unvaccinated at baseline. Unfortunately, the patient's oxygenation worsened and he failed to respond to noninvasive positive pressure ventilatory support, ultimately requiring intubation on June 06. The patient has completed a treatment course of antimicrobials and remdesivir. He will be continued on Decadron, baricitinib and Lovenox as ordered. Diuretic therapy, as needed, can be utilized to maintain euvolemic state. Continue tube feeds as tolerated. Patient on scheduled Lasix at this time. 2. Acute on chronic kidney disease Resolved. Likely prerenal in etiology and related to acute presentation. Continue to monitor urine output for now. No current indication for renal repl acement therapy. Avoid nephrotoxic medications. Electrolyte repletion as necessary 3. Anemia There are no overt signs of blood loss. Continue to monitor H&H daily. T ransfuse if hemoglobin is less than 7 g/dL. Continue appropriate GI prophylaxis. 4. Obesity/hypertension/hyperlipidemia Complicates care, management, recovery and prognosis. Continue home medications as indicated. Liver function studies are acceptable at this time. TIME: 35 minutes of critical care time, independent of procedures, was spent addressing the patient's acute hypoxemic respiratory failure secondary to COVID- 19 pneumonia, acute on chronic kidney disease, anemia, review of all data and collaboration with care team. (7:30 AM to 8:30 AM) Subjective Subjective The patient did okay overnight. No acute issues were reported. Patient still requiring significant FiO2 to maintain saturations. Patient did have a slight fever overnight, but remained hemodynamically stable. Patient has required significant sedation to maintain vent synchrony. Objective Data Objective Data Vital Signs: Vital Signs Temp Pulse Resp BP Pulse Ox 37.0 C 60 16 115/56 L 92 11/08/21 07:00 06/13/21 07:00 06/13/21 07:00 06/13/21 07:00 06/13/21 07:00 Oxygen Flow Rate (L/min) 60 Oxygen Delivery Method Mechanical Ventilator Weight: 90.492 kg Body Mass Index (BMI) 30.1 Intake & Output: Intake and Output for Last 24 Hours 06/12/21 06/12/21 06/13/21 00:59 23:59 23:59 Intake Total 464.72 / 464.72 Output Total 650 / 650 Balance -185.28 / -185.28 Lab / Micro Data Result Diagrams: 06/13/21 04:20 06/13/21 04:20 Labs: Laboratory Results - last 24 hr 06/12/21 05:35: POC Glucose 96 06/12/21 11:29: POC Glucose 167 H 06/12/21 15:48: POC Glucose 152 H 06/13/21 00:27: POC Glucose 119 H 06/13/21 04:20: WBC 7.3, RBC 4.01 L, Hgb 11.8 L, Hct 38.0 L, MCV 94.8 H, MCH 29.4, MCHC 31.1 L, RDW Std Deviation 48.6 H, RDW Coeff of Miles 13.8, Plt Count 338, MPV 10.1, Immature Gran % (Auto) 2.600 H, Neut % (Auto) 76.2 H, Lymph % (Auto) 10.3 L, [place] % (Auto) 5.4, Eos % (Auto) 5.2 H, Baso % (Auto) 0.3, Absolute Neuts (auto) 5.6, Absolute Lymphs (auto) 0.75 L, Nucleated RBC % 0 06/13/21 04:20: Sodium 139, Potassium 3.9, Chloride 103, Carbon Dioxide 30.0, Anion Gap 6, BUN 35 H, Creatinine 0.84, Estim Creat Clear Calc 72.38, Est GFR (MDRD) Af Amer 114, Est GFR (MDRD) Non-Af 94, BUN/Creatinine Ratio 41.7 H, Glucose 106, Calcium 8.2 L, Total Bilirubin 0.50, AST 35, ALT 37, Alkaline Phosphatase 67, Total Protein 6.4, Albumin 1.8 L, Globulin 4.6 H, Albumin/Globulin Ratio 0.4 L Micro: Microbiology 06/05/21 13:15 Blood Culture (Wb) - Anticubital Left Blood Culture - Final No growth in 5 days. 06/08/21 10:05 Sputum, Induced/Lukens Gram Stain - Final 06/08/21 10:05 Sputum, Induced/Lukens Respiratory Culture - Final Culture exhibits no growth. 06/06/21 09:40 Sputum, Induced/Lukens Gram Stain - Final 06/06/21 09:40 Sputum, Induced/Lukens Respiratory Culture - Final 06/04/21 18:05 Urine, Clean Catch Legionella Antigen - Final 06/04/21 18:05 Urine, Clean Catch Streptococcus pneumoniae Antigen (M - Final 06/04/21 09:40 Interface Orders Respiratory Panel (PCR) - Final Physical Exam Const no apparent distress Constitutional Narrative: No ventilator dyssynchrony. Plateau pressures are appropriate. General Appearance: intubated and patient mechanically ventilated Nutritional Appearance: obese HEENT normocephalic and head/scalp atraumatic Mouth: endotracheal tube in place and OG tube in place Eyes PERRL, EOMs intact bilaterally and conjunctivae normal Neck supple General: trachea midline Chest inspection of chest normal Chest: symmetrical chest wall rise; Negative for crepitus Resp Auscultation: diminished lung sounds; Negative for rales, rhonchi or wheezes Cardio regular rate, regular rhythm, S1 normal heart sound, S2 normal heart sound, no murmurs, no rub and no gallops GI normal to inspection, nondistended, normoactive bowel sounds Extremity General Extremity: Negative for clubbing, cyanosis or edema Skin no rashes or lesions noted Neuro Sensorium / Orientation: sedated on vent Charges/Coding Procedures Hospitalists Procedures: 06213 Critial Care 1st Hr
[2021-06-13] MEDS: dexAMETHasone 10 MG/ML Vial 6 MG IV (09:18)
[2021-06-13] MEDS: Furosemide 40 MG/4 ML Vial IV (09:18)
[2021-06-13] MEDS: Chlorhexidine 15 ML PO ×2 (09:18→20:39)
[2021-06-13] MEDS: Enoxaparin 100 MG/ML Syringe 90 MG SC ×2 (09:19→20:34)
[2021-06-13] MEDS: Ascorbic Acid 500 MG Tablet PO (09:20)
[2021-06-13] MEDS: Insulin Lispro 100 UNIT/ML INSULN.PEN SC (11:54)
[2021-06-13 12:05] LABS: Bedside Glucose 206 mg/dL (70-110)
--- NOTE | 2021-06-13 13:09 | PCM.PN.HOSP ---
Subjective Subjective Follow-up on acute hypoxic respiratory failure/Acute COVID-19 pneumonia: Patient seen and examined. He remains intubated. No acute events overnight. Objective Data Objective Data Vital Signs: Vital Signs Temp Pulse Resp BP Pulse Ox 99.8 F H 88 18 154/75 H 98 06/13/21 12:00 06/13/21 12:00 06/13/21 12:00 06/13/21 12:00 06/13/21 12:00 Oxygen Flow Rate (L/min) 60 Oxygen Delivery Method Mechanical Ventilator Weight: 90.492 kg Body Mass Index (BMI) 30.1 Intake & Output: Intake and Output for Last 24 Hours 06/12/21 06/12/21 06/13/21 00:59 23:59 23:59 Intake Total 1146.24 / 1146.24 Output Total 1999 Balance -853.76 / -853.76 Lab / Micro Data Result Diagrams: 06/13/21 04:20 06/13/21 04:20 Labs: Laboratory Results - last 24 hr 06/12/21 11:29: POC Glucose 167 H 06/12/21 15:48: POC Glucose 152 H 06/13/21 00:27: POC Glucose 119 H 06/13/21 04:20: WBC 7.3, RBC 4.01 L, Hgb 11.8 L, Hct 38.0 L, MCV 94.8 H, MCH 29.4, MCHC 31.1 L, RDW Std Deviation 48.6 H, RDW Coeff of Miles 13.8, Plt Count 338, MPV 10.1, Immature Gran % (Auto) 2.600 H, Neut % (Auto) 76.2 H, Lymph % (Auto) 10.3 L, [place] % (Auto) 5.4, Eos % (Auto) 5.2 H, Baso % (Auto) 0.3, Absolute Neuts (auto) 5.6, Absolute Lymphs (auto) 0.75 L, Nucleated RBC % 0 06/13/21 04:20: Sodium 139, Potassium 3.9, Chloride 103, Carbon Dioxide 30.0, Anion Gap 6, BUN 35 H, Creatinine 0.84, Estim Creat Clear Calc 72.38, Est GFR (MDRD) Af Amer 114, Est GFR (MDRD) Non-Af 94, BUN/Creatinine Ratio 41.7 H, Glucose 106, Calcium 8.2 L, Total Bilirubin 0.50, AST 35, ALT 37, Alkaline Phosphatase 67, Total Protein 6.4, Albumin 1.8 L, Globulin 4.6 H, Albumin/Globulin Ratio 0.4 L 06/13/21 11:53: POC Glucose 206 H Micro: Microbiology 06/05/21 13:15 Blood Culture (Wb) - Anticubital Left Blood Culture - Final No growth in 5 days. 06/08/21 10:05 Sputum, Induced/Lukens Gram Stain - Final 06/08/21 10:05 Sputum, Induced/Lukens Respiratory Culture - Final Culture exhibits no growth. 06/06/21 09:40 Sputum, Induced/Lukens Gram Stain - Final 06/06/21 09:40 Sputum, Induced/Lukens Respiratory Culture - Final 06/04/21 18:05 Urine, Clean Catch Legionella Antigen - Final 06/04/21 18:05 Urine, Clean Catch Streptococcus pneumoniae Antigen (M - Final 06/04/21 09:40 Interface Orders Respiratory Panel (PCR) - Final Physical Exam Narrative Physical exam: General: Sedated, intubated, HEENT: Atraumatic Oral: Moist Mucosa Neck: Supple Lungs: Clear to auscultation Cardiovascular: HS I+II, regular, no murmurs Abdomen: Bowel Sounds Present, Soft, Non Tender Extremities: No edema Assessment & Plan Assessment/Plan (1) Acute respiratory failure with hypoxemia: (2) Pneumonia due to 2019 novel coronavirus: (3) Prediabetes: PLAN: 1. Acute hypoxic respiratory failure secondary to acute COVID-19 pneumonia Status post intubation on 06/06/21 Oxygen requirement slightly worse Completed dexamethasone, continue on baricitinib 2. Acute kidney injury on CKD stage IIIa, improved Creatinine is now 0.84 Nephrology following 3. Elevated troponin secondary to NSTEMI type II as a result of demand ischemia secondary to #1 4. Rest of care recall conditions remained stable - home meds reviewed Charges/Coding Visit Charges Inpatient E&M: 74418 Subs Hosp L3
--- NOTE | 2021-06-13 14:42 | PCM.PN.ID ---
Physical Exam Narrative On vent, no fever Const no apparent distress Resp Effort and Inspection: mechanically ventilated Auscultation: diminished lung sounds Cardio regular rate and regular rhythm GI normal to inspection, nondistended, normoactive bowel sounds Skin no rashes or lesions noted ID ID: Route of nutrition/ use of supplements: [] Nutritional Intake: [] IV Site: [] Chan Catheter: [] Assessment & Plan Assessment/Plan (1) Pneumonia due to 2019 novel coronavirus: PLAN: Sx started around 05/28. Unvaccinated. On vent. Isolate for 20 days from start of sx. Vaccine once out of iso. Completed dex, remdesivir. On baricitinib. Cxs neg here so far. Sputum neg. Out of iso 06/17/21. Will follow (2) Acute respiratory failure with hypoxemia:
[2021-06-13] MEDS: Vital AF 1.2 Cal Liquid 1,000 ML 60 ML GT (18:34)
[2021-06-13 18:36] LABS: Bedside Glucose 89 mg/dL (70-110)
--- NOTE | 2021-06-13 19:30 | NURSING ---
When coming onto shift this RN notes that fentanyl drip is not consist with what is actually infusing. Fentanyl drip is actually infusing at 200mcg/hr.
[2021-06-13] MEDS: Acetaminophen 650 MG/20 ML UDC GT (20:34)
[2021-06-13] MEDS: Atorvastatin Calcium 40 MG Tablet PO (20:34)
--- NOTE | 2021-06-13 22:40 | NURSING ---
When coming onto shift, this RN notes that previous fentanyl titrations are inaccurate with what the patient is actually receiving. Fentanyl drip is actually infusing at 200mcg/hr.
[2021-06-14] VITALS (19 sets, daily range): BP systolic 113–161; BP diastolic 55–135; PULSE 60–98; RESP 16–30; TEMP 37.6–38.2; O2SAT 81–93
[2021-06-14 00:31] LABS: Bedside Glucose 130 mg/dL (70-110)
[2021-06-14 04:45] LABS: Absolute Lymphocyte Count 0.67 X10^3/uL (0.83-4.51); Absolute Neutrophil Count 7.2 X10^3/uL (2.0-7.7); Basophil# 0.01 X10^3/uL; Basophil% 0.1 % (0-1); Eosinophil# 0.36 X10^3/uL; Eosinophils% 4.1 % (0-5); Hematocrit 40.8 % (40-54); Hemoglobin 12.4 g/dL (13.0-16.5); Lymphocyte # 0.67 X10^3/ul (0.83-4.51); Lymphocyte % 7.6 % (19-41); Mean Corp Hgb Conc 30.4 g/dL (32-36); Mean Corpuscular Hgb 28.7 pg (27.0-32.0); Mean Corpuscular Volume 94.4 fL (80-94); Mean Platelet Vol. 9.7 fl (6.2-12.0); Monocyte# 0.49 X10^3/uL; Monocyte% 5.5 % (0-10); NRBC Flagged by Analyzer 0 % (0-5); Neutrophil # 7.18 X10^3/uL (2.7-7.7); Neutrophil % 81.3 % (47-70); Platelet Count 368 K/mm3 (150-450); RBC Distribution Width CV 13.7 % (11.6-14.6); RBC Distribution Width SD 47.9 fl (35.1-43.9); Red Blood Count 4.32 M/mm3 (4.6-6.2); White Blood Count 8.8 K/mm3 (4.4-11.0)
[2021-06-14 05:01] LABS: Anion Gap 3 (5-15); BUN 37 mg/dL (7-18); BUN/Creat Ratio 41.7 RATIO (10-20); Calcium,Total 9.3 mg/dL (8.5-10.1); Chloride 103 mmol/L (98-107); Creatinine, Serum 0.89 mg/dL (0.70-1.30); EST Glomerular Filtration Rate 89 mL/min (>60); Est Glom Filt Rate - Afr Amer 107 mL/min (>60); Estimated Creatinine Clearance 68.31 ml/min; Glucose 133 mg/dL (74-106); Potassium 3.8 mmol/L (3.5-5.1); Sodium Level 142 mmol/L (136-145)
[2021-06-14 06:41] LABS: CPK Total, Creatine Kinase 57 U/L (39-308); Triglycerides 349 mg/dL
--- NOTE | 2021-06-14 06:55 | PN.CC_ITS ---
Assessment & Plan Assessment/Plan (1) Acute respiratory failure with hypoxemia: (2) Pneumonia due to 2019 novel coronavirus: PLAN: RECOMMENDATIONS: 1. Continue patient on assist control mode of mechanical ventilation. Wean FiO2/PEEP to maintain saturations at or above 90%. 2. Completed Decadron. Continue baricitinib (06/17/2021) and Lovenox (therapeutic). 3. Continue tube feeds as tolerated. Aggressive bowel regimen 4. Continue scheduled Lasix as tolerated by hemodynamics and renal function. 5. Continue appropriate GI prophylaxis. IMPRESSIONS: 1. Acute hypoxemic respiratory failure secondary to COVID-19 pneumonia The patient presented to the hospital with progressive symptoms within 10 days of onset. He is unvaccinated at baseline. Unfortunately, the patient's oxygenation worsened and he failed to respond to noninvasive positive pressure ventilatory support, ultimately requiring intubation on June 06. The patient has completed a treatment course of antimicrobials and remdesivir. He will be continued on baricitinib and Lovenox as ordered. Decadron course completed. Diuretic therapy, as needed, can be utilized to maintain euvolemic state. Continue tube feeds as tolerated. Patient on scheduled Lasix at this time. 2. Acute on chronic kidney disease Resolved. Likely prerenal in etiology and related to acute presentation. Continue to monitor urine output for now. No current indication for renal replacement therapy. Avoid nephrotoxic medications. Electrolyte repletion as necessary 3. Anemia There are no overt signs of blood loss. Continue to monitor H&H daily. Transfuse if hemoglobin is less than 7 g/dL. Continue appropriate GI prophylaxis. Appears to be stable at this time. 4. Obesity/hypertension/hyperlipidemia Complicates care, management, recovery and prognosis. Continue home m edications as indicated. Liver function studies are acceptable at this time. Addendum 2:06 PM: Discussed with patient's brother and [id number] on the phone. They were updated on the patient's condition. After review of current condition and prognosis, they have decided to make the patient a DNR Comfort Care arrest. There is a possibility the patient will be made comfortable in the next 24 to 48 hours. Orders for DNR Comfort Care arrest with intubation have been placed. Family will coordinate possible visitation and comfort measures [facility] the [facility]. Patient's brother and [id number] from [place] do not anticipate traveling to [place] if comfort measures are pursued. Total discussion time of 15 minutes TIME: 47 minutes of critical care time, independent of procedures, was spent addres sing the patient's acute hypoxemic respiratory failure secondary to COVID-19 pneumonia, acute on chronic kidney disease, anemia, review of all data and collaboration with care team. (5:20 AM to 6:20 AM, 1 PM to 2:10 PM) Subjective Subjective Patient did okay overnight. Patient has tube feeds at 50 cc/h. Patient has had some intermittent sedation issues requiring increased propofol. Oxygenation is doing okay as long as patient is synchronous. Objective Data Objective Data Vital Signs: Vital Signs Temp Pulse Resp BP Pulse Ox 37.6 C H 60 17 126/57 H 91 06/14/21 06:00 06/14/21 06:00 06/14/21 06:00 06/14/21 06:00 06/14/21 06:00 Oxygen Flow Rate (L/min) 60 Oxygen Delivery Method Mechanical Ventilator Weight: 89.403 kg Body Mass Index (BMI) 30.1 Intake & Output: Intake and Output for Last 24 Hours 06/12/21 06/13/21 06/14/21 23:59 23:59 23:59 Intake Total 1897.32 / 2033.30 496.69 / 496.69 Output Total 2875 / 2875 300 / 300 Balance -977.68 / -841.70 196.69 / 196.69 Lab / Micro Data Result Diagrams: 06/14/21 04:25 06/14/21 04:25 Labs: Laboratory Results - last 24 hr 06/13/21 11:53: POC Glucose 206 H 06/13/21 18:12: POC Glucose 89 06/14/21 00:25: POC Glucose 130 H 06/14/21 04:25: WBC 8.8, RBC 4.32 L, Hgb 12.4 L, Hct 40.8, MCV 94.4 H, MCH 28.7, MCHC 30.4 L, RDW Std Deviation 47.9 H, RDW Coeff of Miles 13.7, Plt Count 368, MPV 9.7, Immature Gran % (Auto) 1.400 H, Neut % (Auto) 81.3 H, Lymph % (Auto) 7.6 L, [place] % (Auto) 5.5, Eos % (Auto) 4.1, Baso % (Auto) 0.1, Absolute Neuts (auto) 7.2, Absolute Lymphs (auto) 0.67 L, Nucleated RBC % 0 06/14/21 04:25: Sodium 142, Potassium 3.8, Chloride 103, Carbon Dioxide 36.0 H, Anion Gap 3 L, BUN 37 H, Creatinine 0.89, Estim Creat Clear Calc 68.31, Est GFR (MDRD) Af Amer 107, Est GFR (MDRD) Non-Af 89, BUN/Creatinine Ratio 41.7 H, Glucose 133 H, Calcium 9.3 06/14/21 04:25: Total Creatine Kinase 57, Triglycerides 349 H Micro: Microbiology 06/05/21 13:15 Blood Culture (Wb) - Anticubital Left Blood Culture - Final No growth in 5 days. 06/08/21 10:05 Sputum, Induced/Lukens Gram Stain - Final 06/08/21 10:05 Sputum, Induced/Lukens Respiratory Culture - Final Culture exhibits no growth. 06/06/21 09:40 Sputum, Induced/Lukens Gram Stain - Final 06/06/21 09:40 Sputum, Induced/Lukens Respiratory Culture - Final 06/04/21 18:05 Urine, Clean Catch Legionella Antigen - Final 06/04/21 18:05 Urine, Clean Catch Streptococcus pneumoniae Antigen (M - Final 06/04/21 09:40 Interface Orders Respiratory Panel (PCR) - Final Physical Exam Const no apparent distress Constitutional Narrative: No ventilator dyssynchrony. Plateau pressures are appropriate. General Appearance: intubated and patient mechanically ventilated Nutritional Appearance: obese HEENT normocephalic and head/scalp atraumatic Mouth: endotracheal tube in place and OG tube in place Eyes PERRL, EOMs intact bilaterally and conjunctivae normal Neck supple General: trachea midline Chest inspection of chest normal Chest: symmetrical chest wall rise; Negative for crepitus Resp Auscultation: diminished lung sounds; Negative for rales, rhonchi or wheezes Cardio regular rate, regular rhythm, S1 normal heart sound, S2 normal heart sound, no murmurs, no rub and no gallops GI normal to inspection, nondistended, normoactive bowel sounds Extremity General Extremity: Negative for clubbing, cyanosis or edema Skin no rashes or lesions noted Neuro Sensorium / Orientation: sedated on vent Charges/Coding Procedures Hospitalists Procedures: [id number] Critial Care 1st Hr
[2021-06-14] MEDS: Nystatin Powder 15gm Bottle 1 APPLIC TOPICAL (06:59)
[2021-06-14] MEDS: Propofol 10MG/Ml 1,000 MG/100 ML Bottle 10.9 MG CONT INF (07:05)
[2021-06-14] MEDS: Furosemide 40 MG/4 ML Vial IV (08:37)
[2021-06-14] MEDS: Enoxaparin 100 MG/ML Syringe 90 MG SC (08:37)
[2021-06-14] MEDS: CHLORHEXIDINE GLUC 2% CLOTH 1 EACH TOWELETTE TOPICAL (08:37)
[2021-06-14] MEDS: Ascorbic Acid 500 MG Tablet PO (08:37)
[2021-06-14] MEDS: Chlorhexidine 15 ML PO (08:38)
[2021-06-14] MEDS: 0.9% Saline Lock 10 ML Syringe IV (08:38)
[2021-06-14 12:10] LABS: Bedside Glucose 148 mg/dL (70-110)
[2021-06-14] MEDS: Senna/Docusate Sodium 1 Tablet 2 TABLET GT (12:28)
[2021-06-14] MEDS: Acetaminophen 650 MG/20 ML UDC GT (12:28)
[2021-06-14] MEDS: Polyethylene Glycol 3350 17 GM PACKET GT (12:29)
--- NOTE | 2021-06-14 13:29 | PCM.PN.HOSP ---
Subjective Subjective Follow-up on acute hypoxic respiratory failure/Acute COVID-19 pneumonia: Patient was seen and examined. His oxygen requirements have worsened. PEEP of 12 Objective Data Objective Data Vital Signs: Vital Signs Temp Pulse Resp BP Pulse Ox 100.6 F H 60 17 113/55 L 91 06/14/21 13:00 06/14/21 13:00 06/14/21 13:00 06/14/21 13:00 06/14/21 13:00 Oxygen Flow Rate (L/min) 60 Oxygen Delivery Method Mechanical Ventilator Weight: 89.403 kg Body Mass Index (BMI) 30.1 Intake & Output: Intake and Output for Last 24 Hours 06/12/21 06/13/21 06/14/21 23:59 23:59 23:59 Intake Total 1897.32 / 2033.30 1767.22 / 1767.22 Output Total 2875 / 2875 1984 Balance -977.68 / -841.70 -217.78 / -217.78 Lab / Micro Data Result Diagrams: 06/14/21 04:25 06/14/21 04:25 Labs: Laboratory Results - last 24 hr 06/13/21 18:12: POC Glucose 89 06/14/21 00:25: POC Glucose 130 H 06/14/21 04:25: WBC 8.8, RBC 4.32 L, Hgb 12.4 L, Hct 40.8, MCV 94.4 H, MCH 28.7, MCHC 30.4 L, RDW Std Deviation 47.9 H, RDW Coeff of Miles 13.7, Plt Count 368, MPV 9.7, Immature Gran % (Auto) 1.400 H, Neut % (Auto) 81.3 H, Lymph % (Auto) 7.6 L, [place] % (Auto) 5.5, Eos % (Auto) 4.1, Baso % (Auto) 0.1, Absolute Neuts (auto) 7.2, Absolute Lymphs (auto) 0.67 L, Nucleated RBC % 0 06/14/21 04:25: Sodium 142, Potassium 3.8, Chloride 103, Carbon Dioxide 36.0 H, Anion Gap 3 L, BUN 37 H, Creatinine 0.89, Estim Creat Clear Calc 68.31, Est GFR (MDRD) Af Amer 107, Est GFR (MDRD) Non-Af 89, BUN/Creatinine Ratio 41.7 H, Glucose 133 H, Calcium 9.3 06/14/21 04:25: Total Creatine Kinase 57, Triglycerides 349 H 06/14/21 12:07: POC Glucose 148 H Micro: Microbiology 06/05/21 13:15 Blood Culture (Wb) - Anticubital Left Blood Culture - Final No growth in 5 days. 06/08/21 10:05 Sputum, Induced/Lukens Gram Stain - Final 06/08/21 10:05 Sputum, Induced/Lukens Respiratory Culture - Final Culture exhibits no growth. 06/06/21 09:40 Sputum, Induced/Lukens Gram Stain - Final 06/06/21 09:40 Sputum, Induced/Lukens Respiratory Culture - Final 06/04/21 18:05 Urine, Clean Catch Legionella Antigen - Final 06/04/21 18:05 Urine, Clean Catch Streptococcus pneumoniae Antigen (M - Final 06/04/21 09:40 Interface Orders Respiratory Panel (PCR) - Final Physical Exam Narrative Physical exam: General: Sedated, intubated, HEENT: Atraumatic Oral: Moist Mucosa Neck: Supple Lungs: Clear to auscultation Cardiovascular: HS I+II, regular, no murmurs Abdomen: Bowel Sounds Present, Soft, Non Tender Extremities: No edema Assessment & Plan Assessment/Plan (1) Acute respiratory failure with hypoxemia: (2) Pneumonia due to 2019 novel coronavirus: (3) Prediabetes: PLAN: 1. Acute hypoxic respiratory failure secondary to acute COVID-19 pneumonia Status post intubation on 06/06/21 Oxygen requirements remain slightly worse Completed dexamethasone, continue on baricitinib 2. Acute kidney injury on CKD stage IIIa, improved Creatinine is now 0.84 Nephrology following 3. Elevated troponin secondary to NSTEMI type II as a result of demand ischemia secondary to #1 4. Rest of chronic conditions remained stable - home meds reviewed Charges/Coding Visit Charges Inpatient E&M: 37166 Subs Hosp L3
[2021-06-14] MEDS: LORazepam 2 MG/ML Syringe IV (15:23)
[2021-06-14] MEDS: Morphine 2 MG/ML Syringe IV ×2 (15:26→16:40)
--- NOTE | 2021-06-14 15:29 | NURSING ---
Patient's family, Kathi called for an update around 1300. Update given including increase of PEEP and unable to wean his oxygen at this time. She stated that he would not want this. This nurse offered to call the patient's brother, who is next of kin to give an update. Spoke to brother, Ge and discussed that the patient is not getting any better and getting worse. Also that Kathi stated he would not want to be like he is. Ge became tearful and handed the phone to his , Akosua. We discussed trach and peg vs terminally weaning the patient at day 14. Code status of full code vs DNR CCA was discussed. All questions were answered. Akosua and Ge called back to the ICU at 1345 and had a very lengthy conversation with Dr. French. Family decided to change the patient's code status to DNR-CCA and stated they wish to terminally wean but would like to give family a chance to come see the patient. Received a call at 1410 from Akosua that family is not coming to see the patient. Some are sick with Covid and others do not want to see him like this. They wish that the patient be terminally extubated as soon as possible. Dr. French notified. Housekeeping Director Ray in to see the patient. Dr. Kenney notified of the families wishes. Patient was terminally extubated at 1520. Morphine and Ativan given.
--- NOTE | 2021-06-14 17:30 | CHAPLAIN ---
Type of Pastoral Visit _x__ Initial Visit ___ Follow-up Visit ___ On-call Visit ___ General Patient Visit ___ Spiritual Assessment ___ Family Conference ___ Bereavement ___ Rapid Response ___ Code Blue _x__ Other (describe below) Pastoral Care Referral From ___ Patient _x__ Family _x__ Nurse _x__ Physician ___ Accounting Assistant ___ Application Internship ___ Other (describe below) Sacrament/Intervention ___ Active listening ___ Anointing ___ Christian ___ Bereavement ___ Communion ___ Destini exploration ___ ___ Life review _x__ Prayer ___ Reconciliation ___ Sacrament of Sick _x__ Supportive presence ___ Wedding _x__ Other (describe below) Pastoral Comments request came to offer prayers and give presence to patient who would be extubated soon; called to talk with emergency contact Kathi and she requested support for patient and was grateful for time given; pt is of the [employer] destini; sat at bedside before extubation and quoted scriptures, gave calm affirmation of destini, and offered prayer for patient; was present outside of room during extubation and following
--- NOTE | 2021-06-14 17:31 | NURSING ---
Patient without respirations, pulse and blood pressure. Verified with MARA Quinteros. Time of [id number]
--- NOTE | 2021-06-14 18:07 | PCM.DEATH ---
Preliminary Cause of Preliminary Cause of Preliminary Cause of : Acute hypoxic respiratory failure secondary to acute COVID-19 pneumonia Date of Admission: 06/04/21 Date of : 06/14/21 Principle Diagnosis Problem List: Active and Suspected Problems (Updated 06/07/21 @ 11:44 by NICKY Cazares) DAVID (acute kidney injury) (Acute) Prediabetes (Acute) Pneumonia due to 2019 novel coronavirus (Acute) Acute respiratory failure with hypoxemia (Acute) Hospital Course 76-year-old male with past medical history of hypertension, status post pacemaker, prediabetes who presents with shortness of breath, cough decreased sense of smell and taste ongoing for 7 days prior to admission. Patient had had a home Covid screen that was positive. In the emergency room, he was saturating 92 to 94% on 50% Ventimask. He was admitted to ICU and managed as acute COVID-19 pneumonia with respiratory failure. Assistant Boiler Operator and ID were consulted. Patient initially was on Airvo and BiPAP. He was intubated on 06/06/21. He was maintained on dexamethasone, remdesivir as well as baricitinib. He completed dexamethasone and remdesivir in this hospital. He remained on baricitinib. Patient had acute kidney injury on chronic kidney disease. Patient had issues with oxygenation and alcohol worse. He had intermittent sedation issues requiring increased propofol. Family were updated by clerical specialist of patient's general condition. Patient was made DNR CCA. Family later on decided to withdraw care. Time of was 1713hrs Assessment & Plan Assessment/Plan (1) DAVID (acute kidney injury): (2) Pneumonia due to 2019 novel coronavirus: (3) Acute respiratory failure with hypoxemia: Visit Charges Inpatient E&M: 10002 Disch Hosp
[2021-06-14 19:01] LABS: Bedside Glucose 137 mg/dL (70-110)
== END 2021-06-14 17:13 | DRG 207 ==
PROVIDERS: Internal Medicine; Internal Medicine Critical Care Medicine; Nurse Practitioner Adult Health; Admitting Provider Hospitalist; Visit Provider Internal Medicine
DX: U07.1 COVID-19 (principal); J12.82 Pneumonia due to coronavirus disease 2019; J96.01 Acute respiratory failure with hypoxia; N17.9 Acute kidney failure, unspecified; I24.8 Other forms of acute ischemic heart disease; E87.6 Hypokalemia; R73.03 Prediabetes; I12.9 Hypertensive chronic kidney disease with stage 1 through stage 4 chronic kidney disease, or unspecified chronic kidney disease; N18.31 Chronic kidney disease, stage 3a; Z28.3 Underimmunization status; E78.5 Hyperlipidemia, unspecified; E66.9 Obesity, unspecified; R31.9 Hematuria, unspecified; Z66 Do not resuscitate; D64.9 Anemia, unspecified; Z87.891 Personal history of nicotine dependence; Z88.5 Allergy status to narcotic agent; Z95.0 Presence of cardiac pacemaker; Z79.01 Long term (current) use of anticoagulants; Z90.49 Acquired absence of other specified parts of digestive tract; Z68.30 Body mass index [BMI] 30.0-30.9, adult; F41.9 Anxiety disorder, unspecified
CPT/HCPCS: 31500; 31720; 36569; 36600; 71045; 80048; 80053; 81001; 82550; 82803; 82962; 83735; 84145; 84478; 84484; 85025; 85379; 86140; 86850; 86900; 86901; 87040; 87070; 87205; 87449; 87633; 87641; 94002; 94003; 94660; 97802; 99251; J7050; A4216; G0463; J1940; J2405; J3010